=== PATIENT | female | born 1940 | race Caucasian/White ===

== ENCOUNTER → 2016-04-17 | Outpatient (CLI) | payer BC ==
[~2016-04-17] MED LIST: ASPI81TA25 PO; BUTA1CAP20 PO; CALC500C70 PO; DORZ1SOL6 OPL; IPRA0.037 NAE; LINA1CAP PO; MULT-506 PO; OFLO0.3S OPL; OMEP20CA9 PO; PRED1SUS3 OPL; PRED1SUS3 OPR; PRIM50TA29 PO; PROP10TA7 PO; PRVC10 PO; [UNRECOGNIZED DRUG - CODE] PO; [UNRECOGNIZED DRUG - CODE] PO
== END | disposition home or self-care (01) ==
LOC: C.PAPS 14:04
PROVIDERS: ATTEND Obstetrics & Gynecology
DX: Z01.419 Encounter for gynecological examination (general) (routine) without abnormal findings (principal); N81.10 Cystocele, unspecified

== ENCOUNTER → 2016-09-23 | Outpatient (CLI) | payer BC ==
[~2016-09-23] MED LIST changes: +IPRA0.06; +PROP150T2 PO
--- NOTE | 2016-09-23 14:55 | MAMMOGRAPHY REPORT ---
BILATERAL DIGITAL SCREENING MAMMOGRAM WITH CAD: 09/23/2016 CLINICAL HISTORY: Routine screening. Patient has no complaints. TECHNIQUE: Bilateral CC and MLO views were obtained. Current study was also evaluated with a Compute r Aided Detection (CAD) system. COMPARISON: Comparison is made to exams dated: 09/18/2015 mammogram, 09/12/2014 mammogram, 09/10/2013 romy mogram, 09/08/2012 mammogram, 06/26/2010 mammogram, and 06/12/2009 mammogram - [facility] BREAST COMPOSITION: The tissue of both breasts is heterogeneously dense, which may obscure small mas ses. FINDINGS: There are benign-appearing round and coarse calcifications in the breasts. No new suspicio us mass, architectural distortion or cluster of microcalcifications is seen. IMPRESSION: ACR BI-RADS CATEGORY 1: NEGATIVE There is no mammographic evidence of malignancy. A 1 year screening mammogram is recommended. The pa tient will receive written notification of the results. Approximately 10% of breast cancers are not detected with mammography. A negative mammographic report should not delay biopsy if a clinically suggestive mass is present. Sushma Love M.D. ay/:09/23/2016 13:54:21 [employer] Farmworker: Rosie Desai, [facility] letter sent: Normal 1/2 BI-RADS Code: ACR BI-RADS Category 1: Negative
== END | disposition home or self-care (01) ==
LOC: C.MAMM 13:21
PROVIDERS: ATTEND Internal Medicine
DX: Z12.31 Encounter for screening mammogram for malignant neoplasm of breast (principal)

== ENCOUNTER → 2016-10-15 | Outpatient (CLI) | payer BC ==
[~2016-10-15] MED LIST changes: -IPRA0.06; -PROP150T2 PO
== END ==
LOC: C.PATHSPEC 16:29
PROVIDERS: ATTEND Dermatology
DX: L57.0 Actinic keratosis (principal)

== ENCOUNTER → 2016-11-21 | Outpatient (CLI) | payer BC | END | disposition home or self-care (01) | LOC: C.PATHSPEC 17:08 | PROVIDERS: ATTEND Plastic Surgery | DX: D04.4 Carcinoma in situ of skin of scalp and neck (principal) ==

== ENCOUNTER → 2016-12-05 | Outpatient (CLI) | payer BC | END | disposition home or self-care (01) | LOC: C.PATHSPEC 17:56 | PROVIDERS: ATTEND Plastic Surgery | DX: L72.0 Epidermal cyst (principal) ==

== ENCOUNTER → 2016-12-06 | Outpatient (CLI) | payer BC ==
[2016-12-06 10:56] LABS: BASO % 0.7 %; BASO ABS # 0.04 K/uL (0-0.2); COMPLETE YES; EOS % 2.3 %; HEMATOCRIT 40.9 % (37-47); LYMPH % 29.2 %; LYMPH ABS # 1.63 K/uL (1.2-3.4); MEAN CELL VOLUME 90.7 fL (80-100); MEAN CORPUSCULAR HEMOGLOBIN 31.3 pg (25-34); MEAN CORPUSCULAR HGB CONC 34.5 g/dl (32-36); MEAN PLATELET VOLUME 10.5 fL (7.4-10.4); MONO % 9.3 %; NEUT % 58.5 %; PLATELET COUNT 305 K/uL (130-400); RED BLOOD COUNT 4.51 M/uL (4.2-5.4); WHITE BLOOD COUNT 5.59 K/uL (4.8-10.8)
[2016-12-06 11:06] LABS: ALT/SGPT 50 U/L (12-78); AST/SGOT 27 U/L (15-37); BLOOD UREA NITROGEN 13 mg/dl (7-18); BUN/CREATININE RATIO 15.5 (10-20); CALCIUM 9.2 mg/dl (8.5-10.1); CARBON DIOXIDE 33 mmol/L (21-32); CHLORIDE 100 mmol/L (98-107); CREATININE 0.85 mg/dl (0.60-1.20); GLUCOSE 89 mg/dl (70-99); POTASSIUM 4.1 mmol/L (3.5-5.1); SODIUM 135 mmol/L (136-145)
[2016-12-06 11:17] LABS: ALKALINE PHOSPHATASE 86 U/L (45-117); CHOLESTEROL 205 mg/dl (0-200); CHOLESTEROL/HDL RATIO 2.8; HDL CHOLESTEROL 73 mg/dl; LDL CHOLESTEROL CALCULATED 120 mg/dl; THYROID STIMULATING HORMONE 0.847 uIu/ml (0.300-4.500); TRIGLYCERIDES 61 mg/dl (0-150); VERY LOW DENSITY LIPOPROT CALC 12 mg/dl
== END | disposition home or self-care (01) ==
LOC: C.LABBC 09:02
PROVIDERS: ATTEND Internal Medicine
DX: I47.2 Ventricular tachycardia (principal)

== ENCOUNTER 2017-03-17 07:36 | Observation (INO) | payer BC ==
[2017-03-06 10:03] VITALS: BMI 21.0
--- NOTE | 2017-03-06 10:42 | PAT Medication Instructions ---
Service Date Mar 06, 2017. Current Home Medication List Fgacieisix-Toccrymwzgowk-Ffrjv (Butalbital/APAP/Caffeine 50-300-40 mg), 1-2 CAP PO q4-6hprn Calcium/Vitamin D (Os-[place] 500 Plus D), 1 TAB PO QD@1530 Ipratropium [place] (Nasal) (Ipratropium [place]), 2 SPRAYS NA TID Linaclotide (Linzess), 1 CAP PO QAM Multivitamin (Multivitamin), 1 TAB PO QAM [place]-3 Fatty Acids (Abington-3 Plus), 1 CAP PO QAM Omeprazole (Prilosec), 20 MG PO QAM Pravastatin Sod (Pravastatin Sodium), 1 TAB PO Q2D Primidone (Mysoline), 50 MG PO TID Propafenone HCl (Propafenone HCl), 1 TAB PO TID Propranolol Hcl (Inderal), 10 MG PO TID Medication Instructions For Your Scheduled Surgery - Hold the following medications starting tomorrow 03/07: [place]ington-3 Fatty Acids (Abington-3 Plus), 1 CAP PO QAM - Hold the following medications the morning of surgery: Linaclotide (Linzess), 1 CAP PO QAM Multivitamin (Multivitamin), 1 TAB PO QAM Yjyigmwhms-Vccncwkgsqbda-Gfwcw (Butalbital/APAP/Caffeine 50-300-40 mg), 1-2 CAP PO q4-6hprn - Take the following medications the morning of surgery with a sip of water: Propafenone HCl (Propafenone HCl), 1 TAB PO TID Propranolol Hcl (Inderal), 10 MG PO TID Primidone (Mysoline), 50 MG PO TID Ipratropium [place] (Nasal) (Ipratropium [place]), 2 SPRAYS NA TID Omeprazole (Prilosec), 20 MG PO QAM Pravastatin Sod (Pravastatin Sodium), 1 TAB PO Q2D - Take the following medications as scheduled the night before surgery: Propafenone HCl (Propafenone HCl), 1 TAB PO TID Propranolol Hcl (Inderal), 10 MG PO TID Primidone (Mysoline), 50 MG PO TID Calcium/Vitamin D (Os-[place] 500 Plus D), 1 TAB PO QD@1530 Ipratropium [place] (Nasal) (Ipratropium [place]), 2 SPRAYS NA TID If you have any questions please call us at [phone] or [phone] or [phone]
--- NOTE | 2017-03-06 11:23 | DIAGNOSTIC IMAGING REPORT ---
TWO VIEW CHEST CLINICAL HISTORY: Preoperative examination. FINDINGS: PA and lateral chest radiographs are compared to study dated 09/08/2009. The heart is enlarged and there is atherosclerotic calcification of the thoracic ureter. The pulmonary vasculature is noncongested. The mitral annulus is densely calcified. The lungs and pleural spaces are clear. There is no pneumothorax. The skeletal structures are osteopenic. The bony thorax appears intact. Cholecystectomy clips are seen in the right upper quadrant. IMPRESSION: Cardiomegaly with no active disease in the chest. Electronically signed by: Pedro Durán M.D. 03/06/2017 11:21 AM Dictated Date/Time: 03/06/2017 11:20 AM
[2017-03-06 11:50] LABS: BASO % 0.4 %; BASO ABS # 0.02 K/uL (0-0.2); COMPLETE YES; EOS % 1.3 %; HEMATOCRIT 38.8 % (37-47); LYMPH % 20.6 %; LYMPH ABS # 0.97 K/uL (1.2-3.4); MEAN CELL VOLUME 92.4 fL (80-100); MEAN CORPUSCULAR HGB CONC 33.5 g/dl (32-36); MEAN PLATELET VOLUME 9.9 fL (7.4-10.4); MONO % 9.5 %; NEUT % 68.2 %; PLATELET COUNT 268 K/uL (130-400); WHITE BLOOD COUNT 4.72 K/uL (4.8-10.8)
[2017-03-06 13:51] LABS: BUN/CREATININE RATIO 21.9 (10-20); CALCIUM 9.1 mg/dl (8.5-10.1); CREATININE 0.74 mg/dl (0.60-1.20); POTASSIUM 4.8 mmol/L (3.5-5.1)
[~2017-03-17] VITALS: Ht 152.4 cm; Wt 48.6 kg
[2017-03-17] VITALS (12 sets, daily range): BP systolic 125–199; BP diastolic 60–85; PULSE 66–73; TEMP 36.2–36.6; O2SAT 95–99; Ht 152.4 cm; Wt 48.6 kg
[~2017-03-17 07:36] MED LIST changes: -ASPI81TA25 PO; +CEFAZOLIN 2000MG IV PUSH 10 ML IV SCH; -DORZ1SOL6 OPL; -IPRA0.037 NAE; +IPRA0.06; +LACTATED RINGER'S 1000ML 1,000 ML IV SCH; -OFLO0.3S OPL; -PRED1SUS3 OPL; -PRED1SUS3 OPR; +PROP150T2 PO; -[UNRECOGNIZED DRUG - CODE] PO
--- NOTE | 2017-03-17 09:42 | DIAGNOSTIC IMAGING REPORT ---
LYMPH SENTINEL NODE ID CLINICAL HISTORY: BREAST CA TECHNIQUE: Sequential periareolar administration of 0.543 mCi technetium 99m lymphocele COMPARISON STUDY: None FINDINGS: Successful periareolar injection of a total of 0.543 mCi technetium 99m lymphocele IMPRESSION: Successful left periareolar [place] node injection. The above report was generated using voice recognition software. It may contain grammatical, syntax or spelling errors. Electronically signed by: Harshal Metzger M.D. 03/17/2017 9:40 AM Dictated Date/Time: 03/17/2017 9:38 AM
[2017-03-17] MEDS ORDERED: FENTANYL CITRATE INJ 50 MCG/1 ML 2 ML VIAL ONE (10:59)
[2017-03-17] MEDS ORDERED: MIDAZOLAM HCL 1 MG/ML 2ML VIAL ONE (10:59)
[2017-03-17] MEDS ORDERED: BUPIVACAINE 0.5 % 5 MG/1 ML MPF 30ML VIAL ONE (11:37)
[2017-03-17] MEDS ORDERED: METHYLENE BLUE 0.5% 10 ML VIAL ONE (11:37)
[2017-03-17] MEDS ORDERED: ISOSULFAN BLUE 10 MG/ML VIAL 5 ML ONE (11:37)
--- NOTE | 2017-03-17 12:02 | History & Physical Bridge Note ---
H&P Re-Evaluation Bridge Note: I have examined the patient, reviewed the History & Physical and in the interval since the performance of the History & Physical I have noted the following changes of clinical significance: No changes noted
[2017-03-17] MEDS ORDERED: ONDANSETRON INJ 2 MG/ML 2 ML VIAL ONE (12:25)
[2017-03-17] MEDS ORDERED: LIDOCAINE HCL 2% 2 ML VIAL (20MG/ML) ONE (12:25)
[2017-03-17] MEDS ORDERED: DEXAMETHASONE SOD INJ 4 MG/ML VIAL ONE (12:25)
[2017-03-17] MEDS ORDERED: PROPOFOL IV EMULSION 10 MG/ML 20 ML VIAL IV ONE (12:25)
[2017-03-17] MEDS ORDERED: EpHEDrine SULFATE INJ 50 MG/ML AMP ONE (12:31)
--- NOTE | 2017-03-17 13:24 | [facility] Operative Report ---
Operative Report Operative Date Mar 17, 2017. Pre-Operative Diagnosis Left Breast Cancer Post-Operative Diagnosis Left Breast Cancer Procedure(s) Performed Left Breast Lumpectomy with Needle Localization and Left [place] Lymph Node Biopsy Surgeon Dr. Edmondson Drug Abuse Social Worker Surgeon(s) MELO John Estimated Blood Loss 10 ml Findings SLN negative on frozen Specimens Frozen Section #1-- [place] Lymph Node #1 Left Breast--sent to pathology at 1242 A. Additional Left Axillary Tissue B. Left Breast Lumpectomy (needle= medial, skin= anterior, short silk= superior, long silk= inferior, methylene blue= deep/muscle) C. Additional Inferior Tissue Left Breast (Long silk= lateral, short silk= medial, methylene blue= new margin D. Additional Superior Tissue Left Breast (Long silk= lateral, short silk= medial, methylene blue= new margin Anesthesia gen/ LMA Complication(s) None Disposition Recovery Room / PACU I attest to the content of the Intraoperative Record and any orders documented therein. Any exceptions are noted below.
[2017-03-17] MEDS ORDERED: HYDROCODONE/ACETAMOPHEN 5/325MG TAB PO PRN (13:30)
[2017-03-17] MEDS ORDERED: MoRPHine SULFATE 4 MG/ML 1 ML CARP\\VIAL IV PRN (13:30)
[2017-03-17] MEDS ORDERED: ONDANSETRON INJ 2 MG/ML 2 ML VIAL IV PRN ×2 (13:30→13:45)
[2017-03-17] MEDS ORDERED: MoRPHine SULFATE 2 MG/ML CARP IV PRN (13:30)
[2017-03-17] MEDS ORDERED: HYDR-5688 PO (13:33)
--- NOTE | 2017-03-17 13:38 | Discharge Instructions ---
Discharge Instructions Date of Service Mar 17, 2017. Admission Reason for Admission: Left Breast Cancer W/Hosp Loc & Lymph Inj Discharge Discharge Diagnosis / Problem: Lt breast cancer Discharge Goals Goal(s): Decrease discomfort, Improve function, Improve disease control Activity Recommendations Activity Limitations: as noted below Lifting Limitations: no more than 10 pounds Exercise/Sports Limitations: until after follow-up appointment May Resume Sexual Activity: when tolerated Shower/Bathe: keep incision dry (may shower over incisions on 03/19) Driving or Machine Use: one week . Instructions / Follow-Up Instructions / Follow-Up SPECIAL CARE INSTRUCTIONS: * Cover incisions and change daily for comfort/drainage. * Leave steri strips in place * May use ibuprofen for pain as tolerated. * Expect some swelling and bruising. Call your doctor if: * Temperature above 101 degrees * Pain not relieved by pain medicine ordered * There is increased drainage or redness from any incision * You have any unanswered questions or concerns [phone]. FOLLOW UP VISIT: If not already scheduled, please call the office for a follow-up visit. for next week- check up, some suture removal OFFICE PHONE NUMBER: Dr. Edmondson Office Current Hospital Diet Patient's current hospital diet: Regular Diet Discharge Diet Recommended Diet: Regular Diet Procedures Procedures Performed: Left Breast Lumpectomy with Needle Localization and Left [place] Lymph Node Biopsy Pending Studies Studies pending at discharge: no Medical Emergencies . Who to Call and When: Medical Emergencies: If at any time you feel your situation is an emergency, please call 911 immediately. . Non-Emergent Contact Non-Emergency issues call your: Primary Care Provider, Surgeon . "Provider Documentation" section prepared by Raz Edmondson. . VTE Core Measure Inpt VTE Proph given/why not?: SCD's
[2017-03-17] MEDS ORDERED: FLUMAZENIL 0.1 MG/1 ML 10 ML VIAL IV PRN (13:45)
[2017-03-17] MEDS ORDERED: FENTANYL CITRATE INJ 50 MCG/1 ML 2 ML VIAL IV PRN (13:45)
[2017-03-17] MEDS ORDERED: EpHEDrine SULFATE INJ 50 MG/ML AMP IV PRN (13:45)
[2017-03-17] MEDS ORDERED: PROMETHAZINE HCL INJ 12.5 MG in SODIUM CHLORIDE 0.9% 50ML 50 ML IV PRN (13:45)
[2017-03-17] MEDS ORDERED: LABETALOL HCL IV 5 MG/ML 20ML IV PRN (13:45)
[2017-03-17] MEDS ORDERED: ATROPINE SULFATE 0.1 MG/ML 5ML SYR IV PRN (13:45)
[2017-03-17] MEDS ORDERED: NALOXONE HCL 0.4 MG/1 ML VIAL/CARP IV PRN (13:45)
[2017-03-17] MEDS ORDERED: IV FLUIDS COMPLETED PRN (14:00)
--- NOTE | 2017-03-17 14:26 | OPERATIVE REPORT ---
DATE OF OPERATION: 03/17/2017 NAME OF OPERATION: Needle localization, left partial mastectomy with sentinel lymph node biopsy. PREOPERATIVE DIAGNOSIS: Left breast cancer. POSTOPERATIVE DIAGNOSIS: Same. STAFF SURGEON: Raz Edmondson MD SURVEYOR HYDROGRAPHIC: Leslie German PA-C ANESTHESIA: General. PROCEDURE: The patient was brought in the operating room and placed on the operating table in supine position. She had undergone needle localization left breast and also injection in nuclear med for sentinel lymph node biopsy. Her left chest and axilla were prepped and draped in usual fashion. Initially, incision was made in the left axilla using the Neoprobe to identify the sentinel nodes which were sent for frozen section. Frozen section was negative. I did send some additional axillary tissue for permanent section. During the frozen section, we performed lumpectomy, making elliptical incision around the needle which was lateral, taking an ellipse of skin which was anterior down to the pectoralis major muscle, marking the tissue with needle, medial skin anterior, short silk suture superior, long silk suture inferior and methylene blue on the deep margin which was on the muscle. This was placed into the Faxitron, sent to Dr. Love, we had the clip within this tissue. At this point, I took additional superior and inferior tissue with it marked with a short silk suture medial, long silk suture lateral, methylene blue new margin. Two clips were placed on the muscle at the area of the tumor. The deep tissue on both the axilla and breast were reapproximated using 2-0 plain catgut suture, then the skin of the axilla reapproximated using 4-0 nylon suture in the breast using subcuticular 4-0 Monocryl with Steri-Strips. Dressing applied and patient transferred to recovery room in stable condition. I attest to the content of the Intraoperative Record and any orders documented therein. Any exception s are noted below.
--- NOTE | 2017-03-17 14:36 | Anesthesiology Progress Note ---
Anesthesia Post Op Note Date & Time Mar 17, 2017 at 14:36 Vital Signs Pain Intensity: 0 Vital Signs Past 12 Hours Date Time Temp Pulse Resp B/P (MAP) Pulse Ox O2 Delivery O2 Flow Rate FiO2 03/17/17 14:20 65 15 181/87 100 Nasal Cannula 2 03/17/17 14:10 68 18 188/81 98 Nasal Cannula 2 03/17/17 14:00 36.4 68 18 188/78 98 Nasal Cannula 2 03/17/17 13:50 65 18 172/89 98 Oxymask 3 03/17/17 13:40 70 18 178/92 98 Oxymask 5 03/17/17 13:32 36.6 68 16 184/86 99 Oxymask 10 03/17/17 10:02 36.4 68 18 186/85 (118) 97 Room Air Notes Mental Status: alert / awake / arousable, participated in evaluation Pt Amnestic to Procedure: Yes Nausea / Vomiting: adequately controlled Pain: adequately controlled Airway Patency, RR, SpO2: stable & adequate BP & HR: stable & adequate Hydration State: stable & adequate Anesthetic Complications: no major complications apparent
[2017-03-17] MEDS ORDERED: LACTATED RINGER'S 1000ML 1,000 ML IV SCH (16:00)
--- NOTE | 2017-03-17 16:10 | Medical Consult ---
Consultation Date of Consultation: Mar 17, 2017. Attending Physician: Raz Edmondson M.D. Reason for Consultation: Medical Management History of Present Illness Ms. Villafana is a 76 y/o female with PMHx of Idiopathic VT and A Flutter S/P Ablation (2009), IBS-C, HLD, Carotid Stenosis, and Familial Tremor who is S/P L Partial Mastectomy with [place] Lymph Node Bx on 03/17. Patient is currently pain free and verbalizes no complaints. She hasn't had a diet yet but denying any nausea/vomiting. She has a bothersome tremor that easily worsens when not on her maintenance medication. She utilizes Propranolol and Primidone for tremor management. She has been on Propafenone as an anti-arrhythmic long-term. She denies further cardiac history and denies history of DVT. She is hypertensive on vital checks and states she does have fluctuating BPs. Past Medical/Surgical History 1. Idiopathic VT 2. A Flutter S/P Ablation (2009) 3. IBS-C 4. Familial Tremor 5. Carotid Stenosis Family History Breast Cancer SISTER Heart Disease FATHER MOTHER Social History Smoking Status: Never Smoker Smokeless Tobacco Use: No Alcohol Use: none Drug Use: none Marital Status: Housing Status: lives with significant other Occupation Status: retired Allergies Coded Allergies: Sulfa Drugs (Verified Allergy, Mild, rash, 03/17/17) Simvastatin (Unverified Adverse Reaction, Mild, HEADACHE, 03/17/17) Current Inpatient Medications Current Inpatient Medications Medications (Trade) Dose Ordered Sig/Brennen Route Start Time Stop Time Status Last Admin Dose Admin Lactated Ringer's 1,000 ml @ 50 mls/hr Q20H IV 03/17/17 16:00 03/17/17 18:00 Propranolol HCl (Inderal Tab) 10 mg TID PO 03/17/17 16:00 04/16/17 15:59 Cefazolin Sodium 1000 mg/Syringe 5 ml @ 100 mls/hr Q8H IV 03/17/17 20:00 03/18/17 19:59 Acetaminophen/ Hydrocodone Bitart ([place] 5/325 Tab) 1 tab Q4 PRN PO 03/17/17 13:30 03/31/17 13:29 Acetaminophen/ Hydrocodone Bitart ([place] 5/325 Tab) 2 tab Q4 PRN PO 03/17/17 13:30 03/31/17 13:29 Morphine Sulfate (MoRPHine SULFATE INJ) 2 mg Q4H PRN IV 03/17/17 13:30 03/31/17 13:29 Morphine Sulfate (MoRPHine SULFATE INJ) 4 mg Q4H PRN IV 03/17/17 13:30 03/31/17 13:29 Ondansetron HCl (Zofran Inj) 4 mg Q6H PRN IV 03/17/17 13:30 04/16/17 13:29 Fentanyl Citrate (Fentanyl Inj) 25 mcg Q5M PRN IV 03/17/17 13:45 03/17/17 18:45 Naloxone HCl (Narcan Inj) 0.2 mg Q2M PRN IV 03/17/17 13:45 03/17/17 18:45 Flumazenil (Romazicon Inj) 0.2 mg Q2M PRN IV 03/17/17 13:45 03/17/17 18:45 Ondansetron HCl (Zofran Inj) 4 mg ONE PRN IV 03/17/17 13:45 03/17/17 18:45 Promethazine HCl 12.5 mg/Sodium Chloride 50.5 ml @ 202 mls/hr ONE PRN IV 03/17/17 13:45 03/17/17 18:45 Labetalol HCl (Normodyne IV) 5 mg Q5M PRN IV 03/17/17 13:45 03/17/17 18:45 Ephedrine Sulfate (EpHEDrine SULFATE INJ) 5 mg Q5M PRN IV 03/17/17 13:45 03/17/17 18:45 Atropine Sulfate (Atropine Sulfate 0.1MG/Ml Inj) 0.5 mg Q1M PRN IV 03/17/17 13:45 03/17/17 18:45 Miscellaneous (Iv Fluids Completed) 1 ea PRN PRN N/A 03/17/17 14:00 03/17/18 13:59 Review of Systems Constitutional: No fever, No chills Respiratory: No cough, No shortness of breath Cardiovascular: No chest pain Abdomen: + constipation (chronic issue), No pain, No nausea, No vomiting, No diarrhea Musculoskeletal: No swelling, No calf pain Genitourinary - Female: No dysuria Hematologic / Lymphatic: No abnormal bleeding/bruising Integumentary: No rash Physical Exam Date Time Temp Pulse Resp B/P (MAP) Pulse Ox O2 Delivery O2 Flow Rate FiO2 03/17/17 15:43 36.2 73 16 175/84 (114) 98 Room Air 03/17/17 14:45 36.4 70 18 199/84 (122) 97 Room Air 03/17/17 14:20 65 15 181/87 100 Nasal Cannula 2 03/17/17 14:10 68 18 188/81 98 Nasal Cannula 2 03/17/17 14:00 36.4 68 18 188/78 98 Nasal Cannula 2 03/17/17 13:50 65 18 172/89 98 Oxymask 3 03/17/17 13:40 70 18 178/92 98 Oxymask 5 03/17/17 13:32 36.6 68 16 184/86 99 Oxymask 10 03/17/17 10:02 36.4 68 18 186/85 (118) 97 Room Air General Appearance: no apparent distress, + thin Head: normocephalic, atraumatic Eyes: sclerae normal ENT: hearing grossly normal Neck: supple, no JVD, trachea midline Respiratory/Chest: lungs clear, + pertinent finding (dressing to upper/mid L chest - C/D/I) Cardiovascular: regular rate, rhythm, no gallop, no murmur Abdomen/GI: normal bowel sounds, non tender, soft Back: normal inspection Extremities/Musculoskelatal: no calf tenderness, no pedal edema Neurologic/Psych: alert, oriented x 3, + pertinent finding (mild tremor of hands/head) Skin: normal color, warm/dry Assessment & Plan Ms. Villafana is a 76 y/o female with PMHx of Idiopathic VT and A Flutter S/P Ablation (2009), IBS-C, HLD, Carotid Stenosis, and Familial Tremor who is S/P L Partial Mastectomy with [place] Lymph Node Bx on 03/17. S/P Partial Mastectomy with [place] Lymph Node Bx on 03/17: - Pain management, IVF, DVT prophylaxis per primary Hypertension: - Reporting fluctuating BPs chronically - may be situational and would recommend monitoring - Should be discussed with PCP about anti-hypertensives if warranted Idiopathic VT and A Flutter S/P Ablation (2009): STABLE - Examination reveals a normal rhythm - Propafenone 150 mg TID Familial Tremor: - Propranolol 10 mg TID and Primidone 50 mg TID HLD/Mild Carotid Stenosis: - Continue Pravastatin Q2D IBS-C: - On Linzess - non-formulary and can be continued on D/C; recommend good bowel regimen Thank you for the consultation. We will continue to follow
[2017-03-17] MEDS: PROPRANOLOL HCL 10 MG TAB PO SCH ×2 (16:31→21:45)
[2017-03-17] MEDS: HYDROCODONE/ACETAMOPHEN 5/325MG TAB PO PRN ×2 (18:06→22:32)
[2017-03-17] MEDS: CEFAZOLIN IV 1,000 MG in SYRINGE 0 ML IV SCH (19:34)
[2017-03-17] MEDS: PRIMIDONE 50 MG TAB PO SCH (21:45)
[2017-03-17] MEDS: PROPAFENONE HCL 150 MG TAB PO SCH (21:45)
[2017-03-18 03:34] VITALS: BP 161/65; PULSE 68; TEMP 36.6; O2SAT 98
[2017-03-18] MEDS: CEFAZOLIN IV 1,000 MG in SYRINGE 0 ML IV SCH (03:42)
--- NOTE | 2017-03-18 07:01 | DISCHARGE SUMMARY ---
PRINCIPAL DIAGNOSIS: Left breast cancer. PROCEDURES: The patient underwent left breast lumpectomy with sentinel lymph node biopsy. HISTORY OF PRESENT ILLNESS: The patient is a 76-year-old female who had undergone prior biopsy of left breast showing breast cancer. HOSPITAL COURSE: The patient was brought into the hospital on 03/17/2017 where she underwent prior needle localization with breast injection and then left sentinel lymph node biopsy with left lumpectomy. The patient did very well overnight and is felt stable for discharge home today to be followed in the surgical clinic next week.
[2017-03-18 07:08] VITALS: BP 159/74; PULSE 68; TEMP 36.7; O2SAT 97
[2017-03-18] MEDS: PRIMIDONE 50 MG TAB PO SCH (07:24)
[2017-03-18] MEDS: PROPAFENONE HCL 150 MG TAB PO SCH (07:25)
[2017-03-18] MEDS: PROPRANOLOL HCL 10 MG TAB PO SCH (07:25)
--- NOTE | 2017-03-18 07:46 | MAMMOGRAPHY REPORT ---
NEEDLE LOCALIZATION LEFT BREAST: 03/17/2017 CLINICAL HISTORY: Biopsy-proven carcinoma in the 7:00 left breast. Patient presents for preoperative needle wire localization prior to lumpectomy. COMPARISON: Comparison is made to exams dated: 02/07/2017 ultrasound biopsy, 02/07/2017 mammogram, ultrasound, 01/30/2017 mammogram, 09/23/2016 mammogram, and 09/18/2015 mammogram - [facility]. PATIENT CONSENT: The risks of the procedure were explained to the patient and informed consent was ob tained. The patient denied eating or drinking anything this morning that would preclude anesthesia. She also denied allergy to lidocaine. PROCEDURE DESCRIPTION: Prior diagnostic mammogram and ultrasound of the left breast dated 01/30/2017, ultrasound-guided core biopsy of the left breast dated 02/07/2017 and post procedure mammograms from the same day were reviewed. The 11 mm hypoechoic palpable mass in the 7:00 left breast as the inten ded target for preoperative localization. With the patient in supine position, the skin of the left breast was cleansed with Betadine. 1% buffered Lidocaine without epinephrine was administered as loc al anesthesia. A 5cm Heard II needle and wire combination was inserted into the breast. Optimal pos itioning was confirmed and the wire was locked in place, leaving both the needle and wire within the breast, as per surgeon's preference. Postprocedure left CC and ML views were obtained. In the CC pr ojection, the localizing needle and wire are both optimally visualized. The biopsy marker clip is ju st anterior to the notch in the needle from which the wire exits. The entire procedure including luna bae and needle length were discussed with the operating surgeon prior to surgery. The patient lawrence rated the procedure well and there was no immediate complication. She was transferred to the operati ng room in satisfactory condition. The left breast specimen radiograph demonstrates the localizing needle and wire, ribbon-shaped biopsy marker clip and groupings of microcalcifications and density, compatible with successful preoperativ e localization and subsequent surgical excision. IMPRESSION: NEEDLE LOCALIZATION Status post successful preoperative needle wire localization for biopsy-proven carcinoma in the 7:00 left breast. The imaged specimen includes the intended abnormalities. The patient will receive notification of the final pathology results from her referring physician. Sushma Love M.D. ay/:03/17/2017 15:05:58 [employer] Supervisor: Laya SIMMONS(Bonnie)(Mirna), [facility]
--- NOTE | 2017-03-18 07:46 | MAMMOGRAPHY REPORT ---
SPECIMEN: 03/17/2017 CLINICAL HISTORY: Recent biopsy proven left breast carcinoma. Patient presents for preoperative need le and wire localization. Please refer to the report from left breast ultrasound guided needle localization performed at the [facility] time for full detail. IMPRESSION: SPECIMEN Please refer to the report from left breast ultrasound guided needle localization performed at the [facility] time for full detail. Sushma Love M.D. ay/:03/17/2017 15:02:18 Teaching Manager: Laya SIMMONS(R)(M), [facility]
--- NOTE | 2017-03-18 07:49 | MAMMOGRAPHY REPORT ---
UNILATERAL LEFT DIGITAL DIAGNOSTIC MAMMOGRAM TOMOSYNTHESIS: 03/17/2017 CLINICAL HISTORY: 76-year-old woman presents for preoperative needle localization in the left breast for recent biopsy proven carcinoma. Please refer to the report from left breast needle localization with imaging performed at the same ti me for full detail. IMPRESSION: Please refer to the report from left breast needle localization with imaging performed at the same ti me for full detail. Approximately 10% of breast cancers are not detected with mammography. A negative mammographic report should not delay biopsy if a clinically suggestive mass is present. Sushma Love M.D. ay/:03/17/2017 08:30:25 Pharmaceutical Engineer: Laya SIMMONS(Bonnie)(M), [facility] BI-RADS Code: n/a
--- NOTE | 2017-03-18 07:53 | Anesthesiology Progress Note ---
Anesthesia Post Op Note Date & Time Mar 18, 2017 at 07:53 Vital Signs Pain Intensity: 0.0 Vital Signs Past 12 Hours Date Time Temp Pulse Resp B/P (MAP) Pulse Ox O2 Delivery O2 Flow Rate FiO2 03/18/17 07:40 Room Air 03/18/17 07:08 36.7 68 18 159/74 (102) 97 Room Air 03/18/17 03:34 36.6 68 18 161/65 (97) 98 Room Air 03/18/17 00:15 Room Air 03/17/17 22:57 36.4 69 16 125/60 (81) 99 Room Air 03/17/17 21:45 69 154/69 (97) 03/17/17 20:27 95 Room Air Notes Mental Status: alert / awake / arousable, participated in evaluation Pt Amnestic to Procedure: Yes Nausea / Vomiting: adequately controlled Pain: adequately controlled Airway Patency, RR, SpO2: stable & adequate BP & HR: stable & adequate Hydration State: stable & adequate Anesthetic Complications: no major complications apparent
[2017-03-18 08:10] VITALS: BP 159/74; PULSE 68; TEMP 36.7; O2SAT 97
== END 2017-03-18 10:26 | disposition home or self-care (01) ==
LOC: C.ACU 07:36 → C.MSN 09:25 → ENRESERV 13:56
PROVIDERS: ADMIT Surgery; ATTEND Surgery
DX: C50.912 Malignant neoplasm of unspecified site of left female breast (principal); I65.29 Occlusion and stenosis of unspecified carotid artery; I47.2 Ventricular tachycardia; K58.9 Irritable bowel syndrome, unspecified; I10 Essential (primary) hypertension; E78.5 Hyperlipidemia, unspecified; K21.9 Gastro-esophageal reflux disease without esophagitis; Z80.3 Family history of malignant neoplasm of breast; Z82.49 Family history of ischemic heart disease and other diseases of the circulatory system

== ENCOUNTER → 2017-04-10 | Outpatient (CLI) | payer BC ==
[~2017-04-10] MED LIST changes: +ASPI81TA28 PO; -CALC500C70 PO; -CEFAZOLIN 2000MG IV PUSH 10 ML IV SCH; +DIPH25CA5 PO; -LACTATED RINGER'S 1000ML 1,000 ML IV SCH; -[UNRECOGNIZED DRUG - CODE] PO
--- NOTE | 2017-04-10 10:16 | DIAGNOSTIC IMAGING REPORT ---
L PELVIS UNI HIP 2-3 V CLINICAL HISTORY: LEFT HIP PAIN pain COMPARISON: None. DISCUSSION: Nondisplaced cortical fracture medial left pubic ring. Mild degenerative change left hip. No evidence for acetabular protrusion. Right hip is unremarkable. There is no evidence for soft tissue swelling. IMPRESSION: Nondisplaced cortical/buckle fracture left symphysis pubis/medial pubic ring. No acute process of the hips. The above report was generated using voice recognition software. It may contain grammatical, syntax or spelling errors. Electronically signed by: Harshal Metzger M.D. 04/10/2017 10:15 AM Dictated Date/Time: 04/10/2017 10:14 AM
== END | disposition home or self-care (01) ==
LOC: C.RDSM 10:48
PROVIDERS: ATTEND Family Medicine
DX: M25.552 Pain in left hip (principal)

== ENCOUNTER → 2017-05-01 | Outpatient (CLI) | payer BC ==
--- NOTE | 2017-05-01 11:26 | DIAGNOSTIC IMAGING REPORT ---
L PELVIS UNI HIP 2-3 V CLINICAL HISTORY: Left hip pain. Follow-up pelvic fracture. COMPARISON: Pelvis and left hip radiograph April 10, 2017. FINDINGS: No proximal left femoral fracture is noted. A mildly displaced fracture of the medial left pubic bone is similar appearance to prior exam of April 10, 2017. There is equivocal cortical irregularity of the right sacral ala. IMPRESSION: 1. No change in alignment of the minimally displaced medial left pubic bone fracture. 2. Possible right sacral ala fracture. Electronically signed by: Michi Mcclendon M.D. 05/01/2017 11:24 AM Dictated Date/Time: 05/01/2017 11:22 AM
== END | disposition home or self-care (01) ==
LOC: C.RDSM 11:05
PROVIDERS: ATTEND Family Medicine
DX: M25.552 Pain in left hip (principal)

== ENCOUNTER → 2017-05-29 | Outpatient (CLI) | payer BC ==
--- NOTE | 2017-05-29 11:31 | DIAGNOSTIC IMAGING REPORT ---
L PELVIS UNI HIP 2-3 V CLINICAL HISTORY: LEFT HIP PAIN COMPARISON: 05/01/2017 DISCUSSION: There is a healing fracture of the left medial pubic bone. No acute fractures are visualized. There are no dislocations. Note is made of a pessary. IMPRESSION: 1. Healing fracture of the left medial pubic bone 2. No evidence of hip fracture. Electronically signed by: Bernard Mo M.D. 05/29/2017 11:30 AM Dictated Date/Time: 05/29/2017 11:28 AM
== END | disposition home or self-care (01) ==
LOC: C.RDSM 17:34
PROVIDERS: ATTEND Family Medicine
DX: M25.552 Pain in left hip (principal)

== ENCOUNTER → 2017-07-10 | Outpatient (CLI) | payer BC | END | disposition home or self-care (01) | LOC: C.MAMM 09:44 | PROVIDERS: ATTEND Internal Medicine Hematology & Oncology | DX: C50.919 Malignant neoplasm of unspecified site of unspecified female breast (principal); M85.88 Other specified disorders of bone density and structure, other site ==

== ENCOUNTER 2017-08-12 09:33 | Inpatient (IN) | payer BC, OTHER ==
[~2017-08-12] VITALS: Ht 152.4 cm; Wt 51.3 kg
[2017-08-12] VITALS (7 sets, daily range): BP systolic 127–171; BP diastolic 69–78; PULSE 64–74; TEMP 36.5–36.7; O2SAT 95–99; Ht 152.4 cm; Wt 51.3 kg
[2017-08-12] MEDS ORDERED: SODIUM CHLORIDE 0.9% 1000ML 1,000 ML IV STA (10:11)
[2017-08-12 10:18] LABS: BASO % 0.5 %; BASO ABS # 0.03 K/uL (0-0.2); EOS % 1.7 %; EOS ABS # 0.11 K/uL (0-0.5); HEMATOCRIT 37.6 % (37-47); IG# 0.01 K/uL (0.00-0.02); LYMPH % 19.3 %; LYMPH ABS # 1.28 K/uL (1.2-3.4); MEAN CELL VOLUME 89.3 fL (80-100); MEAN CORPUSCULAR HEMOGLOBIN 30.9 pg (25-34); MEAN CORPUSCULAR HGB CONC 34.6 g/dl (32-36); MEAN PLATELET VOLUME 9.7 fL (7.4-10.4); MONO % 8.1 %; MONO ABS # 0.54 K/uL (0.11-0.59); NEUT % 70.2 %; NEUT ABS # 4.67 K/uL (1.4-6.5); PLATELET COUNT 288 K/uL (130-400); RED CELL DISTRIBUTION WIDTH CV 14.2 % (11.5-14.5); RED CELL DISTRIBUTION WIDTH SD 46.3 fL (36.4-46.3); WHITE BLOOD COUNT 6.64 K/uL (4.8-10.8)
[2017-08-12] MEDS ORDERED: ARM1 PO (10:26)
[2017-08-12 10:27] LABS: ALBUMIN 3.4 gm/dl (3.4-5.0); ALT/SGPT 31 U/L (12-78); AST/SGOT 27 U/L (15-37); BLOOD UREA NITROGEN 18 mg/dl (7-18); CALCIUM 8.7 mg/dl (8.5-10.1); CARBON DIOXIDE 26 mmol/L (21-32); CREATININE 1.03 mg/dl (0.60-1.20); GLUCOSE 143 mg/dl (70-99); POTASSIUM 4.3 mmol/L (3.5-5.1); SODIUM 134 mmol/L (136-145)
--- NOTE | 2017-08-12 10:33 | DIAGNOSTIC IMAGING REPORT ---
CHEST ONE VIEW PORTABLE HISTORY: EVALUATE ALTERED MENTAL STATUS/WEAKNESS COMPARISON: Chest 03/06/2017. FINDINGS: Stable punctate calcified granuloma within the right midlung zone. The lungs are otherwise clear. No pleural effusions. No pneumothorax. The heart remains mildly enlarged. IMPRESSION: Stable mild cardiomegaly. Electronically signed by: Devaughn Guadarrama M.D. 08/12/2017 10:32 AM Dictated Date/Time: 08/12/2017 10:31 AM
[2017-08-12 10:37] LABS: ALKALINE PHOSPHATASE 70 U/L (45-117); TOTAL PROTEIN 6.8 gm/dl (6.4-8.2)
[2017-08-12] MEDS ORDERED: ALUMINUM/MAGNESIUM/SIMETH (MAALOX MAX) 30 ML UDC PO PRN (11:15)
[2017-08-12] MEDS ORDERED: POLYETHYLENE (MIRALAX) 17 GM PACK PO PRN (11:15)
[2017-08-12] MEDS ORDERED: MAGNESIUM HYDROXIDE SUSP 30 ML UDC PO PRN (11:15)
[2017-08-12] MEDS ORDERED: ACETAMINOPHEN 325 MG TAB PO PRN (11:15)
[2017-08-12] MEDS ORDERED: MoRPHine SULFATE 2 MG/ML CARP IV PRN (11:15)
[2017-08-12] MEDS ORDERED: ONDANSETRON INJ 2 MG/ML 2 ML VIAL IV PRN (11:15)
--- NOTE | 2017-08-12 12:08 | History and Physical ---
History & Physical Date & Time of Service: August 12, 2017 at 11:51 Chief Complaint: Primary Care Physician: Ramon Ortiz M.D. History of Present Illness Source: patient 77 y/o F hx VT - ablation, tremor, HPL, breast CA. 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 She was transported to the ER after a code purple was called. She had regained full consciousness and was asymptomatic on arrival. She denies CP, SOB, nausea and vomiting and did not fully lose consciousness. Initial EKG revealed AF with an average rate of 60 and pauses of 2-3 seconds. A repeat EKG showed reversion to a sinus rhythm. Past Medical/Surgical History 1) VT - history of ablation 2) HPL 3) Breast CA 4) Tremor Family History Breast Cancer SISTER Heart Disease FATHER MOTHER Social History Smoking Status: Never Smoker Drug Use: none Marital Status: Housing status: lives with family Occupational Status: retired Immunizations History of Influenza Vaccine: Yes Influenza Vaccine Date: Dec 17, 2006 History of Tetanus Vaccine?: Unknown History of Pneumococcal: Unknown Pneumococcal Date: August 17, 2007 History of Hepatitis B Vaccine: Unknown Allergies Coded Allergies: Sulfa Drugs (Verified Allergy, Mild, rash, 08/12/17) Simvastatin (Unverified Adverse Reaction, Mild, HEADACHE, 08/12/17) Home Medications Scheduled Anastrozole (Anastrozole), 1 MG PO DAILY Aspirin (Aspirin Ec), 81 MG PO DAILY Tkhptwqjve-Tvbimjlptwgfb-Pmejn (Butalbital/APAP/Caffeine 50-300-40 mg), 1-2 CAP PO q4-6hprn Ipratropium [place] (Nasal) (Ipratropium [place]), 2 SPRAYS NA TID Linaclotide (Linzess), 145 MCG PO QAM Multivitamin (Multivitamin), 1 TAB PO QAM Omeprazole (Prilosec), 20 MG PO QAM Pravastatin Sod (Pravastatin Sodium), 10 MG PO Q2D Primidone (Mysoline), 50 MG PO TID Propafenone HCl (Propafenone HCl), 150 MG PO TID Propranolol Hcl (Inderal), 10 MG PO TID Scheduled PRN Diphenhydramine Hcl (Benadryl), 25 MG PO HS PRN for Sleep Review of Systems Constitutional: + sweats, No fever, No chills Eyes: No worsening of vision ENT: No hearing loss, No unusual epistaxis, No nasal symptoms Respiratory: No cough, No sputum, No wheezing Cardiovascular: + palpitations, No chest pain, No orthopnea, No PND Abdomen: No pain, No nausea, No vomiting Musculoskeletal: No joint pain Genitourinary - Female: No dysuria, No urinary frequency, No urinary urgency Neurologic: + problem reported (Near-sncope as above - chronic tremor), No memory loss, No paralysis Psychiatric: No depression symptoms Endocrine: No fatigue Hematologic / Lymphatic: No abnormal bleeding/bruising Integumentary: No rash Allergic / Immunologic: No environmental allergies Physical Exam Vital Signs Date Time Temp Pulse Resp B/P (MAP) Pulse Ox O2 Delivery O2 Flow Rate FiO2 08/12/17 11:47 73 161/78 100 08/12/17 10:57 64 18 146/73 95 Room Air 08/12/17 10:38 97 Room Air 08/12/17 10:26 66 16 143/70 99 Room Air 08/12/17 09:54 36.4 58 16 120/65 97 Room Air 08/12/17 09:41 49 General Appearance: WD/WN, no apparent distress Head: normocephalic Eyes: normal inspection ENT: normal ENT inspection, pharynx normal Neck: supple, no adenopathy, no JVD Cardiovascular: regular rate, rhythm, no edema, no gallop Abdomen/GI: normal bowel sounds, non tender, soft Back: normal inspection, no CVA tenderness Extremities/Musculoskelatal: normal inspection, no calf tenderness, normal capillary refill Neurologic/Psych: normal reflexes Diagnostics Laboratory Results Results Past 24 Hours Test 08/12/17 09:35 Range/Units White Blood Count 6.64 4.8-10.8 K/uL Red Blood Count 4.21 4.2-5.4 M/uL Hemoglobin 13.0 12.0-16.0 g/dL Hematocrit 37.6 37-47 % Mean Corpuscular Volume 89.3 80-100 fL Mean Corpuscular Hemoglobin 30.9 25-34 pg Mean Corpuscular Hemoglobin Concent 34.6 32-36 g/dl Platelet Count 288 130-400 K/uL Mean Platelet Volume 9.7 7.4-10.4 fL Neutrophils (%) (Auto) 70.2 % Lymphocytes (%) (Auto) 19.3 % Monocytes (%) (Auto) 8.1 % Eosinophils (%) (Auto) 1.7 % Basophils (%) (Auto) 0.5 % Neutrophils # (Auto) 4.67 1.4-6.5 K/uL Lymphocytes # (Auto) 1.28 1.2-3.4 K/uL Monocytes # (Auto) 0.54 0.11-0.59 K/uL Eosinophils # (Auto) 0.11 0-0.5 K/uL Basophils # (Auto) 0.03 0-0.2 K/uL RDW Standard Deviation 46.3 36.4-46.3 fL RDW Coefficient of Variation 14.2 11.5-14.5 % Immature Granulocyte % (Auto) 0.2 % Immature Granulocyte # (Auto) 0.01 0.00-0.02 K/uL Prothrombin Time 10.6 9.0-12.0 SECONDS Prothromb Time International Ratio 1.0 0.9-1.1 Activated Partial Thromboplast Time 25.0 21.0-31.0 SECONDS Partial Thromboplastin Ratio 1.0 Sodium Level 134 136-145 mmol/L Potassium Level 4.3 3.5-5.1 mmol/L Chloride Level 101 98-107 mmol/L Carbon Dioxide Level 26 21-32 mmol/L Anion Gap 8.0 3-11 mmol/L Blood Urea Nitrogen 18 7-18 mg/dl Creatinine 1.03 0.60-1.20 mg/dl Est Creatinine Clear Calc Drug Dose 35.9 ml/min Estimated GFR () 60.3 Estimated GFR (Non- 52.0 BUN/Creatinine Ratio 17.9 10-20 Random Glucose 143 70-99 mg/dl Calcium Level 8.7 8.5-10.1 mg/dl Magnesium Level 2.0 1.8-2.4 mg/dl Total Bilirubin 0.3 0.2-1 mg/dl Direct Bilirubin < 0.1 0-0.2 mg/dl Aspartate Amino Transf (AST/SGOT) 27 15-37 U/L Alanine Aminotransferase (ALT/SGPT) 31 12-78 U/L Alkaline Phosphatase 70 45-117 U/L Troponin I < 0.015 0-0.045 ng/ml Total Protein 6.8 6.4-8.2 gm/dl Albumin 3.4 3.4-5.0 gm/dl Thyroid Stimulating Hormone (TSH) 2.550 0.300-4.500 uIu/ml Impression Assessment and Plan 77 y/o F hx VT - ablation, tremor, HPL, breast CA. 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 She was transported to the ER after a code purple was called. She had regained full consciousness and was asymptomatic on arrival. She denies CP, SOB, nausea and vomiting and did not fully lose consciousness. Initial EKG revealed AF with an average rate of 60 and pauses of 2-3 seconds. A repeat EKG showed reversion to a sinus rhythm. 1) Near-syncope - AF with pauses on monitor. Pt is assigned to telemetry. Pending further instructions from cardiology, we have continued her Propafenone and Inderal. A defibrillator is applied and an echo is requested. Would consider full-dose anticoagulation on DC considering her age. We will repeat another trop at a 6 hour interval. 2) Tremor - Primidone and Inderal continued 3) HPL - cont HS statin Full code - Heparin prophylaxis Total time for this admit including review of labs, meds, imaging, EKG - discussion with pt and ER attending - 38 min Resuscitation Status VTE Prophylaxis Will order VTE Prophylaxis: Yes
[2017-08-12] MEDS: HEPARIN SOD 5000 UNIT/0.5 ML CARP SQ SCH ×2 (14:00→21:36)
--- NOTE | 2017-08-12 14:03 | EMERGENCY ROOM VISIT NOTE ---
History Report prepared by Devan: Kelvin Durán Under the Supervision of: Dr. Mj Valles D.O. First contact with patient: 09:55 Chief Complaint: SYNCOPE (NEAR SYNCOPE) Nursing Triage Summary: PT HERE FROM 3RD FLOOR, WAS A CODE PURPLE. 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 PT STATES FEELS LIGHTHEADED. PT HAS HX OF ABLASION,AFIB. PT DENIES ANY CHEST PAINS OR SOB. History of Present Illness The patient is a 77 year old female who presents to the Emergency Room with complaints of a near-syncopal episode occurring just prior to arrival. The patient also complains of dizziness and right arm numbness with her episode. 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 She states that she was unable to stand up at this time. The patient's symptoms have all since resolved. A code purple was called for the patient. The patient has a history of V-tach with cardiac ablation. She was unable to feel her pulse during the episode today. She notes that she had some fluttering sensations in her chest before going to bed last night, but this is normal for her occasionally. Pt denies headache, change in vision, fevers, chest pain, heart palpitations, shortness of breath, nausea, vomiting, diarrhea , weakness, pain with urination, and melena. Source of History: patient Onset: Just prior to arrival Quality: other (Near-syncope) Timing: other (episode) Associated Symptoms: + numbness (right arm), No fevers, No headache, No chest pain, No SOB, No nausea, No vomiting, No abdominal pain, No melena, No diarrhea, No weakness Note: Negative: heart palpitations. Positive: dizziness. Review of Systems See HPI for pertinent positives & negatives. A total of 10 systems reviewed and were otherwise negative. Past Medical & Surgical Medical Problems: (1) Arrhythmia (2) Breast cancer (3) Near syncope (4) V tach Surgical Problems: (1) H/O cardiac radiofrequency ablation Family History Breast Cancer SISTER Heart Disease FATHER MOTHER Social History Smoking Status: Never Smoker Drug Use: none Marital Status: Housing Status: lives with significant other Occupation Status: retired Current/Historical Medications Scheduled Anastrozole (Anastrozole), 1 MG PO DAILY Aspirin (Aspirin Ec), 81 MG PO DAILY Fsrnziyayy-Verfooweuctyc-Ixiga (Butalbital/APAP/Caffeine 50-300-40 mg), 1-2 CAP PO q4-6hprn Ipratropium [place] (Nasal) (Ipratropium [place]), 2 SPRAYS NA TID Linaclotide (Linzess), 145 MCG PO QAM Multivitamin (Multivitamin), 1 TAB PO QAM Omeprazole (Prilosec), 20 MG PO QAM Pravastatin Sod (Pravastatin Sodium), 10 MG PO Q2D Primidone (Mysoline), 50 MG PO TID Propafenone HCl (Propafenone HCl), 150 MG PO TID Propranolol Hcl (Inderal), 10 MG PO TID Scheduled PRN Diphenhydramine Hcl (Benadryl), 25 MG PO HS PRN for Sleep Allergies Coded Allergies: Sulfa Drugs (Verified Allergy, Mild, rash, 08/12/17) Simvastatin (Unverified Adverse Reaction, Mild, HEADACHE, 08/12/17) Physical Exam Vital Signs Date Time Temp Pulse Resp B/P (MAP) Pulse Ox O2 Delivery O2 Flow Rate FiO2 08/12/17 10:57 64 18 146/73 95 Room Air 08/12/17 10:38 97 Room Air 08/12/17 10:26 66 16 143/70 99 Room Air 08/12/17 09:54 36.4 58 16 120/65 97 Room Air 08/12/17 09:41 49 Physical Exam GENERAL: Sitting up in bed, disheveled, no distress, non-toxic EYE EXAM: normal conjunctiva. OROPHARYNX: no exudate, no erythema, lips, buccal mucosa, and tongue normal and mucous membranes are moist NECK: supple, no nuchal rigidity, no adenopathy, non-tender LUNGS: Clear to auscultation. Normal chest wall mechanics HEART: Irregularly irregular rhythm, no murmurs, S1 normal and S2 normal ABDOMEN: abdomen soft, non-tender, normo-active bowel sounds, no masses, no rebound or guarding. BACK: Back is symmetrical on inspection and there is no deformity, no midline tenderness, no CVA tenderness. SKIN: no rashes and no bruising UPPER EXTREMITIES: upper extremities are grossly normal. LOWER EXTREMITIES: No pitting edema. NEURO EXAM: Normal sensorium, cranial nerves II-XII grossly intact, normal speech, no gross weakness of arms, no gross weakness of legs. Medical Decision & Procedures ER Provider Diagnostic Interpretation: Radiology results as stated below per my review and the radiologist's interpretation: CHEST ONE VIEW PORTABLE FINDINGS: Stable punctate calcified granuloma within the right midlung zone. The lungs are otherwise clear. No pleural effusions. No pneumothorax. The heart remains mildly enlarged. IMPRESSION: Stable mild cardiomegaly. Electronically signed by: Devaughn Guadarrama M.D. 08/12/2017 10:32 AM Laboratory Results 08/12/17 09:35 Red Blood Count 4.21, Mean Corpuscular Volume 89.3, Mean Corpuscular Hemoglobin 30.9, Mean Corpuscular Hemoglobin Concent 34.6, Mean Platelet Volume 9.7, Neutrophils (%) (Auto) 70.2, Lymphocytes (%) (Auto) 19.3, Monocytes (%) (Auto) 8.1, Eosinophils (%) (Auto) 1.7, Basophils (%) (Auto) 0.5, Neutrophils # (Auto) 4.67, Lymphocytes # (Auto) 1.28, Monocytes # (Auto) 0.54, Eosinophils # (Auto) 0.11, Basophils # (Auto) 0.03 08/12/17 09:35 Test 08/12/17 09:35 White Blood Count 6.64 K/uL (4.8-10.8) Red Blood Count 4.21 M/uL (4.2-5.4) Hemoglobin 13.0 g/dL (12.0-16.0) Hematocrit 37.6 % (37-47) Mean Corpuscular Volume 89.3 fL (80-100) Mean Corpuscular Hemoglobin 30.9 pg (25-34) Mean Corpuscular Hemoglobin Concent 34.6 g/dl (32-36) Platelet Count 288 K/uL (130-400) Mean Platelet Volume 9.7 fL (7.4-10.4) Neutrophils (%) (Auto) 70.2 % Lymphocytes (%) (Auto) 19.3 % Monocytes (%) (Auto) 8.1 % Eosinophils (%) (Auto) 1.7 % Basophils (%) (Auto) 0.5 % Neutrophils # (Auto) 4.67 K/uL (1.4-6.5) Lymphocytes # (Auto) 1.28 K/uL (1.2-3.4) Monocytes # (Auto) 0.54 K/uL (0.11-0.59) Eosinophils # (Auto) 0.11 K/uL (0-0.5) Basophils # (Auto) 0.03 K/uL (0-0.2) RDW Standard Deviation 46.3 fL (36.4-46.3) RDW Coefficient of Variation 14.2 % (11.5-14.5) Immature Granulocyte % (Auto) 0.2 % Immature Granulocyte # (Auto) 0.01 K/uL (0.00-0.02) Prothrombin Time 10.6 SECONDS (9.0-12.0) Prothromb Time International Ratio 1.0 (0.9-1.1) Activated Partial Thromboplast Time 25.0 SECONDS (21.0-31.0) Partial Thromboplastin Ratio 1.0 Anion Gap 8.0 mmol/L (3-11) Est Creatinine Clear Calc Drug Dose 35.9 ml/min Estimated GFR () 60.3 Estimated GFR (Non- 52.0 BUN/Creatinine Ratio 17.9 (10-20) Calcium Level 8.7 mg/dl (8.5-10.1) Magnesium Level 2.0 mg/dl (1.8-2.4) Total Bilirubin 0.3 mg/dl (0.2-1) Direct Bilirubin < 0.1 mg/dl (0-0.2) Aspartate Amino Transf (AST/SGOT) 27 U/L (15-37) Alanine Aminotransferase (ALT/SGPT) 31 U/L (12-78) Alkaline Phosphatase 70 U/L (45-117) Troponin I < 0.015 ng/ml (0-0.045) Total Protein 6.8 gm/dl (6.4-8.2) Albumin 3.4 gm/dl (3.4-5.0) Thyroid Stimulating Hormone (TSH) 2.550 uIu/ml (0.300-4.500) Laboratory results per my review. Medications Administered Medications (Trade) Dose Ordered Sig/Brennen Route Start Time Stop Time Status Last Admin Dose Admin Sodium Chloride 1,000 ml @ 999 mls/hr Q1H1M STAT IV 08/12/17 10:11 08/12/17 11:11 DC 08/12/17 10:51 999 MLS/HR ECG Per My Interpretation Indication: other (near-syncope) Rate (beats per minute): 63 Rhythm: atrial fibrillation Findings: other (Normal axis. Prolonged pauses. ) Change: Repeat ECG shows a normal sinus rhythm with a rate of 63 bpm. Normal axis. No PVCs seen. ED Course ED COURSE: Vital signs were reviewed and appeared normal. The patients medical record was reviewed The above diagnostic studies were performed and reviewed. ED treatments and interventions as stated above. 1005: The patient was evaluated in room A2. A complete history and physical examination was performed. 1011: Ordered Sodium Chloride 1000 ml @ 999 mls/hr IV. 1055: Upon reevaluation, the patient is resting comfortably. I discussed my findings with the patient and she understands and agrees with the treatment plan. Based on the patients age, coexisting illnesses, exam and lab findings the decision to treat as an inpatient was made. The patient remained stable while under my care. The patient will be evaluated for further management. Medical Decision Differential diagnosis includes etiologies such as benign positional vertigo, dehydration, hypovolemia, anemia, tumor, infection, hypoglycemia, electrolyte abnormalities, cardiac sources, intracerebral event, toxicologic, neurologic, as well as others were entertained. Patient is a 77-year-old female with a past medical history of A. fib and VT with ablation that presents the ER as a rapid response for dizziness and near syncope. She notes that she became dizzy and checked her pulse and could not find one. She almost passed out. She currently feels significantly better. On exam she is irregularly irregular. EKG shows A. fib with long pauses. CBC along with BMP, LFTs, bilirubin, troponin and TSH was unremarkable. Troponin was negative. INR was unremarkable. Chest x-ray was unremarkable. Discussed with cardiology who recommended observation. I did discuss with internal medicine as well. Patient did convert to normal sinus rhythm. I do favor that her near syncopal episode/dizziness was likely rhythm related. Patient was updated at bedside and admitted to internal medicine. Medication Reconcilliation Current Medication List: was personally reviewed by me Blood Pressure Screening Patient's blood pressure: Normal blood pressure Blood pressure disposition: Did not require urgent referral Consults Time Called: 1052 Consulting Physician: Dr. Moore - Cardiology Returned Call: [phone] I reviewed the patient's case with Dr. Moore. He recommends the patient be admitted to the hospital for cardiac work-up. Additional Consults: Time Called: 1054 Consulted Physician: Dr. Persaud - [facility] [place] Returned Call: [phone] Additional Comments: Dr. Persaud was made aware of the patient's case. The patient will be evaluated for further management. Impression Primary Impression: A-fib Additional Impressions: Near syncope Arrhythmia Scribe Attestation The scribe's documentation has been prepared under my direction and personally reviewed by me in its entirety. I confirm that the note above accurately reflects all work, treatment, procedures, and medical decision making performed by me. Departure Information Dispostion Being Evaluated By Hospitalist Referrals Ramon Ortiz M.D. (PCP) Patient Instructions My [facility] Problem Qualifiers Primary Impression: A-fib Atrial fibrillation type: unspecified Qualified Codes: I48.91 - Unspecified atrial fibrillation Additional Impressions: Arrhythmia Arrhythmia type: atrial fibrillation Atrial fibrillation type: unspecified Qualified Codes: I48.91 - Unspecified atrial fibrillation
[2017-08-12] MEDS: IPRATROPIUM BROMIDE NASAL SPRAY 0.06% 15ML SCH ×2 (15:05→21:35)
[2017-08-12] MEDS: PRIMIDONE 50 MG TAB PO SCH ×2 (16:08→21:37)
[2017-08-12] MEDS: PROPRANOLOL HCL 10 MG TAB PO SCH ×2 (16:09→21:36)
[2017-08-12] MEDS: PROPAFENONE HCL 150 MG TAB PO SCH ×2 (16:09→21:36)
[2017-08-13] VITALS (7 sets, daily range): BP systolic 153–199; BP diastolic 66–79; PULSE 66–71; TEMP 36.4–36.8; O2SAT 97–99
[2017-08-13] MEDS: HEPARIN SOD 5000 UNIT/0.5 ML CARP SQ SCH (06:00)
[2017-08-13] MEDS: PROPAFENONE HCL 150 MG TAB PO SCH ×3 (07:41→21:11)
[2017-08-13] MEDS: PRIMIDONE 50 MG TAB PO SCH ×3 (07:41→21:10)
[2017-08-13] MEDS: PROPRANOLOL HCL 10 MG TAB PO SCH ×3 (07:41→21:11)
[2017-08-13] MEDS: IPRATROPIUM BROMIDE NASAL SPRAY 0.06% 15ML SCH ×3 (07:42→21:12)
[2017-08-13] MEDS: PANTOprazole SOD 40 MG TAB PO SCH (07:43)
[2017-08-13] MEDS: ANASTROZOLE 1 MG TAB PO SCH (07:44)
[2017-08-13] MEDS ORDERED: NURSING VERBAL MED ORDER ONE (07:45)
[2017-08-13] MEDS ORDERED: ASPIRIN 81 MG ECTAB PO SCH (09:00)
[2017-08-13 09:21] LABS: HEMOGLOBIN 13.1 g/dL (12.0-16.0); MEAN CELL VOLUME 88.6 fL (80-100); MEAN CORPUSCULAR HEMOGLOBIN 30.5 pg (25-34); MEAN CORPUSCULAR HGB CONC 34.5 g/dl (32-36); PLATELET COUNT 261 K/uL (130-400); RED CELL DISTRIBUTION WIDTH CV 14.2 % (11.5-14.5); WHITE BLOOD COUNT 4.42 K/uL (4.8-10.8)
[2017-08-13 09:40] LABS: BLOOD UREA NITROGEN 13 mg/dl (7-18); CALCIUM 8.7 mg/dl (8.5-10.1); CARBON DIOXIDE 31 mmol/L (21-32); CREATININE 0.66 mg/dl (0.60-1.20); GLUCOSE 88 mg/dl (70-99); SODIUM 136 mmol/L (136-145)
--- NOTE | 2017-08-13 09:42 | Cardiology Consultation ---
Cardiology Consultation Date of Consultation: August 13, 2017. Requesting Physician: Dr. Persaud Reason for Consultation: Pre-syncope, AF Pt evaluation today including: conversation w/ patient, physical exam, lab review, review of studies, review of inpatient medication list History of Present Illness This is a very pleasant 77-year-old woman who has a history of hyperlipidemia and breast cancer as well as ventricular tachycardia with ablation at [facility] in the past (from office records this preceded 2009, but I do not have direct documentation of that procedure or when it was). She subsequently had atrial flutter and has been maintained on propafenone 150 mg 3 times daily. She does occasionally noticed a fluttering sensation but has not had presyncope or syncope in the past. Clinically her arrhythmia has been good control. 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 She describes not being unconscious but not being able to respond appropriately, she tells me that a pulse could not be obtained and a code purple was called and she was sent to the emergency room. In the emergency room she had a very irregular atrial fibrillation with long pauses, in the range of 2-3 seconds. Subsequently she quickly reverted to sinus rhythm. She recalls feeling poorly in the emergency room for some time, she felt better apparently coinciding with conversion back to sinus rhythm. She has never had these symptoms before. She has no exertional symptoms, she is quite active and notes no exertional chest pain, no shortness of breath, no orthopnea and no peripheral edema. Past Medical/Surgical History (1) V tach (2) Breast cancer (3) H/O cardiac radiofrequency ablation Family History Breast Cancer SISTER Heart Disease FATHER MOTHER Social History Smoking Status: Never Smoker History of Alcohol Use: No Review of Systems Constitutional: No fever, No weight loss, No weakness Respiratory: No cough, No wheezing, No shortness of breath, No dyspnea on exertion Cardiac: + see HPI, + problem reported (pre-syncope), No chest pain, No orthopnea, No PND, No edema, No palpitations Abdomen: No pain, No nausea, No vomiting, No diarrhea, No GI bleeding Female : No problem reported Neurologic: No paralysis, No weakness, No numbness/tingling, No balance problems Heme: No abnormal bleeding/bruising, No clotting problems Endo: No fatigue Skin: No problem reported All Other Systems: Reviewed and Negative Allergies Coded Allergies: Sulfa Drugs (Verified Allergy, Mild, rash, 08/12/17) Simvastatin (Unverified Adverse Reaction, Mild, HEADACHE, 08/12/17) Medications Current Inpatient Medications Medications (Trade) Dose Ordered Sig/Brennen Route Start Time Stop Time Status Last Admin Dose Admin Heparin Sodium (Porcine) (Heparin Sq 5000 Unit/0.5ml) 5,000 unit Q8 SQ 08/12/17 14:00 09/11/17 13:59 Acetaminophen (Tylenol Tab) 650 mg Q4H PRN PO 08/12/17 11:15 09/11/17 11:14 Al Hydrox/Mg Hydrox/Simethicone (Maalox Max Susp) 15 ml Q4H PRN PO 08/12/17 11:15 09/11/17 11:14 Magnesium Hydroxide (Milk Of Magnesia Susp) 30 ml Q12H PRN PO 08/12/17 11:15 09/11/17 11:14 Ondansetron HCl (Zofran Inj) 4 mg Q6H PRN IV 08/12/17 11:15 09/11/17 11:14 Morphine Sulfate (MoRPHine SULFATE INJ) 2 mg Q30M PRN IV 08/12/17 11:15 08/26/17 11:14 Polyethylene (Miralax Powder Packet) 17 gm DAILY PRN PO 08/12/17 11:15 09/11/17 11:14 Anastrozole (Arimidex Tab) 1 mg DAILY PO 08/13/17 09:00 09/12/17 08:59 08/13/17 07:44 1 MG Diphenhydramine HCl (Benadryl Cap) 25 mg HS PRN PO 08/12/17 11:15 09/11/17 11:14 Pravastatin Sodium (Pravachol Tab) 10 mg Q2D PO 08/14/17 21:00 09/13/17 20:59 Primidone (Mysoline Tab) 50 mg DAILY@0730,1530,2200 PO 08/12/17 15:30 09/11/17 15:29 08/13/17 07:41 50 MG Propafenone HCl (Rythmol Tab) 150 mg DAILY@0730,1530,2200 PO 08/12/17 15:30 09/11/17 15:29 08/13/17 07:41 150 MG Propranolol HCl (Inderal Tab) 10 mg DAILY@0730,1530,2200 PO 08/12/17 15:30 09/11/17 15:29 08/13/17 07:41 10 MG Miscellaneous Information (Order Awaiting Action) 1 ea QS N/A 08/12/17 16:00 09/11/17 15:59 Ipratropium [place] (Atrovent Nasal [place] 0.06%) 2 sprays TID NA 08/12/17 14:00 09/11/17 13:59 08/13/17 07:42 2 SPRAYS Miscellaneous Information (Order Awaiting Action) 1 ea QS N/A 08/12/17 16:00 09/11/17 15:59 Pantoprazole Sodium (Protonix Tab) 40 mg QAM PO 08/13/17 09:00 09/12/17 08:59 08/13/17 07:43 40 MG Aspirin (Ecotrin Tab) 81 mg Q24H PO 08/13/17 21:00 09/12/17 20:59 Physical Exam Vital Signs Past 12 Hours Date Time Temp Pulse Resp B/P (MAP) Pulse Ox O2 Delivery O2 Flow Rate FiO2 08/13/17 08:06 36.7 68 16 187/73 (111) 97 08/13/17 04:00 Room Air 08/13/17 04:00 36.4 68 16 157/79 (105) 99 Room Air 08/13/17 00:00 Room Air 08/12/17 23:45 36.7 65 18 156/78 (104) 98 Room Air Constitutional: General Apperance: heathly-appearing Level of Distress: NAD Psychiatric: Mental Status: active & alert Head: normocephalic Eyes: EOM: EOMI ENMT: normal ENT inspection, hearing grossly normal Neck: supple, no masses Lungs: Respiratory effort: no dyspnea, good air movement Auscultation: breath sounds normal, no wheezing Cardiovascular: Heart Auscultation: RRR, no murmurs, no rubs, no gallops Peripheral Pulses: Bruits: none appreciated Abdomen: Bowel Sounds: normal Inspection & Palpation: soft, no tenderness, guarding & rebound, no masses Musculoskeletal: normal strength (5/5 throughout) Extremities: no edema Neurologic: Cranial Nerves: grossly intact Sensation: grossly intact Data Laboratory Results: Last 24 Hours Test 08/12/17 09:35 08/12/17 17:21 08/13/17 08:59 White Blood Count 6.64 K/uL 4.42 K/uL Red Blood Count 4.21 M/uL 4.29 M/uL Hemoglobin 13.0 g/dL 13.1 g/dL Hematocrit 37.6 % 38.0 % Mean Corpuscular Volume 89.3 fL 88.6 fL Mean Corpuscular Hemoglobin 30.9 pg 30.5 pg Mean Corpuscular Hemoglobin Concent 34.6 g/dl 34.5 g/dl Platelet Count 288 K/uL 261 K/uL Mean Platelet Volume 9.7 fL 10.0 fL Neutrophils (%) (Auto) 70.2 % Lymphocytes (%) (Auto) 19.3 % Monocytes (%) (Auto) 8.1 % Eosinophils (%) (Auto) 1.7 % Basophils (%) (Auto) 0.5 % Neutrophils # (Auto) 4.67 K/uL Lymphocytes # (Auto) 1.28 K/uL Monocytes # (Auto) 0.54 K/uL Eosinophils # (Auto) 0.11 K/uL Basophils # (Auto) 0.03 K/uL RDW Standard Deviation 46.3 fL 46.0 fL RDW Coefficient of Variation 14.2 % 14.2 % Immature Granulocyte % (Auto) 0.2 % Immature Granulocyte # (Auto) 0.01 K/uL Prothrombin Time 10.6 SECONDS Prothromb Time International Ratio 1.0 Activated Partial Thromboplast Time 25.0 SECONDS Partial Thromboplastin Ratio 1.0 Sodium Level 134 mmol/L Potassium Level 4.3 mmol/L Chloride Level 101 mmol/L Carbon Dioxide Level 26 mmol/L Anion Gap 8.0 mmol/L Blood Urea Nitrogen 18 mg/dl Creatinine 1.03 mg/dl Est Creatinine Clear Calc Drug Dose 35.9 ml/min Estimated GFR () 60.3 Estimated GFR (Non- 52.0 BUN/Creatinine Ratio 17.9 Random Glucose 143 mg/dl Calcium Level 8.7 mg/dl Magnesium Level 2.0 mg/dl Total Bilirubin 0.3 mg/dl Direct Bilirubin < 0.1 mg/dl Aspartate Amino Transf (AST/SGOT) 27 U/L Alanine Aminotransferase (ALT/SGPT) 31 U/L Alkaline Phosphatase 70 U/L Troponin I < 0.015 ng/ml Total Protein 6.8 gm/dl Albumin 3.4 gm/dl Thyroid Stimulating Hormone (TSH) 2.550 uIu/ml Urine Color YELLOW Urine Appearance CLEAR Urine pH 6.5 Urine Specific [place] 1.017 Urine Protein NEG Urine Glucose (UA) NEG Urine Ketones NEG Urine Occult Blood NEG Urine Nitrite NEG Urine Bilirubin NEG Urine Urobilinogen NEG Urine Leukocyte Esterase LARGE Urine WBC (Auto) 10-30 /hpf Urine RBC (Auto) 0-4 /hpf Urine Hyaline Casts (Auto) 1-5 /lpf Urine Epithelial Cells (Auto) >30 /lpf Urine Bacteria (Auto) NEG Imaging: Chest x-ray on admission shows no significant abnormality EKG: Initial electrocardiogram from August 12, 2017 at 0934 shows atrial fibrillation with a very irregular rate averaging 63 bpm but with multiple 1.7 second pauses. A repeat electrocardiogram on August 12, 2017 at 10:38 AM shows sinus rhythm at 63 bpm with no significant abnormality. Telemetry reviewed: Initially atrial fibrillation with pauses, subsequently sinus rhythm with no significant arrhythmia Assessment & Plan 1. Presyncope: It is not clear what caused her presyncope, given her history of ventricular tachycardia it could be a tachyarrhythmia although that seems less likely since she has been very well controlled following ablation and on Rythmol therapy. She also has history of atrial flutter and that is a possibility. However her presentation the emergency room (when she was feeling poorly) shows atrial fibrillation with a highly variable heart rate. That quickly converted to sinus rhythm. I suspect the most likely cause of her symptoms was bradycardia but that cannot be proven. Options are to treat the arrhythmia that is the most likely (bradycardia) order to monitor her for recurrence. This was a significant event and I think it would be safer to implant a pacemaker. 2. History of ventricular tachycardia: She had ventricular tachycardia with ablation at [facility] (details unavailable at this time) but has had no known recurrence. It is possible that this event was due to ventricular arrhythmia, however she was feeling poorly in the emergency room although may have improved somewhat from her initial event and ventricular tachycardia was not seen. I think it is unlikely that this event was caused by ventricular tachycardia. The pacemaker would monitor for this, therefore she does have recurrent ventricular tachycardia it would be recorded. 3. History of atrial arrhythmias: She has a history of atrial flutter as well as no documentation of atrial fibrillation, to my knowledge we have not documented rapid atrial arrhythmias in the recent past. It is unlikely that atrial flutter would have been that rapidly conducted if atrial fibrillation was conducted quite slowly. We probably will want to maintain Rythmol therapy for her history of atrial arrhythmias, she will probably need anticoagulant therapy on a long-term basis although with pacemaker monitoring perhaps we could consider observation. We can make that decision after the pacemaker is implanted, I would not anticoagulate her now. Thank you for allowing me to participate in her care.
--- NOTE | 2017-08-13 12:17 | Hospitalist Progress Note ---
Hospitalist Progress Note Date of Service August 13, 2017. (Rosalind Santoyo ., AJC) Subjective Pt evaluation today including: conversation w/ patient, conversation w/ family ( at bedside), physical exam, chart review, lab review, review of inpatient medication list Pain: None PO Intake: Tolerating PO diet Voiding: no voiding problems Patient reports feeling well. She denies any further recurrence of near syncope , dizziness, or diaphoresis. She denies any palpitations, shortness of breath, or chest pain. She states that she feels in her normal state of health. The patient denies fevers, chills, sweats, chest pain, palpitations, claudication, cough, wheezing, shortness of breath, nausea, vomiting, abdominal pain, dysuria , hematuria, urinary retention, paralysis, weakness, numbness and tingling. Additional Comments: See HPI for pertinent positives and negatives. All other systems reviewed and negative. (Rosalind Santoyo ., PA-C) Objective Vital Signs Date Time Temp Pulse Resp B/P (MAP) Pulse Ox O2 Delivery O2 Flow Rate FiO2 08/13/17 08:06 36.7 68 16 187/73 (111) 97 08/13/17 08:00 Room Air 08/13/17 04:00 Room Air 08/13/17 04:00 36.4 68 16 157/79 (105) 99 Room Air 08/13/17 00:00 Room Air 08/12/17 23:45 36.7 65 18 156/78 (104) 98 Room Air 08/12/17 20:09 99 Room Air 08/12/17 19:13 36.5 67 18 127/71 (89) 95 Room Air 08/12/17 16:03 99 Room Air 08/12/17 15:07 36.7 64 18 153/77 (102) 99 08/12/17 12:10 36.5 74 18 171/69 (103) 96 Room Air (Rosalind Santoyo PA-C) Physical Exam Notes: General appearance: Well-developed, well-nourished, no apparent distress Head: Normocephalic, atraumatic Eyes: Normal inspection, PERRL, EOMI ENT: Normal ENT inspection, hearing grossly normal, pharynx normal Neck: Supple, no JVD, trachea midline Respiratory/Chest: Lungs clear to auscultation, normal breath sounds, no respiratory distress Cardiovascular: Regular rate & rhythm, no gallop, no murmur Abdomen/GI: Normal bowel sounds, non-tender, soft Extremities/Musculoskeletal: Normal inspection, no calf tenderness, no pedal edema Neurological/Psych: Alert, normal mood/affect, oriented x 3 Skin: Normal color, warm/dry, no rash (Rosalind Santoyo ., MELO-C) Laboratory Results Last 24 Hours Test 08/12/17 17:21 08/13/17 08:59 Urine Color YELLOW Urine Appearance CLEAR Urine pH 6.5 Urine Specific [place] 1.017 Urine Protein NEG Urine Glucose (UA) NEG Urine Ketones NEG Urine Occult Blood NEG Urine Nitrite NEG Urine Bilirubin NEG Urine Urobilinogen NEG Urine Leukocyte Esterase LARGE Urine WBC (Auto) 10-30 /hpf Urine RBC (Auto) 0-4 /hpf Urine Hyaline Casts (Auto) 1-5 /lpf Urine Epithelial Cells (Auto) >30 /lpf Urine Bacteria (Auto) NEG White Blood Count 4.42 K/uL Red Blood Count 4.29 M/uL Hemoglobin 13.1 g/dL Hematocrit 38.0 % Mean Corpuscular Volume 88.6 fL Mean Corpuscular Hemoglobin 30.5 pg Mean Corpuscular Hemoglobin Concent 34.5 g/dl RDW Standard Deviation 46.0 fL RDW Coefficient of Variation 14.2 % Platelet Count 261 K/uL Mean Platelet Volume 10.0 fL Sodium Level 136 mmol/L Potassium Level 4.0 mmol/L Chloride Level 102 mmol/L Carbon Dioxide Level 31 mmol/L Anion Gap 3.0 mmol/L Blood Urea Nitrogen 13 mg/dl Creatinine 0.66 mg/dl Est Creatinine Clear Calc Drug Dose 50.5 ml/min Estimated GFR () 98.1 Estimated GFR (Non- 84.6 BUN/Creatinine Ratio 19.6 Random Glucose 88 mg/dl Calcium Level 8.7 mg/dl Troponin I < 0.015 ng/ml (Rosalind Santoyo ., PA-C) Assessment and Plan 77 y/o female with a history of VT s/p ablation about 15 years ago, tremor, HLD , and breast cancer who presents with near syncope. 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 A code purple was called. She quickly became alert and has been asymptomatic since. Pt was initially in rate controlled a-fib with 2-3 second pauses, then converted shortly after into SR. HR as low as 49. Near syncope, h/o VT, h/o atrial arrhythmia--resolved -Admit to telemetry for observation. No acute events overnight. Pt in sinus rhythm with HR 60s-70s, no pauses on tele -Consult cardiology, appreciate recs: Recommend placing pacemaker as bradycardia was likely what caused the event. Pacemaker could also monitor for recurrence of VT. Due to history of atrial arrhythmias, would keep Rythmol dose. Hold anticoagulation for now, can decide if intermediate teacher is needed after pacemaker placed. -Echo pending -Repeat troponin negative -Continue ASA, Rythmol 150 mg PO TID -NPO after midnight for pacemaker tomorrow Tremor--stable -Continue Primidone 50 mg PO TID and Inderal 10 mg PO TID HLD--stable -Continue pravastatin 10 mg PO q2d Breast cancer--stable -Continue anastrozole 1 mg PO qd GERD -Continue PPI DVT prophylaxis -Heparin 5000 units SC q8h, hold tonight's dose for pacemaker placement Code Status -Level I, FULL RESUSCITATION STATUS (Rosalind Santoyo ., PA-C) Supervising Note Dr. Hinkle I performed a history and physical examination on the patient. I reviewed above note and agree with it. I discussed plan with APC and patient. During my face to face encounter with the patient, I answered all of the patient's questions. Patient requires pacemaker due to symptomatic bradycardia likely being cause of her syncope. will await pacemaker placement. holding anticoag for procedure. (Ceasar Hinkle M.D.)
--- NOTE | 2017-08-13 16:06 | ECHOCARDIOGRAM REPORT ---
*NOTICE TO RECEIVING LIBERTARIAN AGENCY This information is strictly Confidential and protected under [place] law. [place] law prohibits you from making any further disclosure of this information unless further disclosure is expressly permitted by the written consent of the person to whom it pertains or is authorized by law. A general authorization for the release of medical or other information is not sufficient for this purpose. Hospital accepts no responsibility if the information is made available to any other person, INCLUDING THE PATIENT. Interpretation Summary * Name: MARII RIDLEY Study Date: 08/13/2017 10:49 AM BP: 187/73 mmHg * Patient Location: [facility]\S\N286\S\1 HR: 68 * : 1940 (M/d/yyyy) Gender: Female Height: 60 in * Age: 77 yrs Ethnicity: CA Weight: 111 lb * Ordering Physician: Angel Santos * Referring Physician: Self, Referred * Performed By: Timothy Patel RCS * * Reason For Study: A-FIB * BSA: 1.5 m2 * -- Conclusions -- * Left ventricular systolic function is normal. * No regional wall motion abnormalities noted. * Ejection Fraction = 55-60%. * There is mild to moderate mitral regurgitation. * Diastolic dysfunction, Grade II (pseudonormalization pattern). Procedure Details * A complete two-dimensional transthoracic echocardiogram was performed (2D, M-mode, Doppler and color flow Doppler). Left Ventricle * The left ventricle is normal in size. * There is normal left ventricular wall thickness. * Left ventricular systolic function is normal. * Ejection Fraction = 55-60%. * No regional wall motion abnormalities noted. Right Ventricle * The right ventricle is grossly normal size. * The right ventricular systolic function is normal as assessed by tricuspid annular plane systolic excursion (TAPSE) (normal >1.5 cm). Atria * The left atrium is moderately dilated. * Borderline right atrial enlargement. * No ASD detected; PFO is not assessed. * The interatrial septum bows toward right atrium consistent with elevated left atrial pressure. Mitral Valve * The mitral valve anatomy is normal. * There is no mitral valve stenosis. * There is mild to moderate mitral regurgitation. Tricuspid Valve * The tricuspid valve is not well visualized, but is grossly normal. * There is no tricuspid stenosis. * There is moderate tricuspid regurgitation. * Right ventricular systolic pressure is elevated at 40-50mmHg. Aortic Valve * The aortic valve is normal in structure and function. * No hemodynamically significant valvular aortic stenosis. * There is no significant aortic regurgitation. Pulmonic Valve * The pulmonary valve is not well seen, but the Doppler examination is normal without significant regurgitation or stenosis. Great Vessels * The aortic root is normal size. * The pulmonary is not well visualized. Pericardium/Pleural * There is no pericardial effusion. Great Vessels * Normal inferior vena cava size and collapsability with sniff indicates a normal right atrial pressure of 3 mmHg Left Ventricular Diastolic Function * Diastolic dysfunction, Grade II (pseudonormalization pattern). MMode 2D Measurements and Calculations IVSd 0.97 cm IVSs 1.4 cm LVIDd 5.0 cm LVIDs 2.8 cm LVPWd 0.82 cm LVPWs 1.4 cm IVS/LVPW 1.2 FS 42.7 % EDV(Teich) 116.6 ml ESV(Teich) 30.8 ml EF(Teich) 73.6 % EDV(cubed) 122.7 ml ESV(cubed) 23.1 ml EF(cubed) 81.2 % % IVS thick 45.8 % % LVPW thick 69.7 % LV mass(C)d 155.4 grams LV mass(C)dI 106.9 grams/m\S\2 LV mass(C)s 131.7 grams LV mass(C)sI 90.6 grams/m\S\2 CO(Teich) 6.3 l/min CI(Teich) 4.3 l/min/m\S\2 SV(Teich) 85.8 ml SI(Teich) 59.0 ml/m\S\2 CO(cubed) 7.3 l/min CI(cubed) 5.0 l/min/m\S\2 SV(cubed) 99.6 ml SI(cubed) 68.6 ml/m\S\2 Ao root diam 3.6 cm Ao root area 10.1 cm\S\2 ACS 1.4 cm LA dimension 4.9 cm asc Aorta Diam 2.8 cm LA/Ao 1.4 LVAd ap4 19.0 cm\S\2 LVLd ap4 6.1 cm EDV(MOD-sp4) 50.1 ml LVAs ap4 11.5 cm\S\2 LVLs ap4 5.2 cm ESV(MOD-sp4) 22.7 ml EF(MOD-sp4) 54.7 % LVAd ap2 23.9 cm\S\2 LVLd ap2 7.0 cm EDV(MOD-sp2) 68.2 ml LVAs ap2 15.2 cm\S\2 LVLs ap2 6.1 cm ESV(MOD-sp2) 33.0 ml EF(MOD-sp2) 51.6 % CO(MOD-sp4) 2.0 l/min CI(MOD-sp4) 1.4 l/min/m\S\2 SV(MOD-sp4) 27.4 ml SI(MOD-sp4) 18.9 ml/m\S\2 CO(MOD-sp2) 2.6 l/min CI(MOD-sp2) 1.8 l/min/m\S\2 SV(MOD-sp2) 35.2 ml SI(MOD-sp2) 24.2 ml/m\S\2 Doppler Measurements and Calculations MV E max emily 140.0 cm/sec MV A max emily 76.4 cm/sec MV E/A 1.8 MV P1/2t max emily 145.9 cm/sec MV P1/2t 62.9 msec MVA(P1/2t) 3.5 cm\S\2 MV dec slope 679.4 cm/sec\S\2 MV dec time 0.15 sec Ao V2 max 107.5 cm/sec Ao max PG 4.6 mmHg Ao max PG (full) 2.1 mmHg LV V1 max PG 2.5 mmHg LV V1 max 79.8 cm/sec PA V2 max 74.9 cm/sec PA max PG 2.2 mmHg PI max emily 184.6 cm/sec PI max PG 13.7 mmHg PI dec slope 166.2 cm/sec\S\2 PI P1/2t 325.2 msec TR max emily 342.0 cm/sec
[2017-08-13] MEDS: ASPIRIN 81 MG ECTAB PO SCH (21:10)
[2017-08-14] VITALS (15 sets, daily range): BP systolic 109–186; BP diastolic 66–91; PULSE 64–79; TEMP 36.4–36.9; O2SAT 93–100
[2017-08-14 05:43] LABS: HEMATOCRIT 37.2 % (37-47); HEMOGLOBIN 12.7 g/dL (12.0-16.0); MEAN CELL VOLUME 88.4 fL (80-100); MEAN CORPUSCULAR HEMOGLOBIN 30.2 pg (25-34); MEAN CORPUSCULAR HGB CONC 34.1 g/dl (32-36); MEAN PLATELET VOLUME 9.7 fL (7.4-10.4); PLATELET COUNT 233 K/uL (130-400); RED CELL DISTRIBUTION WIDTH CV 13.9 % (11.5-14.5); RED CELL DISTRIBUTION WIDTH SD 45.4 fL (36.4-46.3); WHITE BLOOD COUNT 6.05 K/uL (4.8-10.8)
[2017-08-14] MEDS: CEFAZOLIN IV 1,000 MG in SYRINGE 0 ML IV SCH ×3 (06:00→20:58)
[2017-08-14] MEDS ORDERED: CEFAZOLIN IV 1,000 MG in SYRINGE 0 ML IV ONE (06:00)
[2017-08-14] MEDS ORDERED: CEFAZOLIN SOD 1000MG/7.5 ML IV PUSH IV SCH (06:00)
[2017-08-14 06:16] LABS: CALCIUM 8.5 mg/dl (8.5-10.1); CREATININE 0.7 mg/dl (0.60-1.20)
[2017-08-14] MEDS: PANTOprazole SOD 40 MG TAB PO SCH (07:31)
[2017-08-14] MEDS: PRIMIDONE 50 MG TAB PO SCH ×3 (07:33→21:53)
[2017-08-14] MEDS: PROPAFENONE HCL 150 MG TAB PO SCH ×3 (07:33→21:53)
[2017-08-14] MEDS: PROPRANOLOL HCL 10 MG TAB PO SCH ×3 (07:33→21:53)
[2017-08-14] MEDS: ANASTROZOLE 1 MG TAB PO SCH (07:34)
[2017-08-14] MEDS: IPRATROPIUM BROMIDE NASAL SPRAY 0.06% 15ML SCH ×3 (07:41→21:53)
[2017-08-14] MEDS ORDERED: LACTATED RINGER'S 1000ML 1,000 ML IV ONE (08:00)
[2017-08-14] MEDS ORDERED: BUPIVACAINE 0.5 % 5 MG/1 ML MPF 30ML VIAL ONE (12:59)
[2017-08-14] MEDS ORDERED: BACITRACIN 50000 UNIT VIAL ONE (12:59)
[2017-08-14] MEDS ORDERED: LIDOCAINE HCL 1% 20 ML VIAL ONE (12:59)
[2017-08-14] MEDS ORDERED: CEFAZOLIN SOD 1 GM VIAL ONE (13:13)
[2017-08-14] MEDS ORDERED: MIDAZOLAM HCL 1 MG/ML 2ML VIAL ONE ×2 (13:13→13:42)
[2017-08-14] MEDS ORDERED: FENTANYL CITRATE INJ 50 MCG/1 ML 2 ML VIAL ONE (13:13)
--- NOTE | 2017-08-14 13:31 | Pre Sedation Assessment ---
Pre Sedation Assessment General Date of Sedation: August 14, 2017. Vital Signs Past 12 Hours Date Time Temp Pulse Resp B/P (MAP) Pulse Ox O2 Delivery O2 Flow Rate FiO2 08/14/17 12:07 36.8 67 16 169/79 (109) 97 08/14/17 12:03 Room Air 08/14/17 08:00 Room Air 08/14/17 07:31 36.7 68 16 161/79 (106) 98 Room Air 69 169/91 (117) 08/14/17 06:15 165/71 (102) 08/14/17 04:00 36.6 68 16 173/78 (109) 100 Room Air 08/14/17 04:00 Room Air Review Cardiovascular: regular rate, rhythm Lungs: lungs clear Pre-Sedation Airway Assessment Smoking Status: Never Smoker Hx of Sleep Apnea: No Hx of difficult intubation: No Short Thick Neck: No Thyro-mental Distance: > 3 Finger Breadths Oral Cavity: WNL Mallampati Classification: Class III ASA Classification: Class III NPO Status Date of Last Intake of Fluids: August 14, 2017 Time of Last Intake of Fluids: 729 Date of Last Intake of Solids: August 13, 2017 Time of Last Intake of Solids: 2358 Procedure Planning Contraindications for Sedation: None Current Medications Reviewed: Yes Notes The planned sedation has been discussed with the patient. Informed Consent was obtained. I have identified the patient, determined the appropriateness of sedation and have assessed the patient immediately prior to the procedure. All medicine(s) and interventions are by my order.
--- NOTE | 2017-08-14 14:33 | Cardiology Procedure Brief Nt ---
Preliminary Cardiology Note Procedure Date August 14, 2017. Pre-Procedure Diagnosis Symptomatic bradycardia Post-Procedure Diagnosis Same Procedure(s) Performed Implantation of dual-chamber [employer]onic pacemaker Cooperative Education Director Teresa Facilities Coordinator(s) None Estimated Blood Loss 10 cc Medication(s) Versed, fentanyl Preliminary Findings Normally functioning dual-chamber permanent pacemaker Recommendations Keep wound dry and refrain from lifting left arm above the shoulder behind the neck Specimens None Complication(s) None Disposition PCU
--- NOTE | 2017-08-14 14:44 | [facility] Operative Report ---
Operative Report Date of Service August 14, 2017. Operative Report Procedure performed: Implantation of dual-chamber permanent pacemaker Staff factory assembler: Justino Moore MD Indication: Patient is a 69-year-old woman with a history of presyncope. This occurred in the hospital and she was noted shortly afterwards to have a severely slow heart rate. This was in the setting of atrial fibrillation. She has known history of ventricular tachycardia but had no documented tachyarrhythmias in many years. Based on her symptoms and the associated bradycardia she was felt to be a good candidate for permanent pacemaker due to symptomatic non reversible sinus node dysfunction. A dual-chamber device was selected as the patient is currently in sinus rhythm which to maintain AV synchrony Procedure in detail: The patient was informed of the risks benefits and alternatives to the intended procedure and she wished to proceed. She was taken to the electrophysiology suite in a fasting state. A preoperative antibiotic had been administered. The patient was monitored electrocardiographically throughout today's procedure and conscious sedation was administered per protocol. The left upper pectoral area is prepped and draped in usual sterile fashion. This area was anesthetized using subcutaneous menstruation of a xylocaine solution. An incision was made at this site and carried down to the prepectoralis fascia using sharp dissection. Electrocautery was also employed for dissection as well as for hemostasis. A device pocket was fashioned tissues above the pectoralis muscle. Subsequent to this maneuver the left axillary vein was accessed using modified Seldinger technique. Sheaths were placed over guidewires at this site and used to facilitate passage of the pacing leads to the respective chambers under fluoroscopic guidance. This included right atrial and right ventricular leads. Adequate sensing and threshold parameters were obtained prior to Active fixation of the leads to the endocardial surface. The proximal portion leads were then sutured the prepectoral fascia using nonabsorbable suture. The device pocket was irrigated with antibiotic solution. The leads were then attached to the device. The device and leads were then placed in the pocket and pocket was closed in 3 layers of absorbable suture. Steri-Strips and sterile dressing were applied. The device was tested noninvasively prior to conclusion the procedure. The patient tolerated procedure well there no immediate complications. Equipment used: New pulse generator: Director Smb Sales [employer]. Model number:[id number] serial number [id number] Right atrial lead: Director Smb [employer]. Model number: [id number] serial number [id number] Right ventricular lead: Director Smb [employer]. Model number: 5076 serial number [id number] Measured data: Right atrial lead: P-waves measured 1.4 millivolts pacing threshold was 1.25 volts at 0.4 milliseconds with a pacing impedance of 817 Ohms Right ventricular lead: R-waves measured 6.3 millivolts pacing threshold was 0.75 volts at 0.4 milliseconds with a pacing impedance of 703 Ohms Impression: Successful implantation of dual-chamber permanent pacemaker I attest to the content of the Intraoperative Record and any orders documented therein. Any exceptions are noted below.
[2017-08-14] MEDS ORDERED: OXYCODONE HCL IR 5 MG TAB (IMMEDIATE RELEASE) PO PRN (14:45)
--- NOTE | 2017-08-14 14:58 | Hospitalist Progress Note ---
Hospitalist Progress Note Date of Service August 14, 2017. (Rosalind Santoyo ., PAFarrahC) Subjective Pt evaluation today including: conversation w/ patient, conversation w/ family ( and daughter at bedside), physical exam, chart review, lab review, conversation w/ statistical consultant (spoke with Dr. Moore), review of inpatient medication list Pain: None PO Intake: NPO Voiding: no voiding problems Examined patient prior to pacemaker placement. She reports feeling well and in her usual state of health. She denies any dizziness, diaphoresis, chest pain, shortness of breath. The patient denies fevers, chills, sweats, chest pain, palpitations, claudication, cough, wheezing, shortness of breath, nausea, vomiting, abdominal pain, dysuria, hematuria, urinary retention, paralysis, weakness, numbness and tingling. Additional Comments: See HPI for pertinent positives and negatives. All other systems reviewed and negative. (Rosalind Santoyo ., PA-C) Objective Vital Signs Date Time Temp Pulse Resp B/P (MAP) Pulse Ox O2 Delivery O2 Flow Rate FiO2 08/14/17 14:31 72 15 171/85 (113) 96 Room Air 08/14/17 14:28 65 16 148/80 (102) 95 Room Air 08/14/17 14:23 63 16 158/77 (104) 95 Room Air 60 08/14/17 12:07 36.8 67 16 169/79 (109) 97 08/14/17 12:03 Room Air 08/14/17 08:00 Room Air 08/14/17 07:31 36.7 68 16 161/79 (106) 98 Room Air 69 169/91 (117) 08/14/17 06:15 165/71 (102) 08/14/17 04:00 36.6 68 16 173/78 (109) 100 Room Air 08/14/17 04:00 Room Air 08/14/17 00:00 Room Air 08/13/17 23:44 36.6 66 18 153/66 (95) 99 Room Air 08/13/17 20:04 98 Room Air 08/13/17 19:56 36.8 71 20 167/77 (107) 99 Room Air 08/13/17 16:00 98 Room Air 08/13/17 15:42 36.4 70 16 199/75 (116) 98 (Rosalind Santoyo PA-C) Physical Exam Notes: General appearance: Well-developed, well-nourished, no apparent distress Head: Normocephalic, atraumatic Eyes: Normal inspection, PERRL, EOMI ENT: Normal ENT inspection, hearing grossly normal, pharynx normal Neck: Supple, no JVD, trachea midline Respiratory/Chest: Lungs clear to auscultation, normal breath sounds, no respiratory distress Cardiovascular: Regular rate & rhythm, no gallop, no murmur Abdomen/GI: Normal bowel sounds, non-tender, soft Extremities/Musculoskeletal: Normal inspection, no calf tenderness, no pedal edema Neurological/Psych: Alert, normal mood/affect, oriented x 3 Skin: Normal color, warm/dry, no rash (Rosalind Santoyo PA-C) Laboratory Results Last 24 Hours Test 08/14/17 05:30 White Blood Count 6.05 K/uL Red Blood Count 4.21 M/uL Hemoglobin 12.7 g/dL Hematocrit 37.2 % Mean Corpuscular Volume 88.4 fL Mean Corpuscular Hemoglobin 30.2 pg Mean Corpuscular Hemoglobin Concent 34.1 g/dl RDW Standard Deviation 45.4 fL RDW Coefficient of Variation 13.9 % Platelet Count 233 K/uL Mean Platelet Volume 9.7 fL Sodium Level 138 mmol/L Potassium Level 4.0 mmol/L Chloride Level 103 mmol/L Carbon Dioxide Level 31 mmol/L Anion Gap 3.0 mmol/L Blood Urea Nitrogen 18 mg/dl Creatinine 0.70 mg/dl Est Creatinine Clear Calc Drug Dose 47.6 ml/min Estimated GFR () 96.2 Estimated GFR (Non- 83.0 BUN/Creatinine Ratio 25.2 Random Glucose 87 mg/dl Calcium Level 8.5 mg/dl (Rosalind Santoyo PA-C) Assessment and Plan 77 y/o female with a history of VT s/p ablation about 15 years ago, tremor, HLD , and breast cancer who presents with near syncope. 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 A code purple was called. She quickly became alert and has been asymptomatic since. Pt was initially in rate controlled a-fib with 2-3 second pauses, then converted shortly after into SR. HR as low as 49. Near syncope, h/o VT, h/o atrial arrhythmia--resolved -Admit to telemetry for observation. No acute events overnight. Pt in sinus rhythm with HR 60s-70s, no pauses on tele -Consult cardiology, appreciate recs: Pacemaker placed today. Spoke to Dr. Moore, will monitor patient overnight and can likely go tomorrow. -Echo shows EF 55-60%. No WMA. Mild to moderate mitral regurgitation. Grade II diastolic dysfunction. -Repeat troponin negative -Continue ASA, Rythmol 150 mg PO TID -Pacemaker placed today, will monitor overnight and likely discharge tomorrow Tremor--stable -Continue Primidone 50 mg PO TID and Inderal 10 mg PO TID HLD--stable -Continue pravastatin 10 mg PO q2d Breast cancer--stable -Continue anastrozole 1 mg PO qd GERD -Continue PPI DVT prophylaxis -Heparin 5000 units SC q8h Code Status -Level I, FULL RESUSCITATION STATUS (Rosalind Santoyo, PA-C) Supervising Note Dr. Hinkle I performed a history and physical examination on the patient. I reviewed above note and agree with it. I discussed plan with APC and patient. During my face to face encounter with the patient, I answered all of the patient's questions. Pacemaker was placed today. No complications. No new complaints today. Likely discharge in AM. (Ceasar Hinkle M.D.)
[2017-08-14] MEDS: ASPIRIN 81 MG ECTAB PO SCH (20:58)
[2017-08-14] MEDS ORDERED: CEFAZOLIN IV 1,000 MG in DEXTROSE 5% 50ML 50 ML IV SCH (21:00)
[2017-08-14] MEDS ORDERED: PRAVASTATIN SOD 10 MG TAB PO SCH (21:00)
[2017-08-15 03:55] VITALS: BP 176/77; PULSE 70; TEMP 37.1; O2SAT 98
[2017-08-15] MEDS: CEFAZOLIN IV 1,000 MG in SYRINGE 0 ML IV SCH (04:50)
--- NOTE | 2017-08-15 06:27 | DIAGNOSTIC IMAGING REPORT ---
CHEST 2 VIEWS ROUTINE CLINICAL HISTORY: EXACT TIME ORDERED Evaluate for pneumothorax and lead placement COMPARISON STUDY: 08/12/2017 FINDINGS: Placement of a permanent bipolar cardiac pacemaker. Leads in good position. No evidence pneumothorax. Lungs are clear. IMPRESSION: Permanent bipolar cardiac pacemaker in good position. No evidence of pneumothorax. The above report was generated using voice recognition software. It may contain grammatical, syntax or spelling errors. Electronically signed by: Harshal Metzger M.D. 08/15/2017 6:25 AM Dictated Date/Time: 08/15/2017 6:25 AM
[2017-08-15 06:47] VITALS: BP 170/69; PULSE 76; TEMP 36.9; O2SAT 94
[2017-08-15 06:54] LABS: HEMATOCRIT 37.7 % (37-47); HEMOGLOBIN 12.9 g/dL (12.0-16.0); MEAN CELL VOLUME 88.7 fL (80-100); MEAN CORPUSCULAR HEMOGLOBIN 30.4 pg (25-34); MEAN CORPUSCULAR HGB CONC 34.2 g/dl (32-36); MEAN PLATELET VOLUME 9.7 fL (7.4-10.4); PLATELET COUNT 233 K/uL (130-400); RED CELL DISTRIBUTION WIDTH CV 14.1 % (11.5-14.5); RED CELL DISTRIBUTION WIDTH SD 45.7 fL (36.4-46.3); WHITE BLOOD COUNT 6.84 K/uL (4.8-10.8)
[2017-08-15 07:39] LABS: CALCIUM 8.2 mg/dl (8.5-10.1); CREATININE 0.77 mg/dl (0.60-1.20); POTASSIUM 3.8 mmol/L (3.5-5.1)
[2017-08-15] MEDS: PROPRANOLOL HCL 10 MG TAB PO SCH (07:56)
[2017-08-15] MEDS: PROPAFENONE HCL 150 MG TAB PO SCH (07:56)
[2017-08-15] MEDS: PRIMIDONE 50 MG TAB PO SCH (07:56)
[2017-08-15] MEDS: PANTOprazole SOD 40 MG TAB PO SCH (07:56)
[2017-08-15] MEDS: ANASTROZOLE 1 MG TAB PO SCH (08:00)
[2017-08-15] MEDS: IPRATROPIUM BROMIDE NASAL SPRAY 0.06% 15ML SCH (08:00)
--- NOTE | 2017-08-15 10:31 | Cardiology Follow-Up ---
Subjective Date of Service: August 15, 2017. Pt evaluation today including: conversation w/ patient, physical exam, chart review, lab review, review of studies, review of inpatient medication list History of Present Illness The patient is feeling well. Minimal pain at the implant site. Ambulatory on her own. Social History Smoking Status: Never Smoker History of Alcohol Use: No Review of Systems Respiratory: No cough, No wheezing, No shortness of breath, No dyspnea on exertion Cardiac: + see HPI, + problem reported (pre-syncope), No chest pain, No orthopnea, No PND, No edema, No palpitations Objective Vital Signs Past 12 Hours Date Time Temp Pulse Resp B/P (MAP) Pulse Ox O2 Delivery O2 Flow Rate FiO2 08/15/17 06:47 36.9 76 18 170/69 (102) 94 08/15/17 04:00 Room Air 08/15/17 03:55 37.1 70 19 176/77 (110) 98 Room Air 08/14/17 23:59 Room Air 08/14/17 23:20 36.9 79 18 159/78 (105) 98 Room Air Last Recorded Weight-Kilograms: 51.300 Physical Exam Constitutional: General Apperance: heathly-appearing Level of Distress: NAD Lungs: Respiratory effort: no dyspnea, good air movement Auscultation: breath sounds normal, no wheezing Cardiovascular: Heart Auscultation: RRR, no murmurs, no rubs, no gallops Peripheral Pulses: Bruits: none appreciated Extremities: no edema WOund without hematoma. Minimal ecchymosis. Data Laboratory Results: Last 24 Hours Test 08/15/17 06:31 White Blood Count 6.84 K/uL Red Blood Count 4.25 M/uL Hemoglobin 12.9 g/dL Hematocrit 37.7 % Mean Corpuscular Volume 88.7 fL Mean Corpuscular Hemoglobin 30.4 pg Mean Corpuscular Hemoglobin Concent 34.2 g/dl RDW Standard Deviation 45.7 fL RDW Coefficient of Variation 14.1 % Platelet Count 233 K/uL Mean Platelet Volume 9.7 fL Sodium Level 136 mmol/L Potassium Level 3.8 mmol/L Chloride Level 103 mmol/L Carbon Dioxide Level 28 mmol/L Anion Gap 5.0 mmol/L Blood Urea Nitrogen 15 mg/dl Creatinine 0.77 mg/dl Est Creatinine Clear Calc Drug Dose 43.3 ml/min Estimated GFR () 85.7 Estimated GFR (Non- 74.0 BUN/Creatinine Ratio 20.0 Random Glucose 96 mg/dl Calcium Level 8.2 mg/dl Imaging: CXR demonstrates good lead position. No PTX EKG:NSR Telemetry reviewed: NSR I performed a device interrogation. Sub-optimal bipolar sensing on the A-lead. Switched to unipolar. Normal thresholds. Assessment and Plan 1. Symptomatic bradycardia: S/P pacemaker. No complication. Stable for D/C. Will need to keep the incision dry for one week. F/U in our clinic for nurse visit/wound check next week. No lifting left arm above shoulder or behind neck for 6 weeks. 2. Ventricular tachycardia: NO documented recurrence. WIll monitor through her pacemaker. 3. Atrial fibrillation: NO clinical recurrence. Given her risk factors she should be started on anticoagulation. Warfarin could be started immediately. NOAC should not be started for another 48 hours.
[2017-08-15 11:38] VITALS: BP 146/52; PULSE 75; TEMP 36.9; O2SAT 99
[2017-08-15 12:03] VITALS: O2SAT 99
[2017-08-15] MEDS ORDERED: APIX1TAB3 PO (13:13)
--- NOTE | 2017-08-15 13:29 | Discharge Instructions ---
Discharge Instructions Date of Service August 15, 2017. Admission Reason for Admission: Arrhythmia, Near Syncope Discharge Discharge Diagnosis / Problem: Near syncope due to symptomatic bradycardia Discharge Goals Goal(s): Decrease discomfort, Diagnostic testing, Therapeutic intervention Activity Recommendations Activity Limitations: resume your previous activity . Instructions / Follow-Up Instructions / Follow-Up You were admitted to the hospital after having a near syncopal episode. This was thought to be caused by an arrhythmia due to your past medical history. Upon initial evaluation in the emergency room, you were found to be in atrial fibrillation (irregular rhythm) with 2-3 second pauses. You then converted back to a regular sinus rhythm shortly after. You were evaluated by cardiology who believes your symptoms were likely caused by bradycardia, or a slow heart rate. A pacemaker was placed to prevent future episodes of bradycardia and to monitor for arrhythmias. Your heart was monitored throughout your stay, and this did not show any recurrence of ventricular tachycardia, which is an arrhythmia you had in the past. It also did not show any further episodes of atrial fibrillation or pauses. Since you were even just temporarily in atrial fibrillation, it was recommended that you start anticoagulation (blood thinners ) to help reduce your stroke risk. You have been doing well following your procedure and are now medically stable for discharge. Medications: *Please take Eliquis (apixaban) 5 mg twice a day. This is your blood thinner. DO NOT START THIS MEDICATION UNTIL FRIDAY. *Continue your home medications as prescribed. Follow up: *You have been scheduled to follow up with your primary care provider early next week. *You have also been scheduled to follow up with the cardiology office next week to check on your surgical incision. They can then schedule you for further follow up appointments after that. Please see cardiology recommendations below. Please seek medical attention if you experience fevers, chills, sweats, dizziness/lightheadedness, loss of consciousness, chest pain, shortness of breath, nausea, vomiting, numbness or tingling. Current Hospital Diet Patient's current hospital diet: Regular Diet Discharge Diet Recommended Diet: AHA Diet (Heart Healthy) Pending Studies Studies pending at discharge: no Medical Emergencies . Who to Call and When: Medical Emergencies: If at any time you feel your situation is an emergency, please call 911 immediately. . Non-Emergent Contact Non-Emergency issues call your: Primary Care Provider, Auto Parts Manager Call Non-Emergent contact if: you have a fever, your pain is not controlled, your pain is worsening, your pain is unusual for you, your pain is concerning you, wound has increased drainage, wound has increased redness, wound has increased pain, you have any medication questions . Past History Medical & Surgical History: (1) Near syncope (2) Arrhythmia . "Provider Documentation" section prepared by Rosalind Santoyo. . Tracing Lathe Set Up Operator Recommendations Tracing Lathe Set Up Operator Recommendations: Cardiology recommendations: Keep the incision dry for one week. Follow up in the cardiology clinic for nurse visit/wound check next week. No lifting left arm above shoulder or behind neck for 6 weeks.
--- NOTE | 2017-08-15 13:31 | Discharge Summary ---
Discharge Summary Date of Service August 15, 2017. Discharge Summary Admission Date: August 14, 2017 at 10:31 Discharge Date: August 15, 2017 Discharge Disposition: Home Principal Diagnosis: Near syncope, symptomatic bradycardia Problems/Secondary Diagnoses: H/o VT s/p ablation about 15 years ago, tremor, HLD, breast cancer Immunizations: Have You Had Influenza Vaccine: Yes Influenza Vaccine Date: Dec 17, 2006 History of Tetanus Vaccine?: Unknown History of Pneumococcal: Unknown Pneumococcal Date: August 17, 2007 History of Hepatitis B Vaccine: Unknown Procedures: Echocardiogram: Interpretation Summary * Name: MARII RIDLEY Study Date: 08/13/2017 10:49 AM BP: 187/73 mmHg * Patient Location: [facility]\S\[id number]\S\1 HR: 68 * : 1940 (M/d/yyyy) Gender: Female Height: 60 in * Age: 77 yrs Ethnicity: CT Weight: 111 lb * Ordering Physician: Angel Santos * Referring Physician: Self, Referred * Performed By: Timothy Patel RCS * * Reason For Study: A-FIB * BSA: 1.5 m2 * -- Conclusions -- * Left ventricular systolic function is normal. * No regional wall motion abnormalities noted. * Ejection Fraction = 55-60%. * There is mild to moderate mitral regurgitation. * Diastolic dysfunction, Grade II (pseudonormalization pattern). Procedure Details * A complete two-dimensional transthoracic echocardiogram was performed (2D, M- mode, Doppler and color flow Doppler). Left Ventricle * The left ventricle is normal in size. * There is normal left ventricular wall thickness. * Left ventricular systolic function is normal. * Ejection Fraction = 55-60%. * No regional wall motion abnormalities noted. Right Ventricle * The right ventricle is grossly normal size. * The right ventricular systolic function is normal as assessed by tricuspid annular plane systolic excursion (TAPSE) (normal >1.5 cm). Atria * The left atrium is moderately dilated. * Borderline right atrial enlargement. * No ASD detected; PFO is not assessed. * The interatrial septum bows toward right atrium consistent with elevated left atrial pressure. Mitral Valve * The mitral valve anatomy is normal. * There is no mitral valve stenosis. * There is mild to moderate mitral regurgitation. Tricuspid Valve * The tricuspid valve is not well visualized, but is grossly normal. * There is no tricuspid stenosis. * There is moderate tricuspid regurgitation. * Right ventricular systolic pressure is elevated at 40-50mmHg. Aortic Valve * The aortic valve is normal in structure and function. * No hemodynamically significant valvular aortic stenosis. * There is no significant aortic regurgitation. Pulmonic Valve * The pulmonary valve is not well seen, but the Doppler examination is normal without significant regurgitation or stenosis. Great Vessels * The aortic root is normal size. * The pulmonary is not well visualized. Pericardium/Pleural * There is no pericardial effusion. Great Vessels * Normal inferior vena cava size and collapsability with sniff indicates a normal right atrial pressure of 3 mmHg Left Ventricular Diastolic Function * Diastolic dysfunction, Grade II (pseudonormalization pattern). Pacemaker Procedure: Procedure Date August 14, 2017. Pre-Procedure Diagnosis Symptomatic bradycardia Post-Procedure Diagnosis Same Procedure(s) Performed Implantation of dual-chamber [employer] pacemaker Pie Baker Teresa Director Strategic Planning(s) None Estimated Blood Loss 10 cc Medication(s) Versed, fentanyl Preliminary Findings Normally functioning dual-chamber permanent pacemaker Recommendations Keep wound dry and refrain from lifting left arm above the shoulder behind the neck Specimens None Complication(s) None Disposition PCU Consultations: Cardiology Medication Reconciliation New Medications: Apixaban (Eliquis) 5 Mg Tab 5 MG PO BID for 30 Days, #60 TAB Continued Medications: Anastrozole (Anastrozole) 1 Mg Tab 1 MG PO DAILY Aspirin (Aspirin Ec) 81 Mg Tab 81 MG PO DAILY Bkjtvieegu-Ytyasmzflscft-Sdsxd (Butalbital/APAP/Caffeine 50-300-40 mg) 1 Cap Cap 1-2 CAP PO q4-6hprn Diphenhydramine Hcl (Benadryl) 25 Mg Cap 25 MG PO HS PRN for Sleep, CAP Ipratropium [place] (Nasal) (Ipratropium [place]) 0.06 % Spr 2 SPRAYS NA TID Linaclotide (Linzess) 145 Mcg Cap 145 MCG PO QAM Multivitamin (Multivitamin) Tab 1 TAB PO QAM, 0 Refills Omeprazole (Prilosec) 20 Mg Cap 20 MG PO QAM, CAP Pravastatin Sod (Pravastatin Sodium) 10 Mg Tab 10 MG PO Q2D Primidone (Mysoline) 50 Mg Tab 50 MG PO TID Propafenone HCl (Propafenone HCl) 150 Mg Tab 150 MG PO TID Propranolol Hcl (Inderal) 10 Mg Tab 10 MG PO TID, TAB Discharge Exam The patient reports feeling well. She denies any chest pain currently. She states that last night she had some pain under her left axilla, but this is now resolved. She denies any dizziness, shortness of breath, diaphoresis, palpitations, and weakness. She states she is in her normal state of health. The patient denies fevers, chills, sweats, chest pain, palpitations, claudication, cough, wheezing, shortness of breath, nausea, vomiting, abdominal pain, dysuria, hematuria, urinary retention, paralysis, weakness, numbness and tingling. Constitutional: No fever, No chills, No sweats Eyes: No worsening of vision, No eye pain, No diplopia ENT: No hearing loss, No nasal symptoms, No trouble swallowing Respiratory: No cough, No wheezing, No shortness of breath Cardiovascular: No chest pain, No claudication, No palpitations Abdomen: No pain, No nausea, No vomiting Musculoskeletal: No joint pain, No muscle pain, No swelling Genitourinary - Female: No dysuria, No urinary retention, No hematuria Neurologic: No paralysis, No weakness, No numbness/tingling Integumentary: No rash, No itch, No color change General appearance: Well-developed, well-nourished, no apparent distress Head: Normocephalic, atraumatic Eyes: Normal inspection, PERRL, EOMI ENT: Normal ENT inspection, hearing grossly normal, pharynx normal Neck: Supple, no JVD, trachea midline Respiratory/Chest: +Pacemaker incision over left chest c/d/i. Lungs clear to auscultation, normal breath sounds, no respiratory distress Cardiovascular: Regular rate & rhythm, no gallop, no murmur Abdomen/GI: Normal bowel sounds, non-tender, soft Extremities/Musculoskeletal: Normal inspection, no calf tenderness, no pedal edema Neurological/Psych: Alert, normal mood/affect, oriented x 3 Skin: Normal color, warm/dry, no rash Hospital Course 77 y/o female with a history of VT s/p ablation about 15 years ago, tremor, HLD , and breast cancer who presents with near syncope. 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 A code purple was called. She quickly became alert and has been asymptomatic since. Pt was initially in rate controlled a-fib with 2-3 second pauses, then converted shortly after into SR. HR as low as 49. Near syncope, symptomatic bradycardia, h/o VT, h/o atrial arrhythmia--resolved -Admit to telemetry. No acute events overnight. Pt in sinus rhythm with HR 70s -80s. Pt has not had any further recurrence of a-fib or pauses. Did not have any VT this stay -Consult cardiology, appreciate recs: Spoke with Dr. Moore. Stable for discharge. Should be anticoagulated given PAF. Can start warfarin today w/o bridging or start NOAC in 48 hours. -Echo shows EF 55-60%. No WMA. Mild to moderate mitral regurgitation. Grade II diastolic dysfunction. -Repeat troponin negative -Continue ASA, Rythmol 150 mg PO TID -Start Eliquis 5 mg PO BID in 48 hours (start Friday) -No lifting left arm above shoulder or behind neck for 6 weeks. Keep incision dry for 1 week Tremor--stable -Continue Primidone 50 mg PO TID and Inderal 10 mg PO TID HLD--stable -Continue pravastatin 10 mg PO q2d Breast cancer--stable -Continue anastrozole 1 mg PO qd GERD -Continue PPI DVT prophylaxis -Heparin 5000 units SC q8h Code Status -Level I, FULL RESUSCITATION STATUS Supervising Note Dr. Hinkle I performed a history and physical examination on the patient. I reviewed above note and agree with it. I discussed plan with APC and patient. During my face to face encounter with the patient, I answered all of the patient's questions. Patient will be discharged on Eliquis given paroxysmal a. fibrillation. Total Time Spent: Greater than 30 minutes This includes examination of the patient, discharge planning, medication reconciliation, and communication with other providers. Discharge Instructions Please refer to the electronic Patient Visit Report (Discharge Instructions) for additional information. Follow-Up PCP Cardiology Additional Copies To Ramon Ortiz M.D.
[2017-08-15 13:54] VITALS: BP 146/52; PULSE 75; TEMP 36.9; O2SAT 99
== END 2017-08-15 14:46 | disposition home or self-care (01) | DRG 243 ==
LOC: EDBD 09:33 → EDSEX 09:33 → C.EDA 09:34 → C.MED 11:12 → ENRESERV 11:26 → EDBEDREQ 11:38 → C.MED 23:39 → OBSVTOIN 08-14 10:31 → ENRESERV 08-14 13:44 → C.2T 08-14 14:42
PROVIDERS: ADMIT Internal Medicine; ATTEND Internal Medicine Sports Medicine
PROC: 02HK0JZ Insertion of Pacemaker Lead into Right Ventricle, Open Approach (ICD-10-PCS; principal; 2017-08-14 13:00)
PROC: 0JH606Z Insertion of Pacemaker, Dual Chamber into Chest Subcutaneous Tissue and Fascia, Open Approach (ICD-10-PCS; principal; 2017-08-14 13:00)
DX: I49.5 Sick sinus syndrome (principal); I48.92 Unspecified atrial flutter; R00.1 Bradycardia, unspecified; I48.91 Unspecified atrial fibrillation; R55 Syncope and collapse; E78.5 Hyperlipidemia, unspecified; R25.1 Tremor, unspecified; K21.9 Gastro-esophageal reflux disease without esophagitis; Z85.3 Personal history of malignant neoplasm of breast; Z88.2 Allergy status to sulfonamides; Z79.82 Long term (current) use of aspirin; Z80.3 Family history of malignant neoplasm of breast; Z82.49 Family history of ischemic heart disease and other diseases of the circulatory system

== ENCOUNTER 2022-09-17 08:24 | Inpatient (IN) ==
[2022-09-17] MEDS ORDERED: dexAMETHasone**PF** 10 MG/ML VIAL IV ONE (09:00)
[2022-09-17] MEDS ORDERED: ACETAMINOPHEN 1,000 MG/100 ML VIAL IV STA (09:00)
[2022-09-17] MEDS ORDERED: LIDOCAINE 5% 1 PATCH TD STA (09:03)
[2022-09-17] MEDS ORDERED: MoRPHine SULFATE 2 MG/ML CARP IV STA ×2 (09:03→12:49)
--- NOTE | 2022-09-17 09:19 | Emergency Department Note ---
Impression & Plan Atrial fibrillation with rapid ventricular response, Back pain, thoracic, Pleural effusion ED Provider Note NAME: MARII RIDLEY AGE: 82 SEX: F ARRIVES VIA: Walk-In INFORMANT: Patient ED PROVIDER(S): Keon Bray MD CHIEF COMPLAINT: Back pain, shortness of breath. PLAN: Disposition: Admit MEDICAL DECISION MAKING: The patient is a pleasant 82-year-old woman with a past medical history of combined systolic and diastolic heart failure, atrial fibrillation, hypertension, hyperlipidemia, chronic back pain, who presents to the emergency department via walk-in, coming by her for evaluation of worsening thoracic back pain over the past 24 hours in the setting of having a flare of her back pain for the past several weeks where she is following with the pain clinic and has outpatient MRI scheduled but has yet to happen. She reports she is taking acetaminophen with codeine but this does not help her symptoms. She denies any loss of bowel control or urinary retention. She is able to ambulate and denies weakness in her legs. She reports she began to feel short of breath as well over the past 24 hours and thinks it is her CHF. She does note that she feels better in terms of her breathing when she is flat. She reports she had a swollen left leg over the past couple of weeks but has been taking torsemide per her doctor's instructions and this resolved. She denies any fevers, cough, congestion, GI or symptoms otherwise. On arrival the patient is uncomfortable in no acute distress, afebrile with heart rate in the 130s-140s in atrial fibrillation and vital signs otherwise stable. She appears cachectic/frail. She appears euvolemic to dry. She has reproducible mid to lower thoracic tenderness without midline tenderness to palp ation or step-offs. She has normal strength bilateral lower extremities. Reflexes within normal limits. There is no clonus. EKG demonstrates atrial fibrillation without overt acute ischemia. Chest x-ray with increased in left pleural effusion, which is further characterized on CT imaging. CT of the abdomen pelvis demonstrates moderate left and small right pleural effusions with bibasilar consolidation is nonspecific. Question of mild cortical angulation of the anterior left fifth rib however the patient has no tenderness in this area. CT of the thoracic spine was negative for acute tho racic spine fracture with mostly mild multilevel disc space narrowing and spondylitic spurring with moderate to severe facet arthrosis. CT of the lumbar spine demonstrates grade 2 anterolisthesis on L4 and L5 that is unchanged. Otherwise no acute fractures or dislocations. WBC, H/H and platelets within normal limits. Chemistry without metabolic acidosis. Sodium 129 with glucose of 166 electrolytes otherwise unremarkable. LFTs with AST ALT mildly above normal at 42 and 59, respectively, nonspecific. High-sensitivity troponin 16.9, nonspecific. BNP 1200 in setting of the patient's known CHF though may likely reflect stretch from the patient's A-fib with RVR as the patient appears more euvolemic to dry. Patient was unsure if she took her metoprolol today and so given persistence of her A-fib with RVR she had received 5 mg of IV Lopressor x2 with improved rate control. Given the patient's moderate-sized pleural effusion the setting of her back pain they did agree with plan for admission. Case was discussed with Dr. Church, [facility] hospitalist, who will evaluate the patient for admission. Triage Nursing notes reviewed and agree them. Prior/outside medical records reviewed Vital Signs: reviewed Differential diagnosis: Musculoskeletal, disc herniation, fracture, metastatic disease, cord compression, discitis, sciatica, cauda equina, infection, aortic disease, renal colic, gastrointestinal, as well as other pathologies. ER treatment provided: See below. Diagnostics interpreted by me: ECG: atrial fibrillation with RVR, 128 bpm, no ectopy, no overt ST elevation or depression, QTc 446, QRS 78. Cardiac Monitoring: An order for continuous cardiac monitoring was placed and demonstrated atrial fibrillation, RVR, 120 bpm, no ectopy. Laboratory studies: See below Imaging studies: See below Consultation(s): Case was discussed with Dr. Church, [facility] hospitalist, who will evaluate the patient for admission. HPI: The patient is a pleasant 82-year-old woman with a past medical history of combined systolic and diastolic heart failure, atrial fibrillation, hypertension, hyperlipidemia, chronic back pain, who presents to the emergency department via walk-in, coming by her for evaluation of worsening thoracic back pain over the past 24 hours in the setting of having a flare of her back pain for the past several weeks where she is following with the pain clinic and has outpatient MRI scheduled but has yet to happen. She reports she is taking acetaminophen with codeine but this does not help her symptoms. She denies any loss of bowel control or urinary retention. She is able to ambulate and denies weakness in her legs. She reports she began to feel short of breath as well over the past 24 hours and thinks it is her CHF. She does note that she feels better in terms of her breathing when she is flat. She reports she had a swollen left leg over the past couple of weeks but has been taking torsemide per her doctor's instructions and this resolved. She denies any fevers, cough, congestion, GI or symptoms otherwise. ROS: See above HPI for pertinent positives & negatives. A total of 10 systems reviewed and were otherwise negative. VITALS:See Below PHYSICAL EXAMINATION: GENERAL: Awake, alert, uncomfortable-appearing, in no distress HENT: Normocephalic, atraumatic. Oropharynx dry mucous membranes. EYES: Normal conjunctiva. Sclera non-icteric. NECK: Supple. No nuchal rigidity. FROM. No JVD. RESPIRATORY: Clear to auscultation bilaterally. CARDIAC: Tachycardic rate, irregular rhythm. Extremities warm and well perfused. Pulses equal. ABDOMEN: Soft, non-distended. No tenderness to palpation. No rebound or guarding. No masses. RECTAL: Deferred. MUSCULOSKELETAL: Chest examination reveals no tenderness. Reproducible mid to lower thoracic tenderness without midline tenderness to palpation or step-offs. LOWER EXTREMITIES: Calves are equal size bilaterally and non-tender. No edema. No discoloration. NEURO: No focal sensory or motor deficits noted. Normal strength bilateral lower extremities. Reflexes within normal limits. No clonus. SKIN: No rash or jaundice noted. ED COURSE: Critical Care: I have personally spent greater than 35 minutes of critical care time in the direct management of this patient. This includes bedside care, interpretation of diagnostic studies, and testing, discussion with consultants, patient, and family members, and other required patient management activities. This 35 minutes is in excess of all separately billable procedures. Keon Bray MD Past Med/Surg History Medical History Actinic keratosis AF (paroxysmal atrial fibrillation) Arteriosclerosis of carotid artery Atrial flutter, paroxysmal Benign familial tremor Breast cancer, left (2017) 02/17/17 - invasive carcinoma Chest wall pain Chronic constipation Dyslipidemia Dyssynergic constipation Elevated blood pressure reading without diagnosis of hypertension Epidermal cyst GERD (gastroesophageal reflux disease) History of SCC (squamous cell carcinoma) of skin History of ventricular tachycardia HTN (hypertension) Hyperlipidemia Insomnia Irritable bowel syndrome Lichen sclerosus et atrophicus Osteopenia Osteoporosis Pacemaker Pessary maintenance Size 6 pessary Post-menopausal bleeding Postmenopausal atrophic vaginitis Prolapse of vaginal conklin Rash and nonspecific skin eruption 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 Thoracic back pain Thoracic facet syndrome Uterine prolapse Surgical History H/O cardiac radiofrequency ablation History of permanent cardiac pacemaker placement History of removal of ovarian cyst History of tonsillectomy and adenoidectomy Hx of cholecystectomy Status post ablation of ventricular arrhythmia Status post left breast lumpectomy 03/17/17 Family History Aunt Tremor Mother Cardiac disorder Father Cardiac disorder Family/Other Breast cancer Denies family history of Ovarian cancer Prostate cancer Myocardial infarction Colorectal cancer Social History Smoking Status: Never smoker Second Hand Exposure: No; Do You Dip or Chew Tobacco: No; Hx Alcohol Use: No Hx Substance Use: No Preferred Language: Grenadian Communication Ability: Effective Visual Impairment: Limited Hearing Ability: Hard of Hearing Telemarketing Sales Representative Required: No Beliefs That Will Affect Care: None marital status: Current Living Situation: Spouse current occupational status: retired How many Children do You have: 3 Other Information That Helps Us Care for You: No Feels Safe at Home: Yes Safety Concerns: Feels Safe At This Time Childhood Exposure to Second-Hand Smoke: Yes caffeine: Yes Dental Care, Regularly: Yes Physical Activity Frequency: Does not Exercise Seatbelt Use: always Sunscreen Use: Yes Assistive Devices: Cane Allergies Allergies Allergy/AdvReac Type Severity Reaction Status Date / Time Sulfa (Sulfonamide Allergy Mild rash Verified 09/13/22 11:04 Antibiotics) tramadol AdvReac Severe Hallucinati Verified 09/13/22 11:04 ng simvastatin AdvReac Mild HEADACHE Verified 09/13/22 11:04 lactose AdvReac Unknown Gastrointestinal Verified 09/17/22 20:03 Upset Home Meds Home Medications Medication Instructions Recorded Confirmed multivitamin (Multiple Vitamins 1 tab PO DAILY 10/01/18 09/17/22 tablet) polyethylene glycol 3350 17 17 g PO DAILY PRN Constipation 12/12/20 09/17/22 gram/dose oral powder (Miralax) lubiprostone 24 mcg capsule 24 mcg PO DAILY 08/21/22 09/17/22 (Amitiza) pravastatin 10 mg tablet 10 mg PO DAILY 08/21/22 09/17/22 latanoprost 0.005 % eye drops 1 drp ophthalmic (eye) DAILY PRN 09/17/22 09/17/22 Unknown omeprazole 20 mg capsule,delayed 20 mg PO DAILY PRN Acid Reflux 09/17/22 09/17/22 release Previous Rx's Medication Instructions Recorded apixaban 2.5 mg tablet 2.5 mg PO BID #180 tabs 01/17/22 ipratropium bromide 21 mcg (0.03 2 spray intranasal DAILY #30 mL 04/12/22 %) nasal spray metoprolol succinate 50 mg 100 mg PO BID #360 tabs 04/12/22 tablet,extended release 24 hr potassium chloride 20 mEq 20 meq PO DAILY #90 tabs 04/12/22 tablet,extended release primidone 50 mg tablet 50 mg PO TID #270 tabs 06/27/22 acetaminophen 300 mg-codeine 30 mg 1 tab PO BID PRN pain #60 tabs 09/04/22 tablet Results & Data (ED) Vital Signs Vital Signs - 24 hr 09/17/22 08:34 09/17/22 09:17 09/17/22 09:31 Temperature 36.6 C Temperature Source Temporal Artery Scan Pulse Rate 142 H 125 H Pulse Rate [Apical] 140 H Pulse Rhythm [Apical] Irregular Respiratory Rate 16 16 Blood Pressure 140/80 Blood Pressure [Left Arm] 133/113 H Blood Pressure Mean 100 Blood Pressure Mean [Left Arm] 119 Pulse Oximetry 98 98 Oxygen Delivery Method Room Air Sepsis Recent Fever Within 48 Hours No Sepsis New/Unexplained Change in Mental Status N/A Sepsis Action Taken by Nursing No Action Required 09/17/22 09:31 09/17/22 09:59 09/17/22 11:04 Temperature Temperature Source Pulse Rate 138 H Pulse Rate [Apical] 128 H Pulse Rhythm [Apical] Irregular Respiratory Rate 18 Blood Pressure 133/101 H Blood Pressure [Left Arm] 152/119 H Blood Pressure Mean Blood Pressure Mean [Left Arm] 130 Pulse Oximetry 99 99 Oxygen Delivery Method Room Air Room Air Sepsis Recent Fever Within 48 Hours Sepsis New/Unexplained Change in Mental Status Sepsis Action Taken by Nursing Laboratory Data Attestation: I reviewed the patient's lab results. 09/17/22 09:33 09/17/22 09:33 Lab Results 09/17/22 09/17/22 09/17/22 Range/Units 09:33 09:33 09:33 WBC 8.40 (4.8-10.8) K/ul RBC 4.62 (4.20-5.40) M/uL Hgb 14.1 (12.0-16.0) g/dl Hct 41.0 (37.0-47.0) % MCV 88.7 (80.0-100.0) fL MCH 30.5 (25.0-34.0) pg MCHC 34.4 (32.0-36.0) g/dL RDW Std Deviation 46.9 H (36.4-46.3) fL RDW Coeff of [place] 14.7 H (11.5-14.5) % Plt Count 242 (130-400) K/uL MPV 11.6 (9.4-12.4) fL Immature Gran % (Auto) 0.4 % Neut % (Auto) 86.2 % Lymph % (Auto) 8.9 % [place] % (Auto) 4.4 % Eos % (Auto) 0.1 % Baso % (Auto) 0.0 % Neut # (Auto) 7.24 H (1.40-6.50) K/uL Lymph # (Auto) 0.75 L (1.2-3.4) K/uL [place] # (Auto) 0.37 (0.11-0.59) K/uL Eos # (Auto) 0.01 (0-0.50) K/uL Baso # (Auto) 0.00 (0-0.2) K/uL Immature Gran # (Auto) 0.03 (0.01-0.20) K/uL Sodium 129 L (136-145) mmol/L Potassium 4.6 (3.5-5.1) mmol/L Chloride 96 L (98-107) mmol/L Carbon Dioxide 22 (21-32) mmol/L Anion Gap 11 (3-11) BUN 38 H (6-23) mg/dl Creatinine 0.81 (0.6-1.2) mg/dl Est Cr Clr Drug Dosing Not Reportable Est GFR ( Amer) 77.8 ml/min Est GFR (Non-Af Amer) 67.2 ml/min BUN/Creatinine Ratio 46.9 H (10-20) Glucose 166 H (70-99(Fasting)) mg/dl Calcium 9.2 (8.6-10.3) mg/dl Phosphorus 4.2 (2.5-4.9) mg/dl Magnesium 2.1 (1.7-2.4) mg/dl Total Bilirubin 0.9 (0.2-1.0) mg/dl AST 42 H (13-39) U/L ALT 59 H (7-52) U/L Alkaline Phosphatase 62 (34-104) U/L Total Creatine Kinase 53 (26-192) U/L Troponin I High Sens 16.9 H (0-14) pg/ml B-Natriuretic Peptide Cancelled Total Protein 6.5 (6.0-8.3) gm/dl Albumin 3.9 (3.4-5.0) gm/dl Globulin 2.6 (2.5-4.0) gm/dl Albumin/Globulin Ratio 1.5 (0.9-2) Lipase 30 (11-82) U/L SARS-CoV-2, RNA, NAAT (NEGATIVE) 09/17/22 09/17/22 Range/Units 09:35 11:07 WBC (4.8-10.8) K/ul RBC (4.20-5.40) M/uL Hgb (12.0-16.0) g/dl Hct (37.0-47.0) % MCV (80.0-100.0) fL MCH (25.0-34.0) pg MCHC (32.0-36.0) g/dL RDW Std Deviation (36.4-46.3) fL RDW Coeff of [place] (11.5-14.5) % Plt Count (130-400) K/uL MPV (9.4-12.4) fL Immature Gran % (Auto) % Neut % (Auto) % Lymph % (Auto) % [place] % (Auto) % Eos % (Auto) % Baso % (Auto) % Neut # (Auto) (1.40-6.50) K/uL Lymph # (Auto) (1.2-3.4) K/uL [place] # (Auto) (0.11-0.59) K/uL Eos # (Auto) (0-0.50) K/uL Baso # (Auto) (0-0.2) K/uL Immature Gran # (Auto) (0.01-0.20) K/uL Sodium (136-145) mmol/L Potassium (3.5-5.1) mmol/L Chloride (98-107) mmol/L Carbon Dioxide (21-32) mmol/L Anion Gap (3-11) BUN (6-23) mg/dl Creatinine (0.6-1.2) mg/dl Est Cr Clr Drug Dosing Est GFR ( Amer) ml/min Est GFR (Non-Af Amer) ml/min BUN/Creatinine Ratio (10-20) Glucose (70-99(Fasting)) mg/dl Calcium (8.6-10.3) mg/dl Phosphorus (2.5-4.9) mg/dl Magnesium (1.7-2.4) mg/dl Total Bilirubin (0.2-1.0) mg/dl AST (13-39) U/L ALT (7-52) U/L Alkaline Phosphatase (34-104) U/L Total Creatine Kinase (26-192) U/L Troponin I High Sens (0-14) pg/ml B-Natriuretic Peptide 1280 H Total Protein (6.0-8.3) gm/dl Albumin (3.4-5.0) gm/dl Globulin (2.5-4.0) gm/dl Albumin/Globulin Ratio (0.9-2) Lipase (11-82) U/L SARS-CoV-2, RNA, NAAT NEGATIVE (NEGATIVE) Administered Medications Apixaban (Apixaban 2.5 Mg Tab) 2.5 mg PO BID ALISE Stop: 10/17/22 20:59 Last Admin: 09/17/22 21:08 Dose: 2.5 mg Documented By: TPB Furosemide (Furosemide 40 Mg/4 Ml Vial) 40 mg IV BID17 ALISE Stop: 10/17/22 17:24 Last Admin: 09/17/22 18:03 Dose: 40 mg Documented By: Amiodarone HCl/Dextrose (Nexterone / D5w) 360 mg in 200 mls @ 33.333 mls/hr IV ONE ONE Stop: 09/17/22 22:29 Last Admin: 09/17/22 16:44 Dose: 1 mg/min, 33.3 mls/hr Documented By: GREGG Co-signed By: LANCE Primidone (Primidone 50 Mg Tab) 50 mg PO TID ALISE Stop: 10/17/22 13:59 Last Admin: 09/17/22 15:07 Dose: 50 mg Documented By: GREGG Discontinued Medications Apixaban (Apixaban 2.5 Mg Tab) 2.5 mg PO ONCE ONE Stop: 09/17/22 13:14 Last Admin: 09/17/22 15:07 Dose: 2.5 mg Documented By: GREGG Dexamethasone Sodium Phosphate (DexamethasonePf 10 Mg/Ml Vial) 10 mg IV NOW ONE Stop: 09/17/22 09:01 Last Admin: 09/17/22 10:00 Dose: 10 mg Documented By: NATHANIEL Furosemide (Furosemide 40 Mg/4 Ml Vial) 40 mg IV ONE STA Stop: 09/17/22 12:25 Last Admin: 09/17/22 12:54 Dose: 40 mg Documented By: LAVON Acetaminophen (Ofirmev) 1,000 mg in 100 mls @ 400 mls/hr IV NOW STA Stop: 09/17/22 09:14 Last Infusion: 09/17/22 10:14 Dose: 0 mls/hr Documented By: Admin: 09/17/22 10:01 Dose: 400 mls/hr Documented By: NATHANIEL Sodium Chloride (Nss) 250 mls @ 999 mls/hr IV .Q16M ONE Stop: 09/17/22 10:04 Last Infusion: 09/17/22 11:05 Dose: 0 mls/hr Documented By: Admin: 09/17/22 10:14 Dose: 999 mls/hr Documented By: NATHANIEL Amiodarone HCl/Dextrose (Nexterone / D5w) 150 mg in 100 mls @ 600 mls/hr IV NOW STA Stop: 09/17/22 16:33 Last Infusion: 09/17/22 16:50 Dose: 0 mls/hr Documented By: GREGG Co-signed By: LANCE Admin: 09/17/22 16:36 Dose: 600 mls/hr Documented By: GREGG Co-signed By: LANCE Lidocaine (Lidocaine 5% 1 Patch) 1 patch TD NOW STA Stop: 09/17/22 09:04 Last Admin: 09/17/22 09:59 Dose: 1 patch Documented By: NATHANIEL Metoprolol Tartrate (Metoprolol Tartrate 1 Mg/Ml Vial) 5 mg IV NOW STA Stop: 09/17/22 09:50 Last Admin: 09/17/22 09:59 Dose: 5 mg Documented By: NATHANIEL Metoprolol Tartrate (Metoprolol Tartrate 1 Mg/Ml Vial) 5 mg IV NOW STA Stop: 09/17/22 12:12 Last Admin: 09/17/22 12:28 Dose: 5 mg Documented By: NATHANIEL Metoprolol Tartrate (Metoprolol Tartrate 1 Mg/Ml Vial) 5 mg IV NOW STA Stop: 09/17/22 14:05 Last Admin: 09/17/22 14:32 Dose: 5 mg Documented By: GREGG Morphine Sulfate (Morphine Sulfate 2 Mg/Ml Carp) 1 mg IV NOW STA Stop: 09/17/22 09:04 Last Admin: 09/17/22 10:00 Dose: 1 mg Documented By: NATHANIEL Morphine Sulfate (Morphine Sulfate 2 Mg/Ml Carp) 1 mg IV NOW STA Stop: 09/17/22 12:50 Last Admin: 09/17/22 13:08 Dose: 1 mg Documented By: NATHANIEL Morphine Sulfate (Morphine Sulfate 4 Mg/Ml 1 Ml Carp\Vial) Confirm Administered Dose 4 mg .ROUTE .STK-MED ONE Stop: 09/17/22 12:53 Last Admin: 09/17/22 12:54 Dose: Not Given Documented By: ARS Imaging Data Radiologist's Impression: Chest X-Ray 09/17/22 08:58 XR chest 1V portable CLINICAL HISTORY: Chest pain, nonspecific COMPARISON STUDY: Chest radiograph August 28, 2022. FINDINGS: A dual-lead subclavian pacemaker is in place. Cardiomegaly is unchanged. There is mild interstitial thickening. Moderate left and small right pleural effusions have increased. Associated left basilar opacity favors atelectasis. There is no pneumothorax. IMPRESSION: Cardiomegaly. Moderate left and small right pleural effusions with mild interstitial pulmonary edema. ACT 112: Negative or not required by law. Electronically signed by: Michi Mcclendon M.D. 09/17/2022 10:26 AM Abdomen/Pelvis CT 09/17/22 09:[address] WITHOUT CONTRAST CT DOSE: 695.54 mGy.cm HISTORY: Acute left flank pain left flank pain TECHNIQUE: Multiaxial CT images of the abdomen and pelvis were performed without contrast. A dose lowering technique was utilized adhering to the principles of ALARA. COMPARISON STUDY: CT thoracic and lumbar spine studies of same day, CT abdomen and pelvis 12/02/2019 FINDINGS: Marked cardiomegaly. Partially imaged patient leads. Dense mitral annular calcifications. Moderate left and small right pleural effusions with left greater than right bibasilar consolidation. Mild intralobular septal thickening. No pneumatosis or pneumoperitoneum. Anasarca. Diminutive spleen. Moderately atrophic pancreas. Cholecystectomy. Unremarkable adrenal glands. The liver is enlarged measuring up to 19 cm in length. No hydronephrosis. 6 no matter hypodensity of the posterior interpolar left kidney suggestive of a probable cyst. Additional probable cyst of the posterior interpolar right kidney, 10 mm. Unremarkable urinary bladder. Fibroid uterus. Atherosclerosis of the aorta without aneurysm. No lymphadenopathy identified. No bowel structure or bowel wall thickening. Colonic diverticulosis. Mild/moderate colonic fecal retention. No CT evidence of acute appendicitis. Degenerative changes of the spine, pelvis and hips. Mild lumbar levoscoliosis. No acute fracture identified. 1.1 cm anterolisthesis L4 on L5 with associated severe facet arthrosis. Transitional lumbosacral anatomy. Mild cortical angulation of the anterior left fifth rib. Suggested subtle chronic nondisplaced fracture of the left inferior pubic ramus. IMPRESSION: 1. No acute posttraumatic intra-abdominal or intrapelvic abnormality identified 2. Moderate left and small right pleural effusions with bibasilar consolidation suggestive of atelectasis. 3. Mild cortical angulation of the anterior left fifth rib. Correlate with point tenderness to exclude an acute nondisplaced fracture. 4. Additional findings as above. ACT 112: Negative or not required by law. The above report was generated using voice recognition software. It may contain grammatical, syntax or spelling errors. Electronically signed by: Evangelist Correa M.D. 09/17/2022 10:[address] 09/17/22 09:00 CT thoracic spine wo con HISTORY: 82 years-old Female acute on chronic back pain COMPARISON: Lumbar spine CT of same day, CT abdomen and pelvis 12/02/2019 TECHNIQUE: Multiple axial CT images of the thoracic spine were obtained without the use of IV contrast. A dose lowering technique was used consistent with the principals of ALARA. FINDINGS: Demineralized appearance of the bones. Mostly mild multilevel intervertebral disc space narrowing and spondylotic spurring with moderate to severe facet arthrosis. Otherwise grade 1 anterolisthesis involves several upper thoracic segments, likely secondary to chronic facet arthrosis. Mild mid thoracic dextroscoliosis. Limited evaluation of the central canal and neural foramina by CT technique. No high-grade central canal stenosis identified. Moderate left with small right pleural effusions. Bibasilar consolidation. Cardiomegaly with partially imaged pacer leads. No paravertebral edema. IMPRESSION: No acute thoracic spine fracture identified. ACT 112: Negative or not required by law. The above report was generated using voice recognition software. It may contain grammatical, syntax or spelling errors. Electronically signed by: Evangelist Correa M.D. 09/17/2022 10:33 AM Discharge Plan Visit Data Chief Complaint: Back Injury/Pain Stated Complaint: congestive heart failure, back pain ED Provider: Keon Bray Discharge Problem: Atrial fibrillation with rapid ventricular response, Back pain, thoracic, Pleural effusion Patient Disposition: Admitted As Inpatient Discharge Instructions Interventions: ED Discharge Assessment Last Done: 09/17/22 12:51
[2022-09-17] MEDS ORDERED: SODIUM CHLORIDE 0.9% 250 ML IV ONE (09:49)
[2022-09-17] MEDS ORDERED: METOPROLOL TARTRATE 1 MG/ML VIAL IV STA ×3 (09:49→14:04)
--- NOTE | 2022-09-17 10:19 | CT Scan Report ---
CT OF THE LUMBAR SPINE CLINICAL HISTORY: Acute on chronic lumbar pain. COMPARISON STUDY: Lumbar spine radiographs August 08, 2015. CT of the abdomen and pelvis November 25, 2019 . TECHNIQUE: Helical axial images of the lumbar spine were obtained. Sagittal and coronal reconstruct ions were viewed. Automated exposure control was utilized for the study. A dose lowering technique was utilized adhering to the principles of ALARA. FINDINGS: Please note that the CTs of the thoracic spine and abdomen and pelvis will be reported sepa rately. Dual-lead left subclavian pacer is in place. There is cardiomegaly. Bilateral pleural effusio ns, left larger than right, are better depicted on the thoracic spine CT. When numbering from above, the L4-L5 disc space is assigned to axial image 274 of 326. When utilizing this numbering scheme, L5 is sacralized. 1 cm anterolisthesis of L4 and L5 is unchanged since CT of December 02, 2019. This is du e to facet arthrosis. Alignment of the lumbar spine is otherwise anatomic. No lumbar spine fracture i s present. There are no suspicious osseous lesions. Sclerotic foci within the T12 vertebral body are unchanged. These are benign. The central canal and neural foramen are suboptimally assessed by CT myra hnique. There is moderate multilevel facet arthrosis. Severe disc space narrowing at L4-L5 is unchang ed. Sacroiliac joints are intact. IMPRESSION: 1. No acute lumbar spine fracture or subluxation. 2. No change in grade II anterolisthesis of L4 and L5 since CT of December 02, 2019. This is due to fac et arthrosis. Severe disc space narrowing at this level which is also unchanged. 3. Moderate multilevel degenerative changes within the lumbar spine. Suboptimal evaluation of the warner tral canal and neural foramen given CT technique. 4. Transitional vertebra at the lumbosacral junction. Please see above numbering scheme of the lumbar spine. ACT 112: Negative or not required by law. Electronically signed by: Michi Mcclendon M.D. 09/17/2022 10:16 AM
[2022-09-17 10:24] LABS: Eosinophils # (auto) 0.01 K/uL (0-0.50); Eosinophils % (auto) 0.1 %; Hemoglobin 14.1 g/dl (12.0-16.0); Immature Granulocytes # (auto) 0.03 K/uL (0.01-0.20); Immature Granulocytes % (auto) 0.4 %; Lymphocytes # (auto) 0.75 K/uL (1.2-3.4); Lymphocytes % (auto) 8.9 %; Mean Corpuscular Hemoglobin 30.5 pg (25.0-34.0); Mean Corpuscular Hgb Conc 34.4 g/dL (32.0-36.0); Mean Corpuscular Volume 88.7 fL (80.0-100.0); Mean Platelet Volume 11.6 fL (9.4-12.4); Monocytes # (auto) 0.37 K/uL (0.11-0.59); Monocytes % (auto) 4.4 %; Neutrophils # (auto) 7.24 K/uL (1.40-6.50); Neutrophils % (auto) 86.2 %; Platelet Count 242 K/uL (130-400); RDW Coefficient of Variation 14.7 % (11.5-14.5); RDW Standard Deviation 46.9 fL (36.4-46.3); Red Blood Count 4.62 M/uL (4.20-5.40)
--- NOTE | 2022-09-17 10:28 | XRay Report ---
XR chest 1V portable CLINICAL HISTORY: Chest pain, nonspecific COMPARISON STUDY: Chest radiograph August 28, 2022. FINDINGS: A dual-lead subclavian pacemaker is in place. Cardiomegaly is unchanged. There is mild inte rstitial thickening. Moderate left and small right pleural effusions have increased. Associated left basilar opacity favors atelectasis. There is no pneumothorax. IMPRESSION: Cardiomegaly. Moderate left and small right pleural effusions with mild interstitial pulm onary edema. ACT 112: Negative or not required by law. Electronically signed by: Michi Mcclendon M.D. 09/17/2022 10:26 AM
--- NOTE | 2022-09-17 10:29 | CT Scan Report ---
ABDOMEN AND PELVIS CT WITHOUT CONTRAST CT DOSE: 695.54 mGy.cm HISTORY: Acute left flank pain left flank pain TECHNIQUE: Multiaxial CT images of the abdomen and pelvis were performed without contrast. A dose lo wering technique was utilized adhering to the principles of ALARA. COMPARISON STUDY: CT thoracic and lumbar spine studies of same day, CT abdomen and pelvis 12/02/2019 FINDINGS: Marked cardiomegaly. Partially imaged patient leads. Dense mitral annular calcifications. M oderate left and small right pleural effusions with left greater than right bibasilar consolidation. Mild intralobular septal thickening. No pneumatosis or pneumoperitoneum. Anasarca. Diminutive spleen. Moderately atrophic pancreas. Cholecystectomy. Unremarkable adrenal glands. The liver is enlarged me asuring up to 19 cm in length. No hydronephrosis. 6 no matter hypodensity of the posterior interpolar left kidney suggestive of a pr obable cyst. Additional probable cyst of the posterior interpolar right kidney, 10 mm. Unremarkable u rinary bladder. Fibroid uterus. Atherosclerosis of the aorta without aneurysm. No lymphadenopathy cheng ntified. No bowel structure or bowel wall thickening. Colonic diverticulosis. Mild/moderate colonic fecal rete ntion. No CT evidence of acute appendicitis. Degenerative changes of the spine, pelvis and hips. Mild lumbar levoscoliosis. No acute fracture identified. 1.1 cm anterolisthesis L4 on L5 with associated severe facet arthrosis. Transitional lumbosacral anatomy. Mild cortical angulation of the anterior le ft fifth rib. Suggested subtle chronic nondisplaced fracture of the left inferior pubic ramus. IMPRESSION: 1. No acute posttraumatic intra-abdominal or intrapelvic abnormality identified 2. Moderate left and small right pleural effusions with bibasilar consolidation suggestive of atelect asis. 3. Mild cortical angulation of the anterior left fifth rib. Correlate with point tenderness to exclud e an acute nondisplaced fracture. 4. Additional findings as above. ACT 112: Negative or not required by law. The above report was generated using voice recognition software. It may contain grammatical, syntax o r spelling errors. Electronically signed by: Evangelist Correa M.D. 09/17/2022 10:27 AM
--- NOTE | 2022-09-17 10:34 | CT Scan Report ---
CT thoracic spine wo con HISTORY: 82 years-old Female acute on chronic back pain COMPARISON: Lumbar spine CT of same day, CT abdomen and pelvis 12/02/2019 TECHNIQUE: Multiple axial CT images of the thoracic spine were obtained without the use of IV contras t. A dose lowering technique was used consistent with the principals of RADHA. FINDINGS: Demineralized appearance of the bones. Mostly mild multilevel intervertebral disc space narrowing and spondylotic spurring with moderate to severe facet arthrosis. Otherwise grade 1 anterolisthesis invo lves several upper thoracic segments, likely secondary to chronic facet arthrosis. Mild mid thoracic dextroscoliosis. Limited evaluation of the central canal and neural foramina by CT technique. No high -grade central canal stenosis identified. Moderate left with small right pleural effusions. Bibasilar consolidation. Cardiomegaly with partiall y imaged pacer leads. No paravertebral edema. IMPRESSION: No acute thoracic spine fracture identified. ACT 112: Negative or not required by law. The above report was generated using voice recognition software. It may contain grammatical, syntax o r spelling errors. Electronically signed by: Evangelist Correa M.D. 09/17/2022 10:33 AM
[2022-09-17 10:42] LABS: Albumin Level 3.9 gm/dl (3.4-5.0); Anion Gap 11 (3-11); Bilirubin,Total 0.9 mg/dl (0.2-1.0); Calcium 9.2 mg/dl (8.6-10.3); Carbon Dioxide 22 mmol/L (21-32); Chloride 96 mmol/L (98-107); Magnesium 2.1 mg/dl (1.7-2.4); Potassium 4.6 mmol/L (3.5-5.1); Sodium 129 mmol/L (136-145)
[2022-09-17 10:48] LABS: Alanine Aminotransferase 59 U/L (7-52); Albumin Globulin Ratio 1.5 (0.9-2); Alkaline Phosphatase 62 U/L (34-104); Aspartate Aminotransferase 42 U/L (13-39); BUN Creatinine Ratio 46.9 (10-20); Blood Urea Nitrogen 38 mg/dl (6-23); Creatine Kinase 53 U/L (26-192); Est GFR (African American) 77.8 ml/min; Est GFR (Non-African American) 67.2 ml/min; Globulin 2.6 gm/dl (2.5-4.0); Glucose 166 mg/dl (70-99(Fasting)); Lipase 30 U/L (11-82); Phosphorus 4.2 mg/dl (2.5-4.9); Total Protein 6.5 gm/dl (6.0-8.3)
[2022-09-17 10:51] LABS: Troponin I High Sensitivity 16.9 pg/ml (0-14)
--- NOTE | 2022-09-17 12:06 | History & Physical Report ---
Date of Service September 17, 2022 Assessment & Plan (1) Atrial fibrillation with RVR: Plan: -Admit to the PCU on tele -Currently in afib RVR with HR in the 120's S/P 250 mL NSS and 2 doses of 5 mg IV lopressor in the ED -At this time it appears that her afib RVR is likely due to acute CHF exacerbation -The patient has not been using her prn Torsemide as her LE's have not been swollen, however, BNP is 1280 today with + JVD, BL pleural effusions with mild pulm edema -Electrolytes are stable, patient already on BID Eliquis for afib -Will give 40 mg IV lasix stat, followed by 40 mg IV BID for now -Continue BID PO metoprolol succinate -If patient remains persistently tachycardic will have to consider starting amiodarone or dig as she has a hx of CHF so cannot use calcium channel blockers -If no significant improvement after diuresis overnight would consult cardiology for assistance -BL SCD's and home Eliquis for DVT PPX -AM CBC, CMP, Mag, PT/INR (2) CHF exacerbation: Plan: -Acute on chronic -Unsure at this time if she has been in afib rvr frequently over the past month causing acute CHF or CHF exacerbated her chronic afib at this time -BNP significancy elevated at 1280, + JVD and BL pleural effusions -Will give 40 mg IV lasix now followed by 40 mg BID -Will obtain repeat TTE as her last was in 2019 -Monitor intake/output q6h and daily weights -2 gm Sodium restriction with 2L free water restriction -Monitor am renal function and electrolytes (3) Pleural effusion: Plan: -Patient noted to have moderate left and small right pleural effusions today -Patient is stable on RA -Likely due to acute CHF exacerbation -For now will monitor for improvement with IV diuresis -Would repeat CXR prior to discharge to ensure she is improving (4) Elevated LFTs: Plan: -AST at 42 with ALT of 59 -CT of the abd/pelvis shows hepatomegaly -Patient and confirm she is only taking 2-3 doses of her acetaminophen- codeine daily -Could be related to congestive hepatopathy from acute CHF -For now will trend LFTs tomorrow -Hold tylenol today, can restart tomorrow if LFT's are improving (5) Thoracic facet syndrome: Plan: -Patient with chronic thoracic back pain, follows with Pain management -Pain as been uncontrolled since last clinic visit on 09/13 S/P thoracic trigger point injections -CT of the thoracic and lumbar spine are without acute sings or trauma or lytic lesions, no red flag symptoms -Given 1gm IV tylenol and .5 mg IV morphine, and lidocaine patch in the ED -Will hold tylenol for now with elevated LFTs, continue lidocaine patch -Will give 1mg IV morphine now then continue q4h prn pain 5+, will also add heating pad -Can restart tylenol tomorrow if LFT's are improving -Pain management consult placed (6) Elevated troponin: Plan: -Initial high sen trop elevated at 16 -Patient is without chest pain/pressure -Likely due to demand from acute CHF and afib RVR -Will repeat another high sen trop STAT, continue to monitor on tele -Will FU on TTE ordered on admission (7) Hyponatremia: Plan: -Corrected sodium of 130 today -Likely a combination of poor oral intake over the past few days due to pain and acute CHF exacerbation -S/P 250 mL NSS in the ED -Giving 40 mg IV lasix now -Will order and FU on 5 pm sodium level to ensure she is improving with diuresis -For now will continue with 2gm Sodium restriction for CHF and 2L NSS free water restriction (8) Dyslipidemia: Plan: -Continue statin (9) GERD (gastroesophageal reflux disease): Plan: -Continue omeprazole (10) HTN (hypertension): Plan: -Stable -Continue metoprolol and IV diuresis (11) Constipation: Plan: -Continue miralax Plan The patient was discussed with Dr. Church at the time of the admission History of Present Illness Chief Complaint: Uncontrolled back pain Primary Care Provider: Ramon Ortiz MD Debra is an 82 year old female with a PMH significant for Paroxysmal Atrial Fibrillation, Paroxysmal Atrial Flutter s/p Prior Ablation, Paroxysmal Ventricular Tachycardia, Carotid Atherosclerosis, Dyslipidemia, Elevated Blood Pressure, Symptomatic Bradycardia s/p [employer] Gurley XT DR MRI Dual Chamber Pacemaker (August 2017), Chronic Combined Systolic and Diastolic CHF, and chronic back pain who presented to the [facility] ED on 09/17/22 with complaints of uncontrolled chronic back pain. In the ED the patient was noted to be tachycardic at 142, otherwise stable. Labs were significant for a corrected sodium of 130, ATS of 42, ALT of 59 BNP of 1280, initial high sen trop of 16, and covid 19 negative. Chest xray was read as "Cardiomegaly. Moderate left and small right pleural effusions with mild interstitial pulmonary edema". CT of the abd/pelvis wo con was read as "1. No acute posttraumatic intra-abdominal or int rapelvic abnormality identified m2. Moderate left and small right pleural effusions with bibasilar consolidation suggestive of atelectasis. 3. Mild cortical angulation of the anterior left fifth rib. Correlate with point tenderness to exclude an acute nondisplaced fracture. 4. Additional findings as above.". Ct of the lumbar spine was read as "1. No acute lumbar spine fracture or subluxation. 2. No change in grade II anterolisthesis of L4 and L5 since CT of December 02, 2019. This is due to facet arthrosis. Severe disc space narrowing at this level which is also unchanged. 3. Moderate multilevel degenerative changes within the lumbar spine. Suboptimal evaluation of the central canal and neural foramen given CT technique. 4. Transitional vertebra at the lumbosacral junction. Please see above numbering scheme of the lumbar spine.". Ct of the thoracic spine was read as "No acute thoracic spine fracture identified.". ECG showed afib with RVR in the 120's. Prior to admission the patient was given 250 mL NSS, 1gm IV tylenol, a lidocaine patch, 1mg IV morphine, and 2 doses of 5 mg IV metoprolol. At the time of the exam the patient was lying in bed, unable to find a comfortable position due to back pain, with her daughter and sitting bedside. She presented to the ED today due to her uncontrolled thoracic back pain, which she has been experiencing over the past year. She confirms that this is the same back pain she has been seeing pain management for and denies any changes in symptoms since her last appointment on 09/13/22. Her pain is in the mid back/thoracic spine with increased pain in the left thoracic paraspinal muscles. She denies any recent numbness/tingling or weakness in the extremities and as been able to ambulate without issue. She has been using acetaminophen-codeine at home with minimal relief of her symptoms. When asked heart palpitations, she states that she has been noticing them for the past month or so. She has noticed increased SOB over this time as well but denies chest pain or recent cough. She was taking prn 20 mg PO Torsemide for left LE swelling but was instructed to stop the torsemide when the swelling improved. Her swelling significantly i mproved so she stopped taking it approximately 3 weeks ago. She tries to limit her sodium and free water intake as recommended by Cardiology. She denies recent fever, chills, chest pain, cough, abd pain, nausea, vomiting, diarrhea, dysuria, hematuria, melena, LE swelling and recent trauma. Please refer to Dr. Church's attestation for any changes to the treatment plan Allergies Allergy/AdvReac Type Severity Reaction Status Date / Time Sulfa (Sulfonamide Allergy Mild rash Verified 09/13/22 11:04 Antibiotics) tramadol AdvReac Severe Hallucinati Verified 09/13/22 11:04 ng simvastatin AdvReac Mild HEADACHE Verified 09/13/22 11:04 Home Medications Medication Instructions Recorded Confirmed Type multivitamin (Multiple Vitamins 1 tab PO DAILY 10/01/18 09/17/22 History tablet) polyethylene glycol 3350 17 17 g PO DAILY PRN Constipation 12/12/20 09/17/22 History gram/dose oral powder (Miralax) apixaban 2.5 mg tablet 2.5 mg PO BID #180 tabs 01/17/22 09/17/22 Rx ipratropium bromide 21 mcg (0.03 2 spray intranasal DAILY #30 mL 04/12/22 09/17/22 Rx %) nasal spray metoprolol succinate 50 mg 100 mg PO BID #360 tabs 04/12/22 09/17/22 Rx tablet,extended release 24 hr potassium chloride 20 mEq 20 meq PO DAILY #90 tabs 04/12/22 09/17/22 Rx tablet,extended release primidone 50 mg tablet 50 mg PO TID #270 tabs 06/27/22 09/17/22 Rx lubiprostone 24 mcg capsule 24 mcg PO DAILY 08/21/22 09/17/22 History (Amitiza) pravastatin 10 mg tablet 10 mg PO DAILY 08/21/22 09/17/22 History acetaminophen 300 mg-codeine 30 mg 1 tab PO BID PRN pain #60 tabs 09/04/22 09/17/22 Rx tablet latanoprost 0.005 % eye drops 1 drp ophthalmic (eye) DAILY PRN 09/17/22 09/17/22 History Unknown omeprazole 20 mg capsule,delayed 20 mg PO DAILY PRN Acid Reflux 09/17/22 09/17/22 History release Past Med/Surg History Medical History Actinic keratosis AF (paroxysmal atrial fibrillation) Arteriosclerosis of carotid artery Atrial flutter, paroxysmal Benign familial tremor Breast cancer, left (2017) 02/17/17 - invasive carcinoma Chest wall pain Chronic constipation Dyslipidemia Dyssynergic constipation Elevated blood pressure reading without diagnosis of hypertension Epidermal cyst GERD (gastroesophageal reflux disease) History of SCC (squamous cell carcinoma) of skin History of ventricular tachycardia HTN (hypertension) Hyperlipidemia Insomnia Irritable bowel syndrome Lichen sclerosus et atrophicus Osteopenia Osteoporosis Pacemaker Pessary maintenance Size 6 pessary Post-menopausal bleeding Postmenopausal atrophic vaginitis Prolapse of vaginal conklin Rash and nonspecific skin eruption 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 Thoracic back pain Thoracic facet syndrome Uterine prolapse Surgical History H/O cardiac radiofrequency ablation History of permanent cardiac pacemaker placement History of removal of ovarian cyst History of tonsillectomy and adenoidectomy Hx of cholecystectomy Status post ablation of ventricular arrhythmia Status post left breast lumpectomy 03/17/17 Family History Aunt Tremor Mother Cardiac disorder Father Cardiac disorder Family/Other Breast cancer Denies family history of Ovarian cancer Prostate cancer Myocardial infarction Colorectal cancer Social History Smoking Status: Never smoker Second Hand Exposure: No; Do You Dip or Chew Tobacco: No; Hx Alcohol Use: No Hx Substance Use: No Preferred Language: Liberian Communication Ability: Effective Visual Impairment: Limited Hearing Ability: Hard of Hearing Kindergarten Tutor Required: No Beliefs That Will Affect Care: None marital status: Current Living Situation: Spouse current occupational status: retired How many Children do You have: 3 Other Information That Helps Us Care for You: No Feels Safe at Home: Yes Safety Concerns: Feels Safe At This Time Childhood Exposure to Second-Hand Smoke: Yes caffeine: Yes Dental Care, Regularly: Yes Physical Activity Frequency: Does not Exercise Seatbelt Use: always Sunscreen Use: Yes Assistive Devices: Cane Physical Exam Physical Exam: Physical Exam: General: In no acute distress but is uncomfortable due to chronic back pain, stated age, malnourished, chronically ill-appearing, + JVD HEENT: Normocephalic, atraumatic, no scleral icterus, pupils around round, symmetrical, and reactive to light, moist mucus membranes, trachea midline, no thyromegaly Chest/Pulm: No respiratory distress, symmetrical chest expansion, crackles noted in the right lower lung tay, decreased breath sounds in the left lower and mid lung tay, otherwise CTA Cardiac: irregular rate and rhythm, no murmurs noted Abdomen: Negative for ascites and bruising, normoactive bowel sounds, soft, non-tender to palpation throughout Musculoskeletal: Symmetrical and without signs of acute trauma, upper and lower extremities with full ROM, no atrophy, spasticity, or flaccidity, patient is tender to palpation over the mid thoracic vertebrae without crepitus or step- offs, tender to palpation on the BL thoracic paraspinal muscles Extremities: Radial, dorsalis pedis, and posterior tibial pulses are intact and symmetrical, no edema noted in the BL LE's Skin: Warm, dry, no rashes , lesions, or scars noted Neuro: Alert and oriented to person, place, month, year, and president, no fo kassandra defects, CN II-XII tested and intact, finger to nose test negative, no tremors noted Psych: No acute distress, calm and cooperative during the exam Results & Data Results & Data Vital Signs (Past 12 Hours) Vital Signs Temp Pulse Pulse Resp BP BP Pulse Ox 09/17/22 11:04 128 H 18 152/119 H 99 09/17/22 09:59 138 H 133/101 H 09/17/22 09:31 99 09/17/22 09:31 140 H 16 133/113 H 98 09/17/22 09:17 125 H 09/17/22 08:34 36.6 C 142 H 16 140/80 98 O2 Del Method 09/17/22 11:04 Room Air 09/17/22 09:59 09/17/22 09:31 Room Air 09/17/22 09:31 Room Air 09/17/22 09:17 09/17/22 08:34 Laboratory Results Abnormal lab results 0609/17/22 09/17/22 Range/Units 09:33 09:33 11:07 RDW Std Deviation 46.9 H (36.4-46.3) fL RDW Coeff of [place] 14.7 H (11.5-14.5) % Neut # (Auto) 7.24 H (1.40-6.50) K/uL Lymph # (Auto) 0.75 L (1.2-3.4) K/uL Sodium 129 L (136-145) mmol/L Chloride 96 L (98-107) mmol/L BUN 38 H (6-23) mg/dl BUN/Creatinine Ratio 46.9 H (10-20) Glucose 166 H (70-99(Fasting)) mg/dl AST 42 H (13-39) U/L ALT 59 H (7-52) U/L Troponin I High Sens 16.9 H (0-14) pg/ml B-Natriuretic Peptide 1280 H (0-100) pg/ml Diagnostic Findings Chest X-Ray 09/17/22 08:58 XR chest 1V portable CLINICAL HISTORY: Chest pain, nonspecific COMPARISON STUDY: Chest radiograph August 28, 2022. FINDINGS: A dual-lead subclavian pacemaker is in place. Cardiomegaly is unchanged. There is mild interstitial thickening. Moderate left and small right pleural effusions have increased. Associated left basilar opacity favors atelectasis. There is no pneumothorax. IMPRESSION: Cardiomegaly. Moderate left and small right pleural effusions with mild interstitial pulmonary edema. ACT 112: Negative or not required by law. Electronically signed by: Michi Mcclendon M.D. 09/17/2022 10:26 AM Abdomen/Pelvis CT 09/17/22 09:[address] WITHOUT CONTRAST CT DOSE: 695.54 mGy.cm HISTORY: Acute left flank pain left flank pain TECHNIQUE: Multiaxial CT images of the abdomen and pelvis were performed without contrast. A dose lowering technique was utilized adhering to the principles of ALARA. COMPARISON STUDY: CT thoracic and lumbar spine studies of same day, CT abdomen and pelvis 12/02/2019 FINDINGS: Marked cardiomegaly. Partially imaged patient leads. Dense mitral annular calcifications. Moderate left and small right pleural effusions with left greater than right bibasilar consolidation. Mild intralobular septal thickening. No pneumatosis or pneumoperitoneum. Anasarca. Diminutive spleen. Moderately atrophic pancreas. Cholecystectomy. Unremarkable adrenal glands. The liver is enlarged measuring up to 19 cm in length. No hydronephrosis. 6 no matter hypodensity of the posterior interpolar left kidney suggestive of a probable cyst. Additional probable cyst of the posterior interpolar right kidney, 10 mm. Unremarkable urinary bladder. Fibroid uterus. Atherosclerosis of the aorta without aneurysm. No lymphadenopathy identified. No bowel structure or bowel wall thickening. Colonic diverticulosis. Mild/moderate colonic fecal retention. No CT evidence of acute appendicitis. Degenerative changes of the spine, pelvis and hips. Mild lumbar levoscoliosis. No acute fracture identified. 1.1 cm anterolisthesis L4 on L5 with associated severe facet arthrosis. Transitional lumbosacral anatomy. Mild cortical angulation of the anterior left fifth rib. Suggested subtle chronic nondisplaced fracture of the left inferior pubic ramus. IMPRESSION: 1. No acute posttraumatic intra-abdominal or intrapelvic abnormality identified 2. Moderate left and small right pleural effusions with bibasilar consolidation suggestive of atelectasis. 3. Mild cortical angulation of the anterior left fifth rib. Correlate with point tenderness to exclude an acute nondisplaced fracture. 4. Additional findings as above. ACT 112: Negative or not required by law. The above report was generated using voice recognition software. It may contain grammatical, syntax or spelling errors. Electronically signed by: Evangelist Correa M.D. 09/17/2022 10:[address] 09/17/22 09:00 CT thoracic spine wo con HISTORY: 82 years-old Female acute on chronic back pain COMPARISON: Lumbar spine CT of same day, CT abdomen and pelvis 12/02/2019 TECHNIQUE: Multiple axial CT images of the thoracic spine were obtained without the use of IV contrast. A dose lowering technique was used consistent with the principals of ALARA. FINDINGS: Demineralized appearance of the bones. Mostly mild multilevel intervertebral disc space narrowing and spondylotic spurring with moderate to severe facet arthrosis. Otherwise grade 1 anterolisthesis involves several upper thoracic segments, likely secondary to chronic facet arthrosis. Mild mid thoracic dextroscoliosis. Limited evaluation of the central canal and neural foramina by CT technique. No high-grade central canal stenosis identified. Moderate left with small right pleural effusions. Bibasilar consolidation. Cardiomegaly with partially imaged pacer leads. No paravertebral edema. IMPRESSION: No acute thoracic spine fracture identified. ACT 112: Negative or not required by law. The above report was generated using voice recognition software. It may contain grammatical, syntax or spelling errors. Electronically signed by: Evangelist Correa M.D. 09/17/2022 10:[address] 09/17/22 09:02 CT OF THE LUMBAR SPINE CLINICAL HISTORY: Acute on chronic lumbar pain. COMPARISON STUDY: Lumbar spine radiographs August 08, 2015. CT of the abdomen and pelvis November 25, 2019. TECHNIQUE: Helical axial images of the lumbar spine were obtained. Sagittal and coronal reconstructions were viewed. Automated exposure control was utilized for the study. A dose lowering technique was utilized adhering to the principles of ALARA. FINDINGS: Please note that the CTs of the thoracic spine and abdomen and pelvis will be reported separately. Dual-lead left subclavian pacer is in place. There is cardiomegaly. Bilateral pleural effusions, left larger than right, are better depicted on the thoracic spine CT. When numbering from above, the L4-L5 disc space is assigned to axial image 274 of 326. When utilizing this numbering scheme, L5 is sacralized. 1 cm anterolisthesis of L4 and L5 is unchanged since CT of December 02, 2019. This is due to facet arthrosis. Alignment of the lumbar spine is otherwise anatomic. No lumbar spine fracture is present. There are no suspicious osseous lesions. Sclerotic foci within the T12 vertebral body are unchanged. These are benign. The central canal and neural foramen are suboptima lly assessed by CT technique. There is moderate multilevel facet arthrosis. Severe disc space narrowing at L4-L5 is unchanged. Sacroiliac joints are intact. IMPRESSION: 1. No acute lumbar spine fracture or subluxation. 2. No change in grade II anterolisthesis of L4 and L5 since CT of December 02, 2019. This is due to facet arthrosis. Severe disc space narrowing at this level which is also unchanged. 3. Moderate multilevel degenerative changes within the lumbar spine. Suboptimal evaluation of the central canal and neural foramen given CT technique. 4. Transitional vertebra at the lumbosacral junction. Please see above numbering scheme of the lumbar spine. ACT 112: Negative or not required by law. Electronically signed by: Michi Mcclendon M.D. 09/17/2022 10:16 AM ECG Additional Comments: Atrial fibrillation with rapid ventricular response Rightward axis Anterior infarct , age undetermined Abnormal ECG When compared with ECG of 14-AUG-2017 15:16, Previous ECG has undetermined rhythm, needs review Questionable change in QRS duration Code Status & VTE Plan Code Status Full code VTE Prophylaxis Plan VTE Prophylaxis will be ordered: Yes Supervising Physician Co-Signing Physician Notes Patient seen and examined, chart reviewed, case discussed with Armand Fink PA-C and agree with the assessment and plan as above except as otherwise noted Labs and images reviewed Debra is a 81-year-old female with a past medical history of chronic back pain with degenerative changes, A-fib on anticoagulation, heart failure with reduced EF and history of leg swelling not on daily diuretics, hypertension, hyperlipidemia who presented with easy fatigue, chronic back pain over the last month, and dyspnea. She is noted to be in A-fib RVR on admission. At bedside she reports that she has been very tired in the last month, her back pain is limiting to her, and she fatigues easily with any attempted ambulation. She reports she was on torsemide just until her prior leg swelling improved, and then stopped taking this. She has not taken this in the last 2 weeks. She denies salty food/dietary indiscretion. She denies chest pain/chest pressure at time of assessment. Denies syncope/presyncope. Denies bleeding. She thinks she took her morning metoprolol. She did not take her morning blood thinner. At bedside exam heart rate is irregular and tachycardic, lungs are with crackles in the bases, JVD with HJR is present, minimal/1+ ankle edema. Suspect A-fib is reactive to acute CHF/volume overload as evidenced by clinical exam, CXR, and elevated BNP. Agree with Lasix IV, trend ins and outs. Metoprolol 5 mg IV up to 3 doses for acute rate control greater than 130. If rate control not improving with IV metoprolol and fluid management can add adjunct amiodarone versus digoxin at that time. Do not use diltiazem in the setting of reduced EF. Agree with chronic back pain management as above, no neurologic deficits are noted and no acute fractures noted on CT agree with assessment and management above.On reassessment patient remains with A-fib RVR, amiodarone added for adjunct PG Care Time/CCT Total # of Minutes Spent Total Time Spent with Patient: Total time spent is greater than 50% in coordination of care (as documented) at patient's floor/unit and/or counseling patient: C[place] [address] INT INP/OBS CARE 3/75MIN Patient Type Established Medical Decision Making High Complexity Diagnoses Atrial fibrillation with RVR I48.91 CHF exacerbation I50.9 Pleural effusion J90 Elevated LFTs R79.89 Thoracic facet syndrome M47.894 Elevated troponin R77.8 Hyponatremia E87.1 Dyslipidemia E78.5 GERD (gastroesophageal reflux disease) K21.9 HTN (hypertension) I10 Hypertension type: essential hypertension Constipation K59.00 (10) HTN (hypertension) Hypertension type: essential hypertension Qualified Code(s): I10 - Essential (primary) hypertension
--- NOTE | 2022-09-17 12:10 | Electrocardiogram Report ---
Test Reason : Blood Pressure : / mmHG Vent. Rate : 128 BPM Atrial Rate : 000 BPM P-R Int : 000 ms QRS Dur : 078 ms QT Int : 306 ms P-R-T Axes : 000 101 -03 degrees QTc Int : 446 ms Atrial fibrillation with rapid ventricular response Rightward axis Anterior infarct , age undetermined Abnormal ECG When compared with ECG of 14-AUG-2017 15:16, Questionable change in QRS duration Confirmed by Justino Moore ([id number]) on 09/17/2022 12:10:09 PM Referred By: REFERRED SELF Confirmed By:Grover Moore
[2022-09-17] MEDS ORDERED: FUROSEMIDE 40 MG/4 ML VIAL IV STA (12:24)
[2022-09-17] MEDS ORDERED: MoRPHine SULFATE 4 MG/ML 1 ML CARP\\VIAL ONE (12:52)
[2022-09-17] MEDS ORDERED: APIXABAN 2.5 MG TAB PO ONE (13:13)
[2022-09-17 13:41] LABS: C Reactive Protein 0.61 mg/dl (0-0.5)
[2022-09-17 13:48] LABS: Troponin I High Sensitivity 16.7 pg/ml (0-14)
[2022-09-17] MEDS ORDERED: PANTOprazole 40 MG TAB PO PRN (13:56)
[2022-09-17] MEDS: PRIMIDONE 50 MG TAB PO SCH ×2 (15:07→22:13)
--- NOTE | 2022-09-17 15:58 | XCELERA ---
[id number] \\[id number]\[id number]
[2022-09-17] MEDS ORDERED: AMIODARONE IV BOLUS & DRIP IV STA (16:20)
[2022-09-17] MEDS ORDERED: STAT IV Infusion **Titration per Protocol STA (16:20)
[2022-09-17] MEDS ORDERED: 0.2 MICRON FILTER SET 1 EACH IV STA (16:20)
[2022-09-17] MEDS ORDERED: AMIODARONE / D5W 150 MG/100 ML BAG IV STA (16:24)
[2022-09-17] MEDS ORDERED: AMIODARONE / D5W 360 MG/200 ML BAG IV ONE (16:30)
[2022-09-17] MEDS: FUROSEMIDE 40 MG/4 ML VIAL IV SCH (18:03)
[2022-09-17] MEDS: APIXABAN 2.5 MG TAB PO SCH (21:08)
[2022-09-17] MEDS: METOPROLOL SUCC 50MG EXT REL TAB PO SCH (22:13)
[2022-09-17] MEDS: MoRPHine SULFATE 2 MG/ML CARP IV PRN (22:14)
[2022-09-17] MEDS: AMIODARONE / D5W 360 MG/200 ML BAG IV SCH (22:20)
[2022-09-18] MEDS: MoRPHine SULFATE 2 MG/ML CARP IV PRN ×4 (05:05→21:17)
[2022-09-18 07:27] LABS: Hematocrit (blood only) 40.6 % (37.0-47.0); Hemoglobin 14.2 g/dl (12.0-16.0); Immature Granulocytes # (auto) 0.03 K/uL (0.01-0.20); Immature Granulocytes % (auto) 0.4 %; Lymphocytes % (auto) 7.7 %; Mean Corpuscular Hemoglobin 30.3 pg (25.0-34.0); Mean Corpuscular Volume 86.8 fL (80.0-100.0); Mean Platelet Volume 11.4 fL (9.4-12.4); Monocytes # (auto) 0.61 K/uL (0.11-0.59); Monocytes % (auto) 7.9 %; Neutrophils # (auto) 6.52 K/uL (1.40-6.50); Platelet Count 238 K/uL (130-400); RDW Coefficient of Variation 14.4 % (11.5-14.5); RDW Standard Deviation 44.9 fL (36.4-46.3); Red Blood Count 4.68 M/uL (4.20-5.40); White Blood Count 7.76 K/ul (4.8-10.8)
[2022-09-18 07:47] LABS: Albumin Globulin Ratio 1.4 (0.9-2); Albumin Level 3.6 gm/dl (3.4-5.0); BUN Creatinine Ratio 47.2 (10-20); Bilirubin,Total 0.7 mg/dl (0.2-1.0); Calcium 8.6 mg/dl (8.6-10.3); Creatinine Clr Calc Pharmacy 38.5 ml/min; Est GFR (African American) 89.8 ml/min; Est GFR (Non-African American) 77.4 ml/min; Globulin 2.5 gm/dl (2.5-4.0); Potassium 3.6 mmol/L (3.5-5.1); Total Protein 6.1 gm/dl (6.0-8.3)
[2022-09-18 07:58] LABS: INR 1.2 (0.9-1.1); Prothrombin Time 13.1 Seconds (9.0-12.0)
[2022-09-18] MEDS: PANTOprazole 40 MG TAB PO SCH (07:59)
[2022-09-18] MEDS: PRIMIDONE 50 MG TAB PO SCH ×3 (07:59→20:28)
[2022-09-18] MEDS: FUROSEMIDE 40 MG/4 ML VIAL IV SCH ×2 (08:00→15:39)
[2022-09-18] MEDS: METOPROLOL SUCC 50MG EXT REL TAB PO SCH ×2 (08:00→20:28)
[2022-09-18] MEDS: POTASSIUM CHLORIDE CRTAB 20 MEQ TABCR PO SCH (08:04)
[2022-09-18] MEDS: PRAVASTATIN SOD 10 MG TAB PO SCH (08:36)
[2022-09-18] MEDS: APIXABAN 2.5 MG TAB PO SCH ×2 (08:36→20:28)
[2022-09-18] MEDS: AMIODARONE / D5W 360 MG/200 ML BAG IV SCH (08:59)
--- NOTE | 2022-09-18 12:22 | Pain Management Consultation ---
Date of Consultation September 18, 2022 Assessment & Plan (1) Thoracic facet syndrome: (2) Myofascial pain: Plan 1. Pain team has thus far offered multiple types of procedural interventions for the patient, with little to no relief for this particular problem. 2. As the patient awaits the thoracic spine MRI scheduled for next week, we will facilitate this by placing an order to have it done while an inpatient. * May consider future thoracic epidural steroid injection if the MRI dem onstrates findings that would warrant doing so. This would likely be performed as an outpatient at the pain clinic. 3. Agree with PT/OT. 4. Consideration could be given for starting an oral steroid taper, as well as muscle relaxer of baclofen vs. methocarbamol. * Will defer decision on these to primary team due to the patient's current cardiac condition. 5. Continue Tylenol #3. 6. We will follow-up after MRI is completed. History of Present Illness Reason for Consultation: thoracic back pain Attending Physician: Ceasar Hinkle History of Present Illness Patient is an 82-year-old female that is status post left T8, T9, T10 costovertebral joint injection that was performed on 08/28/2022 at the pain clinic. At her follow-up visit from the procedure, on 09/13/2022, she denied any pain relief from the procedure. She continued to experience pain along the left thoracic region. Pain was described as a deep aching, spasming sensation. Pain was aggravated with lifting, prolonged standing, and walking. She reported difficulty sleeping due to the pain. She denied any true radicular symptoms. Pain was rated 8/10 at all times. She takes Tylenol No. 3 typically twice daily with slight pain relief.Patient did have trigger point injections performed at her follow-up visit. A thoracic spine MRI was ordered to see if there is any further etiology or treatment options to offer her. This is scheduled to happen next week. Patient presented to the ED yesterday due to worsening thoracic back pain over the previous 24 hours. She stated she was having a flareup of her back pain for the past several weeks. The acetaminophen and Tylenol with codeine was reported to not be helping her symptoms at that time. She also reported starting to feel short of breath, and she related to her CHF. Patient underwent an EKG and was found to be in atrial fibrillation with RVR. She had a moderate size pleural effusion, and given her ongoing back pain, the patient was admitted. Today, she is reporting that she continues to have this thoracic back pain. She says that the TPI's given in the office were mildly helpful. She underwent a thoracic and lumbar spine CT scan, with no acute findings. There were also no lesions present. Case discussed with Dr. Kelly. Allergies Allergy/AdvReac Type Severity Reaction Status Date / Time Sulfa (Sulfonamide Allergy Mild rash Verified 09/13/22 11:04 Antibiotics) tramadol AdvReac Severe Hallucinati Verified 09/13/22 11:04 ng simvastatin AdvReac Mild HEADACHE Verified 09/13/22 11:04 lactose AdvReac Unknown Gastrointestinal Verified 09/17/22 20:03 Upset Home Medications Medication Instructions Recorded Confirmed Type multivitamin (Multiple Vitamins 1 tab PO DAILY 10/01/18 09/17/22 History tablet) polyethylene glycol 3350 17 17 g PO DAILY PRN Constipation 12/12/20 09/17/22 History gram/dose oral powder (Miralax) apixaban 2.5 mg tablet 2.5 mg PO BID #180 tabs 01/17/22 09/17/22 Rx ipratropium bromide 21 mcg (0.03 2 spray intranasal DAILY #30 mL 04/12/22 09/17/22 Rx %) nasal spray metoprolol succinate 50 mg 100 mg PO BID #360 tabs 04/12/22 09/17/22 Rx tablet,extended release 24 hr potassium chloride 20 mEq 20 meq PO DAILY #90 tabs 04/12/22 09/17/22 Rx tablet,extended release primidone 50 mg tablet 50 mg PO TID #270 tabs 06/27/22 09/17/22 Rx lubiprostone 24 mcg capsule 24 mcg PO DAILY 08/21/22 09/17/22 History (Amitiza) pravastatin 10 mg tablet 10 mg PO DAILY 08/21/22 09/17/22 History acetaminophen 300 mg-codeine 30 mg 1 tab PO BID PRN pain #60 tabs 09/04/22 09/17/22 Rx tablet latanoprost 0.005 % eye drops 1 drp ophthalmic (eye) DAILY PRN 09/17/22 09/17/22 History Unknown omeprazole 20 mg capsule,delayed 20 mg PO DAILY PRN Acid Reflux 09/17/22 09/17/22 History release Patient History Medical History Actinic keratosis AF (paroxysmal atrial fibrillation) Arteriosclerosis of carotid artery Atrial flutter, paroxysmal Benign familial tremor Breast cancer, left (2017) 02/17/17 - invasive carcinoma Chest wall pain Chronic constipation Dyslipidemia Dyssynergic constipation Elevated blood pressure reading without diagnosis of hypertension Epidermal cyst GERD (gastroesophageal reflux disease) History of SCC (squamous cell carcinoma) of skin History of ventricular tachycardia HTN (hypertension) Hyperlipidemia Insomnia Irritable bowel syndrome Lichen sclerosus et atrophicus Osteopenia Osteoporosis Pacemaker Pessary maintenance Size 6 pessary Post-menopausal bleeding Postmenopausal atrophic vaginitis Prolapse of vaginal conklin Rash and nonspecific skin eruption 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 Thoracic back pain Thoracic facet syndrome Uterine prolapse Surgical History H/O cardiac radiofrequency ablation History of permanent cardiac pacemaker placement History of removal of ovarian cyst History of tonsillectomy and adenoidectomy Hx of cholecystectomy Status post ablation of ventricular arrhythmia Status post left breast lumpectomy 03/17/17 Family History Aunt Tremor Mother Cardiac disorder Father Cardiac disorder Family/Other Breast cancer Denies family history of Ovarian cancer Prostate cancer Myocardial infarction Colorectal cancer Social History Smoking Status: Never smoker Second Hand Exposure: No; Do You Dip or Chew Tobacco: No; Hx Alcohol Use: No Hx Substance Use: No Preferred Language: Bhutanese Communication Ability: Effective Visual Impairment: Limited Hearing Ability: Hard of Hearing Spine Specialist Required: No Beliefs That Will Affect Care: None marital status: Current Living Situation: Spouse current occupational status: retired How many Children do You have: 3 Other Information That Helps Us Care for You: No Feels Safe at Home: Yes Safety Concerns: Feels Safe At This Time Childhood Exposure to Second-Hand Smoke: Yes caffeine: Yes Dental Care, Regularly: Yes Physical Activity Frequency: Does not Exercise Seatbelt Use: always Sunscreen Use: Yes Assistive Devices: Cane Physical Exam Physical Exam: GENERAL: AA&Ox3, NAD. Frail appearing. HEAD/FACE: Normocephalic and atraumatic. EYES: No drainage or conjunctival injection. ENT: Nose without bleeding or discharge. Oral mucosa moist. NECK: Full ROM without apparent pain. No swelling or masses noted. RESPIRATORY: Patient with mildly labored breathing. No signs of respiratory distress. CHEST/AXILLA: Chest movement symmetrical. No deformities noted. CARDIOVASCULAR: No edema noted. BACK: Tender to left-sided costovertebral junction and mid thoracic region. SKIN: [place], warm and dry. No rash noted. MS/EXTREMITY: No swelling, no deformities. Moving extremities appropriately. NEURO: Alert and appears oriented. Speech is fluent. Cranial Nerves are grossly intact. PSYCH: Alert, pleasant, affect is calm. Results (Pain Clinic) Diagnostic Review CT Findings: Abdomen/Pelvis CT 09/17/22 09:[address] WITHOUT CONTRAST CT DOSE: 695.54 mGy.cm HISTORY: Acute left flank pain left flank pain TECHNIQUE: Multiaxial CT images of the abdomen and pelvis were performed without contrast. A dose lowering technique was utilized adhering to the principles of ALARA. COMPARISON STUDY: CT thoracic and lumbar spine studies of same day, CT abdomen and pelvis 12/02/2019 FINDINGS: Marked cardiomegaly. Partially imaged patient leads. Dense mitral annular calcifications. Moderate left and small right pleural effusions with left greater than right bibasilar consolidation. Mild intralobular septal thickening. No pneumatosis or pneumoperitoneum. Anasarca. Diminutive spleen. Moderately atrophic pancreas. Cholecystectomy. Unremarkable adrenal glands. The liver is enlarged measuring up to 19 cm in length. No hydronephrosis. 6 no matter hypodensity of the posterior interpolar left kidney suggestive of a probable cyst. Additional probable cyst of the posterior interpolar right kidney, 10 mm. Unremarkable urinary bladder. Fibroid uterus. Atherosclerosis of the aorta without aneurysm. No lymphadenopathy identified. No bowel structure or bowel wall thickening. Colonic diverticulosis. Mild/moderate colonic fecal retention. No CT evidence of acute appendicitis. Degenerative changes of the spine, pelvis and hips. Mild lumbar levoscoliosis. No acute fracture identified. 1.1 cm anterolisthesis L4 on L5 with associated severe facet arthrosis. Transitional lumbosacral anatomy. Mild cortical angulation of the anterior left fifth rib. Suggested subtle chronic nondisplaced fracture of the left inferior pubic ramus. IMPRESSION: 1. No acute posttraumatic intra-abdominal or intrapelvic abnormality identified 2. Moderate left and small right pleural effusions with bibasilar consolidation suggestive of atelectasis. 3. Mild cortical angulation of the anterior left fifth rib. Correlate with point tenderness to exclude an acute nondisplaced fracture. 4. Additional findings as above. ACT 112: Negative or not required by law. The above report was generated using voice recognition software. It may contain grammatical, syntax or spelling errors. Electronically signed by: Evangelist Correa M.D. 09/17/2022 10:[address] 09/17/22 09:00 CT thoracic spine wo con HISTORY: 82 years-old Female acute on chronic back pain COMPARISON: Lumbar spine CT of same day, CT abdomen and pelvis 12/02/2019 TECHNIQUE: Multiple axial CT images of the thoracic spine were obtained without the use of IV contrast. A dose lowering technique was used consistent with the principals of ALARA. FINDINGS: Demineralized appearance of the bones. Mostly mild multilevel intervertebral disc space narrowing and spondylotic spurring with moderate to severe facet arthrosis. Otherwise grade 1 anterolisthesis involves several upper thoracic segments, likely secondary to chronic facet arthrosis. Mild mid thoracic dextroscoliosis. Limited evaluation of the central canal and neural foramina by CT technique. No high-grade central canal stenosis identified. Moderate left with small right pleural effusions. Bibasilar consolidation. Car diomegaly with partially imaged pacer leads. No paravertebral edema. IMPRESSION: No acute thoracic spine fracture identified. ACT 112: Negative or not required by law. The above report was generated using voice recognition software. It may contain grammatical, syntax or spelling errors. Electronically signed by: Evangelist Correa M.D. 09/17/2022 10:[address] 09/17/22 09:02 CT OF THE LUMBAR SPINE CLINICAL HISTORY: Acute on chronic lumbar pain. COMPARISON STUDY: Lumbar spine radiographs August 08, 2015. CT of the abdomen and pelvis November 25, 2019. TECHNIQUE: Helical axial images of the lumbar spine were obtained. Sagittal and coronal reconstructions were viewed. Automated exposure control was utilized for the study. A dose lowering technique was utilized adhering to the principles of ALARA. FINDINGS: Please note that the CTs of the thoracic spine and abdomen and pelvis will be reported separately. Dual-lead left subclavian pacer is in place. There is cardiomegaly. Bilateral pleural effusions, left larger than right, are better depicted on the thoracic spine CT. When numbering from above, the L4-L5 disc space is assigned to axial image 274 of 326. When utilizing this numbering scheme, L5 is sacralized. 1 cm anterolisthesis of L4 and L5 is unchanged since CT of December 02, 2019. This is due to facet arthrosis. Alignment of the lumbar spine is otherwise anatomic. No lumbar spine fracture is present. There are no suspicious osseous lesions. Sclerotic foci within the T12 vertebral body are unchanged. These are benign. The central canal and neural foramen are suboptimally assessed by CT technique. There is moderate multilevel facet arthrosis. Severe disc space narrowing at L4-L5 is unchanged. Sacroiliac joints are intact. IMPRESSION: 1. No acute lumbar spine fracture or subluxation. 2. No change in grade II anterolisthesis of L4 and L5 since CT of December 02, 2019. This is due to facet arthrosis. Severe disc space narrowing at this level which is also unchanged. 3. Moderate multilevel degenerative changes within the lumbar spine. Suboptimal evaluation of the central canal and neural foramen given CT technique. 4. Transitional vertebra at the lumbosacral junction. Please see above numbering scheme of the lumbar spine. ACT 112: Negative or not required by law. Electronically signed by: Michi Mcclendon M.D. 09/17/2022 10:16 AM
--- NOTE | 2022-09-18 17:25 | Cardiology Consultation ---
Date of Consultation September 18, 2022 Assessment & Plan (1) Atrial fibrillation with rapid ventricular response: (2) CHF exacerbation: (3) Chronic combined systolic (congestive) and diastolic (congestive) heart failure: (4) Pacemaker: (5) Valvular heart disease: Plan 1. Atrial fibrillation: Permanent. She has had atrial fibrillation now for several months. Can not discern her overall rate control based on what has been scanned into her record, but could perform a device interrogation get a sense for her ventricular rates over the past few months. I do not think this is particularly helpful as our goal simply be to maintain a ventricular rate less than 100 beats per minute. She can continue her metoprolol. I think amiodarone is a good addition. Given her degree of LV dysfunction adding a calcium channel blockers less desirable. With her advanced age I think there is little downside to some low-dose amiodarone. She will continue on systemic anticoagulation indefinitely. 2. Congestive heart failure: She has some symptoms of dyspnea on exertion. Her examination is not consistent with volume overload, but she does have pleural effusions on her CT scan. She has been administered diuretics over the past 24 hours. I think we will continue. We will need to monitor her electrolytes and her renal function closely. She is already hyponatremic. 3. Cardiomyopathy: She has mildly reduced LV systolic function. Last echocardiogram obtained in July 2021 revealed preserved systolic function. Perhaps this is related to being in atrial fibrillation over the past several months and suboptimal rate control. Will continue her on metoprolol succinate. When she appears to be euvolemic we could consider the addition of more aggressive therapy such as Entresto, spironolactone or SGLT2 inhibitor. LV dysfunction not currently to a degree where prophylactic defibrillator is recommended. 4. Valvular heart disease: She has severe mitral regurgitation and mild mitral stenosis. The mitral stenosis may simply be related to her heart rates and severe regurgitation. She appears to be a poor candidate for any intervention other than medical. 5. Valvular vegetations: Her echocardiogram demonstrates some lesions on the aortic valve. 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 No current sec will a of subacute endocarditis or systemic symptoms. However, I think obtaining routine blood culture would be reasonable. History of Present Illness Reason for Consultation: Atrial fibrillation Requesting Physician: Arin Attending Physician: Ceasar Hinkle History of Present Illness The patient is an 82-year-old woman with an extensive cardiac history to include congestive heart failure, atrial fibrillation, atrial flutter, paroxysmal ventricular tachycardia, symptomatic bradycardia status post permanent pacemaker and valvular heart disease who presented to the hospital due to intractable back pain. Pacing has a long history of back discomfort. This became more severe and she was admitted for pain control. Evaluation in the emergency room did reveal bilateral pleural effusions and atrial fibrillation with an elevated ventricular rate. The patient states that she has been experiencing progressive shortness of breath. There is certain activities which she avoids currently because she has some breathing difficulty. She did not report overt orthopnea. She does use torsemide on occasion, but titrates the amount in frequency to lower extremity edema which she feels has resolved recently. She did weigh herself recently and was around 90 lb. She feels this is lower than her usual. She has occasional palpitations. This is worse with activity. She has some dizziness which is not associated with any specific activity but may be worse when changing positions. No presyncope or syncope. No chest pain. Currently resting comfortably. She seems to have that she has some pain control with morphine. No sense of palpitation at this time. No chest pain or breathing difficulty lying in bed. Allergies Allergy/AdvReac Type Severity Reaction Status Date / Time Sulfa (Sulfonamide Allergy Mild rash Verified 09/13/22 11:04 Antibiotics) tramadol AdvReac Severe Hallucinati Verified 09/13/22 11:04 ng simvastatin AdvReac Mild HEADACHE Verified 09/13/22 11:04 lactose AdvReac Unknown Gastrointestinal Verified 09/17/22 20:03 Upset Home Medications Medication Instructions Recorded Confirmed Type multivitamin (Multiple Vitamins 1 tab PO DAILY 10/01/18 09/17/22 History tablet) polyethylene glycol 3350 17 17 g PO DAILY PRN Constipation 12/12/20 09/17/22 History gram/dose oral powder (Miralax) apixaban 2.5 mg tablet 2.5 mg PO BID #180 tabs 01/17/22 09/17/22 Rx ipratropium bromide 21 mcg (0.03 2 spray intranasal DAILY #30 mL 04/12/22 09/17/22 Rx %) nasal spray metoprolol succinate 50 mg 100 mg PO BID #360 tabs 04/12/22 09/17/22 Rx tablet,extended release 24 hr potassium chloride 20 mEq 20 meq PO DAILY #90 tabs 04/12/22 09/17/22 Rx tablet,extended release primidone 50 mg tablet 50 mg PO TID #270 tabs 06/27/22 09/17/22 Rx lubiprostone 24 mcg capsule 24 mcg PO DAILY 08/21/22 09/17/22 History (Amitiza) pravastatin 10 mg tablet 10 mg PO DAILY 08/21/22 09/17/22 History acetaminophen 300 mg-codeine 30 mg 1 tab PO BID PRN pain #60 tabs 09/04/22 09/17/22 Rx tablet latanoprost 0.005 % eye drops 1 drp ophthalmic (eye) DAILY PRN 09/17/22 09/17/22 History Unknown omeprazole 20 mg capsule,delayed 20 mg PO DAILY PRN Acid Reflux 09/17/22 09/17/22 History release Patient History Medical History Actinic keratosis AF (paroxysmal atrial fibrillation) Arteriosclerosis of carotid artery Atrial flutter, paroxysmal Benign familial tremor Breast cancer, left (2017) 02/17/17 - invasive carcinoma Chest wall pain Chronic constipation Dyslipidemia Dyssynergic constipation Elevated blood pressure reading without diagnosis of hypertension Epidermal cyst GERD (gastroesophageal reflux disease) History of SCC (squamous cell carcinoma) of skin History of ventricular tachycardia HTN (hypertension) Hyperlipidemia Insomnia Irritable bowel syndrome Lichen sclerosus et atrophicus Osteopenia Osteoporosis Pacemaker Pessary maintenance Size 6 pessary Post-menopausal bleeding Postmenopausal atrophic vaginitis Prolapse of vaginal conklin Rash and nonspecific skin eruption 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 Thoracic back pain Thoracic facet syndrome Uterine prolapse Surgical History H/O cardiac radiofrequency ablation History of permanent cardiac pacemaker placement History of removal of ovarian cyst History of tonsillectomy and adenoidectomy Hx of cholecystectomy Status post ablation of ventricular arrhythmia Status post left breast lumpectomy 03/17/17 Family History Aunt Tremor Mother Cardiac disorder Father Cardiac disorder Family/Other Breast cancer Denies family history of Ovarian cancer Prostate cancer Myocardial infarction Colorectal cancer Social History Smoking Status: Never smoker Second Hand Exposure: No; Do You Dip or Chew Tobacco: No; Hx Alcohol Use: No Hx Substance Use: No Preferred Language: Dutch Communication Ability: Effective Visual Impairment: Limited Hearing Ability: Hard of Hearing 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 Mood affect appear normal. She answered all questions appropriately. HEENT: Sclerae are anicteric. Pupils are equal and reactive to light and accommodation. Extraocular movements were intact. Neuro: Cranial nerves intact Lungs: Lungs are clear to auscultation bilaterally. There are no rales wheezes or rhonchi. She has normal respiratory effort without use of accessory muscles. There is normal pulmonary excursion. Cardiac: The rhythm was irregular. S1 and S2 were normal. High-pitched crescendo systolic murmur. The PMI was not markedly displaced on palpation. Abdomen: The abdomen was soft and nontender. Extremities: Patient has bilateral radial pulses that are equal in intensity. There is no evidence cyanosis or clubbing. There was no evidence of significant peripheral edema bilaterally. Skin: There are no rashes noted on examination today. Results & Data Vital Signs (Past 12 Hours) Vital Signs Temp Pulse Resp BP Pulse Ox Pulse Ox O2 Del Method 09/18/22 16:08 36.8 C 103 H 19 150/85 H 98 Room Air 09/18/22 12:51 98 09/18/22 12:07 36.4 C L 105 H 18 149/91 H 98 Room Air 09/18/22 07:22 36.4 C L 106 H 18 152/95 H 96 Room Air O2 Flow Rate 09/18/22 16:08 09/18/22 12:51 0 09/18/22 12:07 09/18/22 07:22 Laboratory Results Abnormal Lab Results 09/17/22 09/18/2209/18/23 17:42 06:22 06:22 WBC 7.76 RBC 4.68 Hgb 14.2 Hct 40.6 MCV 86.8 MCH 30.3 MCHC 35.0 RDW Std Deviation 44.9 RDW Coeff of [place] 14.4 Plt Count 238 MPV 11.4 Immature Gran % (Auto) 0.4 Neut % (Auto) 84.0 Lymph % (Auto) 7.7 [place] % (Auto) 7.9 Eos % (Auto) 0.0 Baso % (Auto) 0.0 Neut # (Auto) 6.52 H Lymph # (Auto) 0.60 L [place] # (Auto) 0.61 H Eos # (Auto) 0.00 Baso # (Auto) 0.00 Immature Gran # (Auto) 0.03 PT 13.1 H INR 1.2 H Sodium 128 L Potassium Chloride Carbon Dioxide Anion Gap BUN Creatinine Est Cr Clr Drug Dosing Est GFR ( Amer) Est GFR (Non-Af Amer) BUN/Creatinine Ratio Glucose Calcium Total Bilirubin AST ALT Alkaline Phosphatase Total Protein Albumin Globulin Albumin/Globulin Ratio 09/18/22 06:22 WBC RBC Hgb Hct MCV MCH MCHC RDW Std Deviation RDW Coeff of [place] Plt Count MPV Immature Gran % (Auto) Neut % (Auto) Lymph % (Auto) [place] % (Auto) Eos % (Auto) Baso % (Auto) Neut # (Auto) Lymph # (Auto) [place] # (Auto) Eos # (Auto) Baso # (Auto) Immature Gran # (Auto) PT INR Sodium 129 L Potassium 3.6 D Chloride 92 L Carbon Dioxide 28 Anion Gap 9 BUN 34 H Creatinine 0.72 Est Cr Clr Drug Dosing 38.5 Est GFR ( Amer) 89.8 Est GFR (Non-Af Amer) 77.4 BUN/Creatinine Ratio 47.2 H Glucose 104 H Calcium 8.6 Total Bilirubin 0.7 AST 60 H ALT 78 H Alkaline Phosphatase 62 Total Protein 6.1 Albumin 3.6 Globulin 2.5 Albumin/Globulin Ratio 1.4 Diagnostic Findings Echocardiogram performed 09/17/2022: Ejection fraction 45-50%. Severe LVH. Severe biatrial dilation. Aortic valve sclerosis without stenosis. Lesions noted on the aortic valve. Severe mitral regurgitation. Mild mitral stenosis. Elevated estimated pulmonary pressures at 50mm of mercury PG Care Time/CCT Total # of Minutes Spent Total Time Spent with Patient: Total time spent is greater than 50% in coordination of care (as documented) at patient's floor/unit and/or counseling patient: Coding Level of Care Code 18990 INT INP/OBS CARE 3/75MIN Diagnoses Atrial fibrillation with rapid ventricular response I48.91 CHF exacerbation I50.9 Chronic combined systolic (congestive) and diastolic (congestive) heart failure I50.42 Pacemaker Z95.0 Valvular heart disease I38
--- NOTE | 2022-09-18 22:12 | Hospitalist Progress Note ---
Date of Service September 18, 2022 Assessment & Plan (1) Atrial fibrillation with RVR: Plan: -Admit to the PCU on tele -Currently in afib RVR with HR in the 120's S/P 250 mL NSS and 2 doses of 5 mg IV lopressor in the ED -At this time it appears that her afib RVR is likely due to acute CHF exacerbation -The patient has not been using her prn Torsemide as her LE's have not been swollen, however, BNP is 1280 today with + JVD, BL pleural effusions with mild pulm edema -Electrolytes are stable, patient already on BID Eliquis for afib -Will give 40 mg IV lasix stat, followed by 40 mg IV BID for now -Continue BID PO metoprolol succinate appreciate inoput from cardio. sarah continue above treatment. (2) CHF exacerbation: Plan: -Acute on chronic -Unsure at this time if she has been in afib rvr frequently over the past month causing acute CHF or CHF exacerbated her chronic afib at this time -BNP significancy elevated at 1280, + JVD and BL pleural effusions -Will give 40 mg IV lasix now followed by 40 mg BID -Will obtain repeat TTE as her last was in 2019 -Monitor intake/output q6h and daily weights -2 gm Sodium restriction with 2L free water restriction -Monitor am renal function and electrolytes appreciate input from cardio. (3) Pleural effusion: Plan: -Patient noted to have moderate left and small right pleural effusions today -Patient is stable on RA -Likely due to acute CHF exacerbation -For now will monitor for improvement with IV diuresis -Would repeat CXR prior to discharge to ensure she is improving (4) Elevated LFTs: Plan: -AST at 42 with ALT of 59 -CT of the abd/pelvis shows hepatomegaly -Patient and confirm she is only taking 2-3 doses of her acetaminophen- codeine daily -Could be related to congestive hepatopathy from acute CHF -For now will trend LFTs tomorrow -Hold tylenol today, can restart tomorrow if LFT's are improving (5) Thoracic facet syndrome: Plan: -Patient with chronic thoracic back pain, follows with Pain management -Pain as been uncontrolled since last clinic visit on 09/13 S/P thoracic trigger point injections -CT of the thoracic and lumbar spine are without acute sings or trauma or lytic lesions, no red flag symptoms -Given 1gm IV tylenol and .5 mg IV morphine, and lidocaine patch in the ED -Will hold tylenol for now with elevated LFTs, continue lidocaine patch -Will give 1mg IV morphine now then continue q4h prn pain 5+, will also add heating pad -Can restart tylenol tomorrow if LFT's are improving -Pain management consult placed will obtain MRI of thoracic spine (6) Elevated troponin: Plan: -Initial high sen trop elevated at 16 -Patient is without chest pain/pressure -Likely due to demand from acute CHF and afib RVR -Will repeat another high sen trop STAT, continue to monitor on tele -Will FU on TTE ordered on admission (7) Hyponatremia: Plan: -Corrected sodium of 130 today -Likely a combination of poor oral intake over the past few days due to pain and acute CHF exacerbation -S/P 250 mL NSS in the ED -Giving 40 mg IV lasix now -Will order and FU on 5 pm sodium level to ensure she is improving with diuresis -For now will continue with 2gm Sodium restriction for CHF and 2L NSS free water restriction (8) Dyslipidemia: Plan: -Continue statin (9) GERD (gastroesophageal reflux disease): Plan: -Continue omeprazole (10) HTN (hypertension): Plan: -Stable -Continue metoprolol and IV diuresis (11) Constipation: Plan: -Continue miralax Admission and Anticipated Discharge Date Admission Date: September 17, 2022 Subjective 83 female reports that her pain has improved. Patient is asking when she will be having her MRI. Review of Systems Review of Systems: All systems reviewed & are unremarkable except as noted in HPI & below Physical Exam Physical Exam: Patient is lying in bed. Patient is not in any acute distress. Patient able to move all her extremities. Normal inspection of the head, eyes and nose Results & Data Results & Data Vital Signs (Past 12 Hours) Vital Signs Temp Pulse Resp BP Pulse Ox Pulse Ox O2 Del Method 09/18/22 19:35 36.6 C 95 H 18 149/87 H 99 Room Air 09/18/22 16:08 36.8 C 103 H 19 150/85 H 98 Room Air 09/18/22 12:51 98 09/18/22 12:07 36.4 C L 105 H 18 149/91 H 98 Room Air O2 Flow Rate 09/18/22 19:35 09/18/22 16:08 09/18/22 12:51 0 09/18/22 12:07 PG Care Time/CCT Total # of Minutes Spent Total Time Spent with Patient: Total time spent is greater than 50% in coordination of care (as documented) at patient's floor/unit and/or counseling patient: Coding Level of Care Code 50672 SUB INP/OBS CARE 2/35MIN Diagnoses Atrial fibrillation with RVR I48.91 CHF exacerbation I50.9 Pleural effusion J90 Elevated LFTs R79.89 Thoracic facet syndrome M47.894 Elevated troponin R77.8 Hyponatremia E87.1 Dyslipidemia E78.5 GERD (gastroesophageal reflux disease) K21.9 HTN (hypertension) I10 Hypertension type: essential hypertension Constipation K59.00 (10) HTN (hypertension) Hypertension type: essential hypertension Qualified Code(s): I10 - Essential (primary) hypertension
[2022-09-19] MEDS: MoRPHine SULFATE 2 MG/ML CARP IV PRN ×2 (04:41→23:13)
[2022-09-19 06:47] LABS: Basophils # (auto) 0.01 K/uL (0-0.2); Basophils % (auto) 0.1 %; Hematocrit (blood only) 39.2 % (37.0-47.0); Hemoglobin 13.9 g/dl (12.0-16.0); Immature Granulocytes # (auto) 0.03 K/uL (0.01-0.20); Immature Granulocytes % (auto) 0.3 %; Lymphocytes # (auto) 0.58 K/uL (1.2-3.4); Lymphocytes % (auto) 6.3 %; Mean Corpuscular Hemoglobin 30.5 pg (25.0-34.0); Mean Corpuscular Hgb Conc 35.5 g/dL (32.0-36.0); Mean Platelet Volume 10.7 fL (9.4-12.4); Monocytes # (auto) 0.64 K/uL (0.11-0.59); Monocytes % (auto) 6.9 %; Neutrophils # (auto) 7.98 K/uL (1.40-6.50); Neutrophils % (auto) 86.4 %; Platelet Count 225 K/uL (130-400); RDW Coefficient of Variation 14.3 % (11.5-14.5); Red Blood Count 4.56 M/uL (4.20-5.40); White Blood Count 9.24 K/ul (4.8-10.8)
[2022-09-19 06:58] LABS: Albumin Globulin Ratio 1.5 (0.9-2); Albumin Level 3.5 gm/dl (3.4-5.0); BUN Creatinine Ratio 40.8 (10-20); Bilirubin,Total 0.8 mg/dl (0.2-1.0); Calcium 8.4 mg/dl (8.6-10.3); Est GFR (African American) 91.3 ml/min; Est GFR (Non-African American) 78.8 ml/min; Globulin 2.4 gm/dl (2.5-4.0); Potassium 3.1 mmol/L (3.5-5.1); Total Protein 5.9 gm/dl (6.0-8.3)
[2022-09-19] MEDS: AMIODARONE 200 MG TAB PO SCH ×2 (07:06→16:39)
[2022-09-19] MEDS: METOPROLOL SUCC 50MG EXT REL TAB PO SCH ×2 (07:06→20:20)
[2022-09-19 07:19] LABS: INR 1.1 (0.9-1.1); Prothrombin Time 12.4 Seconds (9.0-12.0)
[2022-09-19] MEDS: PRAVASTATIN SOD 10 MG TAB PO SCH (09:33)
[2022-09-19] MEDS: PRIMIDONE 50 MG TAB PO SCH ×3 (09:33→20:19)
[2022-09-19] MEDS: PANTOprazole 40 MG TAB PO SCH (09:33)
[2022-09-19] MEDS: POTASSIUM CHLORIDE CRTAB 20 MEQ TABCR PO SCH (09:33)
[2022-09-19] MEDS: APIXABAN 2.5 MG TAB PO SCH ×2 (09:33→20:20)
[2022-09-19] MEDS: FUROSEMIDE 40 MG/4 ML VIAL IV SCH ×2 (09:34→16:40)
[2022-09-19] MEDS: ACETAMINOPHEN W/CODEINE #3 1 TAB PO SCH ×2 (11:35→20:18)
--- NOTE | 2022-09-19 14:09 | Magnetic Resonance Report ---
MR thoracic spine wo con HISTORY: 82 years-old Female thoracic back pain, r/o herniated disc acute low back pain COMPARISON: 09/17/2022 TECHNIQUE: Multiplanar multisequence MRI of the thoracic spine was obtained without use of IV contras t. FINDINGS: Motion degraded exam. Layering small right and moderate left pleural effusions. Cardiomegaly. Mostly mild multilevel intervertebral disc space narrowing and spondylotic spurring with moderate to severe facet arthrosis. There is a few millimeters of grade 1 anterolisthesis involving several upper thoracic segments, likely secondary to chronic facet arthrosis. Mild mid thoracic dextroscoliosis. A nterolisthesis also noted at L5 on S1 with moderate vertebral interspace narrowing. Normal signal wit hin the thoracic spinal cord. Mostly mild multilevel neural foraminal narrowing. No significant centr al canal stenosis or annular disc bulging. No acute fracture, subluxation or endplate erosion. There are a few scattered small vertebral body hemangiomata noted. IMPRESSION: 1. Motion degraded exam. No significant annular disc bulging, high-grade central canal or neural fora brenda narrowing. 2. Normal signal of the thoracic spinal cord. 3. Cardiomegaly with left greater than right layering pleural effusions. ACT 112: Negative or not required by law. The above report was generated using voice recognition software. It may contain grammatical, syntax o r spelling errors. Electronically signed by: Evangelist Correa M.D. 09/19/2022 2:08 PM
--- NOTE | 2022-09-19 18:49 | Cardiology Progress Note ---
Date of Service September 19, 2022 Assessment & Plan (1) Atrial fibrillation with rapid ventricular response: (2) CHF exacerbation: (3) Chronic combined systolic (congestive) and diastolic (congestive) heart failure: (4) Pacemaker: (5) Valvular heart disease: Plan 1. Atrial fibrillation: Permanent. Rate control still suboptimal, but adequate. No symptoms. As she takes more amiodarone will likely see a gradual decline in the heart rate over the next several weeks. She can continue systemic anticoagulation. 2. Congestive heart failure: Continue diuretics. Will monitor renal function electrolytes. 3. Cardiomyopathy: She has mildly reduced LV systolic function. Last e chocardiogram obtained in July 2021 revealed preserved systolic function. Perhaps this is related to being in atrial fibrillation over the past several months and suboptimal rate control. Will continue her on metoprolol succinate. When she appears to be euvolemic we could consider the addition of more aggressive therapy such as Entresto, spironolactone or SGLT2 inhibitor. 4. Valvular heart disease: She has severe mitral regurgitation and mild mitral stenosis. The mitral stenosis may simply be related to her heart rates and severe regurgitation. She appears to be a poor candidate for any intervention other than medical. 5. 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 No signs of endocarditis. Blood cultures currently negative. Admission and Anticipated Discharge Date Admission Date: September 17, 2022 Subjective The patient claims to be feeling better today. Back pain is significantly improved with narcotics. She did not report being ambulatory very much but was able to transfer and did not report limiting dyspnea. Minimal dizziness. Review of Systems Review of Systems: Per HPI Physical Exam Physical Exam: She is alert and oriented x3. Mood affect appear normal. She answered all questions appropriately. HEENT: Sclerae are anicteric. Pupils are equal and reactive to light and accommodation. Extraocular movements were intact. Neuro: Cranial nerves intact Lungs: Lungs are clear to auscultation bilaterally. There are no rales wheezes or rhonchi. She has normal respiratory effort without use of accessory muscles. There is normal pulmonary excursion. Cardiac: The rhythm was irregular. S1 and S2 were normal. High-pitched crescendo systolic murmur. The PMI was not markedly displaced on palpation. Extremities: Patient has bilateral radial pulses that are equal in intensity. There is no evidence cyanosis or clubbing. There was no evidence of significant peripheral edema bilaterally. Skin: There are no rashes noted on examination today. Results & Data Vital Signs (Past 12 Hours) Vital Signs Temp Pulse Pulse Resp BP Pulse Ox O2 Del Method 09/19/22 15:52 37 C 99 H 18 158/81 H 97 Room Air 09/19/22 15:00 113 H 09/19/22 11:28 36.4 C L 120 H 18 145/98 H 96 Room Air 09/19/22 08:00 Room Air 09/19/22 08:00 135 H 09/19/22 07:22 36.3 C L 123 H 18 130/90 97 Room Air Laboratory Results Abnormal Lab Results 09/19/22 09/19/22 09/19/22 06:07 06:07 06:07 WBC 9.24 RBC 4.56 Hgb 13.9 Hct 39.2 MCV 86.0 MCH 30.5 MCHC 35.5 RDW Std Deviation 45.0 RDW Coeff of [place] 14.3 Plt Count 225 MPV 10.7 Immature Gran % (Auto) 0.3 Neut % (Auto) 86.4 Lymph % (Auto) 6.3 [place] % (Auto) 6.9 Eos % (Auto) 0.0 Baso % (Auto) 0.1 Neut # (Auto) 7.98 H Lymph # (Auto) 0.58 L [place] # (Auto) 0.64 H Eos # (Auto) 0.00 Baso # (Auto) 0.01 Immature Gran # (Auto) 0.03 PT 12.4 H INR 1.1 Sodium 130 L Potassium 3.1 L Chloride 93 L Carbon Dioxide 28 Anion Gap 9 BUN 29 H Creatinine 0.71 Est Cr Clr Drug Dosing 39.0 Est GFR ( Amer) 91.3 Est GFR (Non-Af Amer) 78.8 BUN/Creatinine Ratio 40.8 H Glucose 91 Calcium 8.4 L Total Bilirubin 0.8 AST 50 H ALT 74 H Alkaline Phosphatase 56 Total Protein 5.9 L Albumin 3.5 Globulin 2.4 L Albumin/Globulin Ratio 1.5 Diagnostic Findings Echocardiogram performed 09/17/2022: Ejection fraction 45-50%. Severe LVH. Severe biatrial dilation. Aortic valve sclerosis without stenosis. Lesions noted on the aortic valve. Severe mitral regurgitation. Mild mitral stenosis. Elevated estimated pulmonary pressures at 50mm of mercury PG Care Time/CCT Total # of Minutes Spent Total Time Spent with Patient: Total time spent is greater than 50% in coordination of care (as documented) at patient's floor/unit and/or counseling patient: Coding Level of Care Code 57728 SUB INP/OBS CARE 235MIN Diagnoses Atrial fibrillation with rapid ventricular response I48.91 CHF exacerbation I50.9 Chronic combined systolic (congestive) and diastolic (congestive) heart failure I50.42 Pacemaker Z95.0 Valvular heart disease I38
--- NOTE | 2022-09-19 23:39 | Hospitalist Progress Note ---
Date of Service September 19, 2022 Assessment & Plan (1) Atrial fibrillation with RVR: Plan: -Admit to the PCU on tele -Currently in afib RVR with HR in the 120's S/P 250 mL NSS and 2 doses of 5 mg IV lopressor in the ED -At this time it appears that her afib RVR is likely due to acute CHF exacerbation -The patient has not been using her prn Torsemide as her LE's have not been swollen, however, BNP is 1280 today with + JVD, BL pleural effusions with mild pulm edema -Electrolytes are stable, patient already on BID Eliquis for afib -Will give 40 mg IV lasix stat, followed by 40 mg IV BID for now -Continue BID PO metoprolol succinate appreciate inoput from cardio. sarah continue above treatment. HR appears better controlled on 09/20 (2) CHF exacerbation: Plan: -Acute on chronic -Unsure at this time if she has been in afib rvr frequently over the past month causing acute CHF or CHF exacerbated her chronic afib at this time -BNP significancy elevated at 1280, + JVD and BL pleural effusions -Will give 40 mg IV lasix now followed by 40 mg BID -Will obtain repeat TTE as her last was in 2019 -Monitor intake/output q6h and daily weights -2 gm Sodium restriction with 2L free water restriction -Monitor am renal function and electrolytes appreciate input from cardio. (3) Pleural effusion: Plan: -Patient noted to have moderate left and small right pleural effusions today -Patient is stable on RA -Likely due to acute CHF exacerbation -For now will monitor for improvement with IV diuresis -Would repeat CXR prior to discharge to ensure she is improving (4) Elevated LFTs: Plan: -AST at 42 with ALT of 59 -CT of the abd/pelvis shows hepatomegaly -Patient and confirm she is only taking 2-3 doses of her acetaminophen- codeine daily -Could be related to congestive hepatopathy from acute CHF -For now will trend LFTs tomorrow -Hold tylenol today, can restart tomorrow if LFT's are improving (5) Thoracic facet syndrome: Plan: -Patient with chronic thoracic back pain, follows with Pain management -Pain as been uncontrolled since last clinic visit on 09/13 S/P thoracic trigger point injections -CT of the thoracic and lumbar spine are without acute sings or trauma or lytic lesions, no red flag symptoms -Given 1gm IV tylenol and .5 mg IV morphine, and lidocaine patch in the ED -Will hold tylenol for now with elevated LFTs, continue lidocaine patch -Will give 1mg IV morphine now then continue q4h prn pain 5+, will also add heating pad -Can restart tylenol tomorrow if LFT's are improving -Pain management consult placed will obtain MRI of thoracic spine: done but images not read. (6) Elevated troponin: Plan: -Initial high sen trop elevated at 16 -Patient is without chest pain/pressure -Likely due to demand from acute CHF and afib RVR -Will repeat another high sen trop STAT, continue to monitor on tele -Will FU on TTE ordered on admission (7) Hyponatremia: Plan: -Corrected sodium of 130 today -Likely a combination of poor oral intake over the past few days due to pain and acute CHF exacerbation -S/P 250 mL NSS in the ED -Giving 40 mg IV lasix now -Will order and FU on 5 pm sodium level to ensure she is improving with diuresis -For now will continue with 2gm Sodium restriction for CHF and 2L NSS free water restriction (8) Dyslipidemia: Plan: -Continue statin (9) GERD (gastroesophageal reflux disease): Plan: -Continue omeprazole (10) HTN (hypertension): Plan: -Stable -Continue metoprolol and IV diuresis (11) Constipation: Plan: -Continue miralax Admission and Anticipated Discharge Date Admission Date: September 17, 2022 Subjective 82 yo female reports her back pain appears better controlled. is concerned that she may have a flair up at home. He is requesting discussion with pain management. Review of Systems Review of Systems: All systems reviewed & are unremarkable except as noted in HPI & below Physical Exam Physical Exam: Patient is lying in bed. Patient is not in any acute distress. Patient able to move all her extremities. Normal inspection of the head, eyes and nose Results & Data Results & Data Vital Signs (Past 12 Hours) Vital Signs Temp Pulse Pulse Resp BP BP Pulse Ox 09/19/22 22:46 88 09/19/22 22:43 36.9 C 80 18 134/80 97 09/19/22 19:22 36.5 C 94 H 18 165/91 H 98 09/19/22 15:52 37 C 99 H 18 158/81 H 97 09/19/22 15:00 113 H O2 Del Method 09/19/22 22:46 09/19/22 22:43 Room Air 09/19/22 19:22 Room Air 09/19/22 15:52 Room Air 09/19/22 15:00 PG Care Time/CCT Total # of Minutes Spent Total Time Spent with Patient: Total time spent is greater than 50% in coordination of care (as documented) at patient's floor/unit and/or counseling patient: Coding Level of Care Code 11226 SUB INP/OBS CARE 2/35MIN Diagnoses Atrial fibrillation with RVR I48.91 CHF exacerbation I50.9 Pleural effusion J90 Elevated LFTs R79.89 Thoracic facet syndrome M47.894 Elevated troponin R77.8 Hyponatremia E87.1 Dyslipidemia E78.5 GERD (gastroesophageal reflux disease) K21.9 HTN (hypertension) I10 Hypertension type: essential hypertension Constipation K59.00 (10) HTN (hypertension) Hypertension type: essential hypertension Qualified Code(s): I10 - Essential (primary) hypertension
[2022-09-20] MEDS: MoRPHine SULFATE 2 MG/ML CARP IV PRN (03:17)
[2022-09-20] MEDS: MELATONIN 3 MG TAB PO PRN ×2 (03:17→21:04)
[2022-09-20 07:47] LABS: Hematocrit (blood only) 36.8 % (37.0-47.0); Immature Granulocytes # (auto) 0.03 K/uL (0.01-0.20); Immature Granulocytes % (auto) 0.3 %; Lymphocytes # (auto) 0.58 K/uL (1.2-3.4); Lymphocytes % (auto) 6.6 %; Mean Corpuscular Hgb Conc 35.3 g/dL (32.0-36.0); Mean Corpuscular Volume 84.8 fL (80.0-100.0); Monocytes # (auto) 0.63 K/uL (0.11-0.59); Monocytes % (auto) 7.2 %; Neutrophils # (auto) 7.55 K/uL (1.40-6.50); Neutrophils % (auto) 85.9 %; Platelet Count 207 K/uL (130-400); RDW Coefficient of Variation 14.3 % (11.5-14.5); RDW Standard Deviation 44.4 fL (36.4-46.3); Red Blood Count 4.34 M/uL (4.20-5.40); White Blood Count 8.79 K/ul (4.8-10.8)
[2022-09-20 08:09] LABS: Albumin Globulin Ratio 1.5 (0.9-2); Albumin Level 3.4 gm/dl (3.4-5.0); BUN Creatinine Ratio 37.1 (10-20); Bilirubin,Total 0.9 mg/dl (0.2-1.0); Calcium 8.5 mg/dl (8.6-10.3); Creatinine Clr Calc Pharmacy 42.9 ml/min; Est GFR (African American) 96.6 ml/min; Est GFR (Non-African American) 83.4 ml/min; Globulin 2.2 gm/dl (2.5-4.0); Potassium 2.8 mmol/L (3.5-5.1); Total Protein 5.6 gm/dl (6.0-8.3)
[2022-09-20 08:12] LABS: INR 1.1 (0.9-1.1); Prothrombin Time 11.9 Seconds (9.0-12.0)
[2022-09-20] MEDS: APIXABAN 2.5 MG TAB PO SCH (08:42)
[2022-09-20] MEDS: PRIMIDONE 50 MG TAB PO SCH ×3 (08:42→21:05)
[2022-09-20] MEDS: POTASSIUM CHLORIDE CRTAB 20 MEQ TABCR PO SCH (08:42)
[2022-09-20] MEDS: PANTOprazole 40 MG TAB PO SCH (08:42)
[2022-09-20] MEDS: ACETAMINOPHEN W/CODEINE #3 1 TAB PO SCH ×2 (08:42→21:04)
[2022-09-20] MEDS: METOPROLOL SUCC 50MG EXT REL TAB PO SCH ×2 (08:42→21:05)
[2022-09-20] MEDS: PRAVASTATIN SOD 10 MG TAB PO SCH (08:42)
[2022-09-20] MEDS: AMIODARONE 200 MG TAB PO SCH ×2 (08:42→16:45)
[2022-09-20] MEDS: FUROSEMIDE 40 MG/4 ML VIAL IV SCH ×2 (08:43→17:54)
[2022-09-20] MEDS ORDERED: POTASSIUM CHLORIDE CRTAB 20 MEQ TABCR PO STA ×2 (08:51→15:37)
[2022-09-20] MEDS: BACLOFEN 10 MG TAB PO SCH ×2 (12:29→21:05)
--- NOTE | 2022-09-20 15:41 | Pain Management Progress Note ---
Date of Service September 20, 2022 Assessment & Plan (1) Thoracic facet syndrome: (2) Myofascial pain: (3) Spasm of thoracic back muscle: Plan 1. Thoracic spine MRI demonstrates no evidence for significant canal or foraminal stenosis. There is no abnormal signal to the thoracic spinal cord. Of most noted findings on the MRI is that of multilevel moderate to severe facet arthrosis. * Discussed with the patient and her daughter that it is believed that her severe facet joint arthrosis is the major causative factor of her pain. * She has undergone many rounds of thoracic facet joint steroid injections, with only minimal and short-term relief. * Trigger point injections have also been only mildly effective. * Talked about the possibility of medial branch nerve blocks and radiofrequency ablation, but in the setting of her pacemaker, this is typically not recommended. We will further discuss this with the pain clinic physicians to see if doing these procedures at the [facility] might be a possibility so that there is another anesthesia provider available to monitor the patient's heart during an RFA procedure, as potentially placing a magnet on there could be protective enough to the device while an outside electrical signal was applied to the medial branch nerves. They understand that this would require having successful diagnostic medial branch nerve block procedures x2, of which her previous thoracic facet joint injections may qualify to an extent, however this is uncertain. 2. Discussed going onto an alternative muscle relaxer, as she says when she is on baclofen at home, "it makes me loopy", so she does not take it all that often. * Patient is prescribed baclofen 5 mg BID while she is here. * Consideration could be given for switching to methocarbamol, which may be continued as an outpatient and may be more tolerable for the patient. 3. Continue PT/OT. 4. We will send prescription of custom topical compounding cream next week from the pain clinic office. * Patient will apply as instructed. 5. Continue Tylenol #3. 6. Pain management team will follow peripherally at this time and update if/when there is a potential plan for further procedural interventions, which likely would not be fully arranged until the patient is in an outpatient status. Admission and Anticipated Discharge Date Admission Date: September 17, 2022 Subjective Patient still reporting the similar pain in her left-sided mid to lower thoracic region. She is saying it is difficult to get in a comfortable position. Laying flat seems to help with her pain. She says that it has been difficult to maintain any strength when she mostly has to sit in one position to be more pain-free. Patient and her daughter inquire as to what else could potentially be done to provide some pain relief. Physical Exam Physical Exam: BACK: Pain to left-sided mid thoracic region at facet joints. Results (Pain Clinic) Diagnostic Review MRI Findings: MR thoracic spine wo con HISTORY: 82 years-old Female thoracic back pain, r/o herniated disc acute low back pain COMPARISON: 09/17/2022 TECHNIQUE: Multiplanar multisequence MRI of the thoracic spine was obtained without use of IV contrast. FINDINGS: Motion degraded exam. Layering small right and moderate left pleural effusions. Cardiomegaly. Mostly mild multilevel intervertebral disc space narrowing and spondylotic spurring with moderate to severe facet arthrosis. There is a few millimeters of grade 1 anterolisthesis involving several upper thoracic segments, likely secondary to chronic facet arthrosis. Mild mid thoracic dextroscoliosis. Anterolisthesis also noted at L5 on S1 with moderate vertebral interspace narrowing. Normal signal within the thoracic spinal cord. Mostly mild multilevel neural foraminal narrowing. No significant central canal stenosis or annular disc bulging. No acute fracture, subluxation or endplate erosion. There are a few scattered small vertebral body hemangiomata noted. IMPRESSION: 1. Motion degraded exam. No significant annular disc bulging, high-grade central canal or neural foraminal narrowing. 2. Normal signal of the thoracic spinal cord. 3. Cardiomegaly with left greater than right layering pleural effusions. ACT 112: Negative or not required by law. The above report was generated using voice recognition software. It may contain grammatical, syntax or spelling errors. Electronically signed by: Evangelist Correa M.D. 09/19/2022 2:08 PM Dictated:09/19/22 1404 Transcribed: 09/19/22 1404
--- NOTE | 2022-09-20 17:18 | Cardiology Progress Note ---
Date of Service September 20, 2022 Assessment & Plan (1) Atrial fibrillation with rapid ventricular response: (2) CHF exacerbation: (3) Chronic combined systolic (congestive) and diastolic (congestive) heart failure: (4) Pacemaker: (5) Valvular heart disease: Plan 1. Atrial fibrillation: Permanent. Overall rate control appears to be improving slowly. This will likely take a few weeks for optimal effect of the amiodarone. I will continue her amiodarone at 400 mg twice daily for 1 more week then this can be converted to 200 mg daily. She will continue systemic anticoagulation indefinitely. 2. Congestive heart failure: Improving. Few symptoms. She has affected a good diuresis. Her daily diuretic could likely be reduced to 40 mg IV if she is to remain in the hospital. If she is to be discharged I think an oral dose of 20 mg daily with continued potassium supplementation would be reasonable. 3. Cardiomyopathy: She has mildly reduced LV systolic function. Last echocardiogram obtained in July 2021 revealed preserved systolic function. Perhaps this is related to being in atrial fibrillation over the past several months and suboptimal rate control. Will continue her on metoprolol succinate. When she appears to be euvolemic we could consider the addition of more aggressive therapy such as Entresto, spironolactone or SGLT2 inhibitor. 4. Valvular heart disease: She has severe mitral regurgitation and mild mitral stenosis. The mitral stenosis may simply be related to her heart rates and severe regurgitation. She appears to be a poor candidate for any intervention other than medical. 5. 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 No signs of endocarditis. Blood cultures currently negative. I think the patient could be safely discharged with the above medication recommendations. I will be away from the hospital for the next few days. If a dditional questions arise please contact the on-call [employer] attendant. Admission and Anticipated Discharge Date Admission Date: September 17, 2022 Subjective This morning patient claimed he feeling relatively well. She apparently slept well but did develop recurrence of her back discomfort late in the morning. She has not been very ambulatory. She did not describe dizziness or lightheadedness. No sense of palpitation. No chest pain. Breathing appears improved. No dyspnea at rest. Review of Systems Review of Systems: Per HPI Physical Exam Physical Exam: She is alert and oriented x3. Mood affect appear normal. She answered all questions appropriately. HEENT: Sclerae are anicteric. Pupils are equal and reactive to light and accommodation. Extraocular movements were intact. Neuro: Cranial nerves intact Lungs: Lungs are clear to auscultation bilaterally. There are no rales wheezes or rhonchi. She has normal respiratory effort without use of accessory muscles. There is normal pulmonary excursion. Cardiac: The rhythm was irregular. S1 and S2 were normal. High-pitched crescendo systolic murmur. The PMI was not markedly displaced on palpation. Extremities: Patient has bilateral radial pulses that are equal in intensity. There is no evidence cyanosis or clubbing. There was no evidence of significant peripheral edema bilaterally. Skin: There are no rashes noted on examination today. Results & Data Vital Signs (Past 12 Hours) Vital Signs Temp Pulse Pulse Resp BP BP Pulse Ox 09/20/22 16:00 88 09/20/22 16:23 37.0 C 108 H 19 134/78 98 09/20/22 11:53 36.5 C 107 H 16 150/86 H 100 09/20/22 08:00 09/20/22 08:00 88 09/20/22 08:03 36.5 C 102 H 16 156/99 H 98 O2 Del Method 09/20/22 16:00 09/20/22 16:23 Room Air 09/20/22 11:53 Room Air 09/20/22 08:00 Room Air 09/20/22 08:00 09/20/22 08:03 Room Air Laboratory Results Abnormal Lab Results 09/20/22 09/20/22 09/20/22 06:38 06:38 06:38 WBC 8.79 RBC 4.34 Hgb 13.0 Hct 36.8 L MCV 84.8 MCH 30.0 MCHC 35.3 RDW Std Deviation 44.4 RDW Coeff of [place] 14.3 Plt Count 207 MPV 11.0 Immature Gran % (Auto) 0.3 Neut % (Auto) 85.9 Lymph % (Auto) 6.6 [place] % (Auto) 7.2 Eos % (Auto) 0.0 Baso % (Auto) 0.0 Neut # (Auto) 7.55 H Lymph # (Auto) 0.58 L [place] # (Auto) 0.63 H Eos # (Auto) 0.00 Baso # (Auto) 0.00 Immature Gran # (Auto) 0.03 PT 11.9 INR 1.1 Sodium 132 L Potassium 2.8 L Chloride 94 L Carbon Dioxide 31 Anion Gap 7 BUN 23 Creatinine 0.62 Est Cr Clr Drug Dosing 42.9 Est GFR ( Amer) 96.6 Est GFR (Non-Af Amer) 83.4 BUN/Creatinine Ratio 37.1 H Glucose 100 H Calcium 8.5 L Total Bilirubin 0.9 AST 36 ALT 63 H Alkaline Phosphatase 48 Total Protein 5.6 L Albumin 3.4 Globulin 2.2 L Albumin/Globulin Ratio 1.5 PG Care Time/CCT Total # of Minutes Spent Total Time Spent with Patient: Total time spent is greater than 50% in coordination of care (as documented) at patient's floor/unit and/or counseling patient: Coding Level of Care Code 98239 SUB INP/OBS CARE 235MIN Diagnoses Atrial fibrillation with rapid ventricular response I48.91 CHF exacerbation I50.9 Chronic combined systolic (congestive) and diastolic (congestive) heart failure I50.42 Pacemaker Z95.0 Valvular heart disease I38
--- NOTE | 2022-09-20 17:39 | XRay Report ---
XR chest 2V PA/lateral CLINICAL HISTORY: pleural effusions COMPARISON STUDY: Chest radiograph September 17, 2022. FINDINGS: Left subclavian pacer is in place. Cardiomegaly is again noted with mitral annular calcific ation. Moderate left pleural effusion is again noted. A small right pleural effusion is present. Ther e is no pneumothorax. No evidence for overt pulmonary edema. IMPRESSION: 1. No significant change in moderate left and small right pleural effusions. 2. Cardiomegaly. No evidence for overt pulmonary edema. ACT 112: Negative or not required by law. Electronically signed by: Michi Mcclendon M.D. 09/20/2022 5:37 PM
--- NOTE | 2022-09-20 23:00 | Hospitalist Progress Note ---
Date of Service September 20, 2022 Assessment & Plan (1) Atrial fibrillation with RVR: Plan: -Admit to the PCU on tele -Currently in afib RVR with HR in the 120's S/P 250 mL NSS and 2 doses of 5 mg IV lopressor in the ED -At this time it appears that her afib RVR is likely due to acute CHF exacerbation -The patient has not been using her prn Torsemide as her LE's have not been swollen, however, BNP is 1280 today with + JVD, BL pleural effusions with mild pulm edema -Electrolytes are stable, patient already on BID Eliquis for afib -Will give 40 mg IV lasix stat, followed by 40 mg IV BID for now -Continue BID PO metoprolol succinate appreciate inoput from cardio. silva continue above treatment. HR appears better controlled on 09/20 (2) CHF exacerbation: Plan: -Acute on chronic -Unsure at this time if she has been in afib rvr frequently over the past month causing acute CHF or CHF exacerbated her chronic afib at this time -BNP significancy elevated at 1280, + JVD and BL pleural effusions -Will give 40 mg IV lasix now followed by 40 mg BID -Will obtain repeat TTE as her last was in 2019 -Monitor intake/output q6h and daily weights -2 gm Sodium restriction with 2L free water restriction -Monitor am renal function and electrolytes appreciate input from cardio. Patient will remain on IV diuretics BID, will see if able to remove effusion thorugh medications. WIll hold eliquis tonight in case, patient may need thoracocenthesis. Silva closely watch renal function. Patient with hypokalemia on 09/20, patient was aggressively replenished. (3) Pleural effusion: Plan: -Patient noted to have moderate left and small right pleural effusions today -Patient is stable on RA -Likely due to acute CHF exacerbation -For now will monitor for improvement with IV diuresis -Would repeat CXR prior to discharge to ensure she is improving Holding eliquis, given her relatively benign mri, perhaps effusion may be playing a role with her pain. Will reach out to pulm. (4) Elevated LFTs: Plan: -AST at 42 with ALT of 59 -CT of the abd/pelvis shows hepatomegaly -Patient and confirm she is only taking 2-3 doses of her acetaminophen- codeine daily -Could be related to congestive hepatopathy from acute CHF -For now will trend LFTs tomorrow -Hold tylenol today, can restart tomorrow if LFT's are improving (5) Thoracic facet syndrome: Plan: -Patient with chronic thoracic back pain, follows with Pain management -Pain as been uncontrolled since last clinic visit on 09/13 S/P thoracic trigger point injections -CT of the thoracic and lumbar spine are without acute sings or trauma or lytic lesions, no red flag symptoms -Given 1gm IV tylenol and .5 mg IV morphine, and lidocaine patch in the ED -Will hold tylenol for now with elevated LFTs, continue lidocaine patch -Will give 1mg IV morphine now then continue q4h prn pain 5+, will also add heating pad -Can restart tylenol tomorrow if LFT's are improving -Pain management consult placed will obtain MRI of thoracic spine: done but images not read. (6) Elevated troponin: Plan: -Initial high sen trop elevated at 16 -Patient is without chest pain/pressure -Likely due to demand from acute CHF and afib RVR -Will repeat another high sen trop STAT, continue to monitor on tele -Will FU on TTE ordered on admission (7) Hyponatremia: Plan: -Corrected sodium of 130 today -Likely a combination of poor oral intake over the past few days due to pain and acute CHF exacerbation -S/P 250 mL NSS in the ED -Giving 40 mg IV lasix now -Will order and FU on 5 pm sodium level to ensure she is improving with diuresis -For now will continue with 2gm Sodium restriction for CHF and 2L NSS free water restriction (8) Dyslipidemia: Plan: -Continue statin (9) GERD (gastroesophageal reflux disease): Plan: -Continue omeprazole (10) HTN (hypertension): Plan: -Stable -Continue metoprolol and IV diuresis (11) Constipation: Plan: -Continue miralax Admission and Anticipated Discharge Date Admission Date: September 17, 2022 Subjective Patient repots feeling better. Patient is in no distress. Review of Systems Review of Systems: All systems reviewed & are unremarkable except as noted in HPI & below Physical Exam Physical Exam: Patient is sitting upright. Patient is not in any acute distress. Patient able to move all her extremities. Normal inspection of the head, eyes and nose Results & Data Results & Data Vital Signs (Past 12 Hours) Vital Signs Temp Pulse Pulse Resp BP Pulse Ox O2 Del Method 09/20/22 22:57 36.6 C 92 H 18 135/84 97 Room Air 09/20/22 19:00 36.3 C L 104 H 18 139/88 98 Room Air 09/20/22 16:00 88 09/20/22 16:23 37.0 C 108 H 19 134/78 98 Room Air 09/20/22 11:53 36.5 C 107 H 16 150/86 H 100 Room Air PG Care Time/CCT Total # of Minutes Spent Total Time Spent with Patient: Total time spent is greater than 50% in coordination of care (as documented) at patient's floor/unit and/or counseling patient: Coding Level of Care Code 92695 SUB INP/OBS CARE 3/50MIN Diagnoses Atrial fibrillation with RVR I48.91 CHF exacerbation I50.9 Pleural effusion J90 Elevated LFTs R79.89 Thoracic facet syndrome M47.894 Elevated troponin R77.8 Hyponatremia E87.1 Dyslipidemia E78.5 GERD (gastroesophageal reflux disease) K21.9 HTN (hypertension) I10 Hypertension type: essential hypertension Constipation K59.00 Time Spent (min) 50 (10) HTN (hypertension) Hypertension type: essential hypertension Qualified Code(s): I10 - Essential (primary) hypertension
[2022-09-21] MEDS: MoRPHine SULFATE 2 MG/ML CARP IV PRN (03:12)
[2022-09-21] MEDS: AMIODARONE 200 MG TAB PO SCH ×2 (08:26→15:51)
[2022-09-21] MEDS: BACLOFEN 10 MG TAB PO SCH (08:27)
[2022-09-21] MEDS: PRAVASTATIN SOD 10 MG TAB PO SCH (08:27)
[2022-09-21] MEDS: PANTOprazole 40 MG TAB PO SCH (08:27)
[2022-09-21] MEDS: POTASSIUM CHLORIDE CRTAB 20 MEQ TABCR PO SCH (08:27)
[2022-09-21] MEDS: FUROSEMIDE 40 MG/4 ML VIAL IV SCH (08:28)
[2022-09-21] MEDS: PRIMIDONE 50 MG TAB PO SCH ×2 (08:28→15:50)
[2022-09-21 09:44] LABS: Hematocrit (blood only) 39.7 % (37.0-47.0); Hemoglobin 13.7 g/dl (12.0-16.0); Mean Corpuscular Hemoglobin 30.9 pg (25.0-34.0); Mean Corpuscular Hgb Conc 34.5 g/dL (32.0-36.0); Mean Corpuscular Volume 89.6 fL (80.0-100.0); Mean Platelet Volume 10.3 fL (9.4-12.4); Platelet Count 238 K/uL (130-400); RDW Coefficient of Variation 14.7 % (11.5-14.5); Red Blood Count 4.43 M/uL (4.20-5.40); White Blood Count 9.49 K/ul (4.8-10.8)
[2022-09-21 09:47] LABS: Potassium 4.4 mmol/L (3.5-5.1)
[2022-09-21 09:48] LABS: BUN Creatinine Ratio 37.5 (10-20); Calcium 9.5 mg/dl (8.6-10.3); Creatinine Clr Calc Pharmacy 30.9 ml/min; Est GFR (Non-African American) 68.2 ml/min
[2022-09-21] MEDS: METOPROLOL SUCC 50MG EXT REL TAB PO SCH (13:00)
[2022-09-21] MEDS: ACETAMINOPHEN W/CODEINE #3 1 TAB PO SCH (13:00)
--- NOTE | 2022-09-21 15:43 | XRay Report ---
TWO VIEW CHEST CLINICAL HISTORY: Pleural effusion.. FINDINGS: AP and lateral chest radiographs are compared to study dated 09/20/[address] scan of the thoracic spine dated 09/17/2022. The AP view is degraded by patient rotation. A 2-lead cardiac pacemaker is unchanged in position. The heart is enlarged with atherosclerotic calcification of the thoracic aorta. The pulmonary vasculature is noncongested. There are left larger than right pl eural effusions with dependent atelectasis. These are similar to yesterday. There is no pneumothorax. The skeletal structures are osteopenic. The bony thorax appears intact. IMPRESSION: 1. Cardiomegaly and cardiac pacemaker without radiographic evidence of congestive failure. 2. Left larger than right pleural effusions are similar to yesterday.. ACT 112: Negative or not required by law. Electronically signed by: Pedro Durán M.D. 09/21/2022 3:41 PM
--- NOTE | 2022-09-21 16:03 | Discharge Summary ---
Date of Service September 21, 2022 Admission HPI Per Admitting Provider Debra is an 82 year old female with a PMH significant for Paroxysmal Atrial Fibrillation, Paroxysmal Atrial Flutter s/p Prior Ablation, Paroxysmal Ventricular Tachycardia, Carotid Atherosclerosis, Dyslipidemia, Elevated Blood Pressure, Symptomatic Bradycardia s/p [employer] [place] XT DR MRI Dual Chamber Pacemaker (August 2017), Chronic Combined Systolic and Diastolic CHF, and chronic back pain who presented to the [facility] ED on 09/17/22 with complaints of uncontrolled chronic back pain. In the ED the patient was noted to be tachycardic at 142, otherwise stable. Labs were significant for a corrected sodium of 130, ATS of 42, ALT of 59 BNP of 1280, initial high sen trop of 16, and covid 19 negative. Chest xray was read as "Cardiomegaly. Moderate left and small right pleural effusions with mild interstitial pulmonary edema". CT of the abd/pelvis wo con was read as "1. No acute posttraumatic intra-abdominal or intrapelvic abnormality identified m2. Moderate left and small right pleural effusions with bibasilar consolidation suggestive of atelectasis. 3. Mild cortical angulation of the anterior left fifth rib. Correlate with point tenderness to exclude an acute nondisplaced fracture. 4. Additional findings as above.". Ct of the lumbar spine was read as "1. No acute lumbar spine fracture or subluxation. 2. No change in grade II anterolisthesis of L4 and L5 since CT of December 02, 2019. This is due to facet arthrosis. Severe disc space narrowing at this level which is also unchanged. 3. Moderate multilevel degenerative changes within the lumbar spine. Suboptimal evaluation of the central canal and neural foramen given CT technique. 4. Transitional vertebra at the lumbosacral junction. Please see above numbering scheme of the lumbar spine.". Ct of the thoracic spine was read as "No acute thoracic spine fracture identified.". ECG showed afib with RVR in the 120's. Prior to admission the patient was given 250 mL NSS, 1gm IV tylenol, a lidocaine patch, 1mg IV morphine, and 2 doses of 5 mg IV metoprolol. At the time of the exam the patient was lying in bed, unable to find a comfortable position due to back pain, with her daughter and sitting bedside. She presented to the ED today due to her uncontrolled thoracic back pain, which she has been experiencing over the past year. She confirms that this is the same back pain she has been seeing pain management for and denies any changes in symptoms since her last appointment on 09/13/22. Her pain is in the mid back/thoracic spine with increased pain in the left thoracic paraspinal muscles. She denies any recent numbness/tingling or weakness in the extremities and as been able to ambulate without issue. She has been using acetaminophen-codeine at home with minimal relief of her symptoms. When asked heart palpitations, she states that she has been noticing them for the past month or so. She has noticed increased SOB over this time as well but denies chest pain or recent cough. She was taking prn 20 mg PO Torsemide for left LE swelling but was instructed to stop the torsemide when the swelling improved. Her swelling significantly improved so she stopped taking it approximately 3 weeks ago. She tries to limit her sodium and free water intake as recommended by Cardiology. She denies recent fever, chills, chest pain, cough, abd pain, nausea, vomiting, diarrhea, dysuria, hematuria, melena, LE swelling and recent trauma. Principal Diagnosis Problem 1 Discharge Exam Patient laying flat and comfortably breathing. Patient is not in any acute distress. Patient able to move all her extremities. Normal inspection of the head, eyes and nose Discharge Data Allergies Allergy/AdvReac Type Severity Reaction Status Date / Time Sulfa (Sulfonamide Allergy Mild rash Verified 09/13/22 11:04 Antibiotics) tramadol AdvReac Severe Hallucinati Verified 09/13/22 11:04 ng simvastatin AdvReac Mild HEADACHE Verified 09/13/22 11:04 lactose AdvReac Unknown Gastrointestinal Verified 09/17/22 20:03 Upset Consultations 09/17/22 11:55 ED Decision to Admit Stat 09/17/22 12:54 Consult Pain Management Routine 09/18/22 15:28 Consult Cardiology Routine Ordered Studies 09/17/22 09:00 CT abd pelvis wo con Stat CT thoracic spine wo con Stat 09/17/22 09:02 CT lumbar spine wo con Stat 09/19/22 12:00 MR thoracic spine wo con Routine Hospital Course (1) Atrial fibrillation with RVR: -Admit to the PCU on tele _Patient initially admitted with a with HR in the 120's S/P 250 mL NSS and 2 doses of 5 mg IV lopressor in the ED -At this time it appears that her afib RVR is likely due to acute CHF exacerbation -The patient has not been using her prn Torsemide as her LE's have not been swollen, however, BNP is 1280 today with + JVD, BL pleural effusions with mild pulm edema -Electrolytes are stable, patient already on BID Eliquis for afib Patient improved with diuretics and placement of amiodarone. PAtient will continue on amiodaron 400 mg PO BID for about a week as per discharge instructions Patient will then transtion to 200 mg PO daily. Anticipate HR meredith continue to improve. Uncontrolled heart rate likely played a role for patient to have mildly low EF. will discharge patient on 40 mg PO Q2D -Continue BID PO metoprolol succinate appreciate inoput from cardio. (2) CHF exacerbation: Acute on chronic combined systolic and diastolic CHF -Acute on chronic -Unsure at this time if she has been in afib rvr frequently over the past month causing acute CHF or CHF exacerbated her chronic afib at this time -BNP significancy elevated at 1280, + JVD and BL pleural effusions -Will give 40 mg IV lasix now followed by 40 mg BID -Will obtain repeat TTE as her last was in 2019 -Monitor intake/output q6h and daily weights -2 gm Sodium restriction with 2L free water restriction -Monitor am renal function and electrolytes appreciate input from cardio. Patient will be discharged on lasix 40 mg PO q2d. will recommend followup with Cardio/ and perhaps pulmonary for discussion of thoracocenthesis. Given that patient is not having any signs of CHF, and is laying flat with no orthopnea, patient will be discharge. (3) Pleural effusion: -Patient noted to have moderate left and small right pleural effusions today -Patient is stable on RA -Likely due to acute CHF exacerbation -will continue with diuretics as an outpatient. Given that patient is clinically improving and on room air, will continue to diurese with oral lasix and discharge. Recommend followup with pulmonary. (4) Elevated LFTs: -AST at 42 with ALT of 59 -CT of the abd/pelvis shows hepatomegaly -Patient and confirm she is only taking 2-3 doses of her acetaminophen- codeine daily -Could be related to congestive hepatopathy from acute CHF -For now will trend LFTs tomorrow -Hold tylenol today, can restart tomorrow if LFT's are improving (5) Thoracic facet syndrome: -Patient with chronic thoracic back pain, follows with Pain management -Pain as been uncontrolled since last clinic visit on 09/13 S/P thoracic trigger point injections -CT of the thoracic and lumbar spine are without acute sings or trauma or lytic lesions, no red flag symptoms -Given 1gm IV tylenol and .5 mg IV morphine, and lidocaine patch in the ED -Will hold tylenol for now with elevated LFTs, continue lidocaine patch -Will give 1mg IV morphine now then continue q4h prn pain 5+, will also add heating pad -Can restart tylenol tomorrow if LFT's are improving -Pain management consult placed will obtain MRI of thoracic spine: done. PAtient will followup with pain management as an outpatient. (6) Elevated troponin: -Initial high sen trop elevated at 16 -Patient is without chest pain/pressure -Likely due to demand from acute CHF and afib RVR -Will repeat another high sen trop STAT, continue to monitor on tele -Will FU on TTE ordered on admission (7) Hyponatremia: -Corrected sodium of 130 today -Likely a combination of poor oral intake over the past few days due to pain and acute CHF exacerbation -S/P 250 mL NSS in the ED improved. (8) Dyslipidemia: -Continue statin (9) GERD (gastroesophageal reflux disease): -Continue omeprazole (10) HTN (hypertension): -Stable -Continue metoprolol and IV diuresis (11) Constipation: -Continue miralax Total Time Total Time Spent Total Time Spent (In Minutes): 32 Discharge Plan Discharge Items Patient Disposition: Home - Self-Care Reason For Visit: BACK PAIN Discharge Diagnosis: back pain Activity: Resume your previous activity Non-emergency contact: Primary Care Provider Call non-emergency contact if: you have any medication questions Follow-up/Referrals: Ramon Ortiz MD [Primary Care Provider] - (We will contact you friday am with your follow ups date/time.) Diet: Low Sodium (2gm) Addtl Attending Provider Instructions: Call your Primary Care doctor if any of the following symptoms or problems start or get worse: * Shortness of breath or difficulty breathing * Wake up at night short of breath * Chest pain * Cough * Swelling of your hands, feet, or legs * More fatigued or tired with your normal activity * Palpitations - sudden fast heart beats WEIGHT * Weigh yourself every morning after using the bathroom. * Use the same scale. * Wear the same amount of clothing. * Write your weight down on a chart. * Call your Primary Care doctor if you gain more than 2-3 pounds in 1-2 days. MEDICATIONS * Use this discharge instruction sheet for medication instructions. * Take your medications at the time your doctor ordered. * Do not skip a dose of your medicines. * If you miss a dose of medicine, take it as soon as possible, but DO NOT DOUBLE A DOSE. * Read your medicine information when you get home. * Know all of the side effects of your medicine. If in doubt, ask your pharmacist * Call your Primary Care doctor's office if you have any side effects. * Be sure all of your doctors know what medicine and herbs you take (including cold, flu, and herbal medicine). Take the following with you to your follow-up doctor appointments: * Weight Chart * Medication List * List of questions Do not drink excessive alcohol, beer or wine. will recommend followup with Cardiology within 1 month. Recommend followup with PCP in 1-2 weeks. Recommend that they check your blood work and monitor your kidney numbers. You may need a pulmonary consult to evaluate need for a possible thoracocenthesis within 6 weeks Followup with Pain management when available. Pending Studies at Discharge: No Stand-Alone Forms: [facility], Smoking Cessation Medications and DC Order Prescriptions: New amiodarone 200 mg Tablet See Rx Instructions .ROUTE .COMPLEX Qty: 60 0RF Rx Instructions: By mouth: take 2 tablets twice a day until next Friday morning, then only take one tablet once a day. furosemide [Lasix] 40 mg tablet 40 mg PO Q OTHER DAY Qty: 15 0RF baclofen 10 mg Tablet 5 mg PO BID Qty: 30 0RF Continued polyethylene glycol 3350 [Miralax] 17 gram/dose powder 17 g PO DAILY PRN (Reason: Constipation) apixaban 2.5 mg tablet 2.5 mg PO BID Qty: 180 3RF Rx Instructions: per pt she takes 2 or 3 when things are bad primidone 50 mg tablet 50 mg PO TID Qty: 270 3RF acetaminophen-codeine 300-30 mg tablet 1 tab PO BID PRN (Reason: pain) Qty: 60 0RF multivitamin [Multiple Vitamins] tablet 1 tab PO DAILY Rx Instructions: per pt she uses this "spotty" pravastatin 10 mg tablet 10 mg PO DAILY Amitiza 24 mcg capsule 24 mcg PO DAILY ipratropium bromide 21 mcg (0.03 %) spray,non-aerosol 2 spray INTNAS DAILY Qty: 30 5RF metoprolol succinate 50 mg tablet extended release 24 hr 100 mg PO BID Qty: 360 3RF potassium chloride 20 mEq tablet extended release 20 meq PO DAILY Qty: 90 3RF Rx Instructions: per pt she takes every now and then because the pill is large latanoprost 0.005 % drops 1 drp ophthalmic (eye) DAILY PRN (Reason: Unknown) omeprazole 20 mg capsule,delayed release(DR/EC) 20 mg PO DAILY PRN (Reason: Acid Reflux) Discharge Orders: Discharge Order (Routine); Ordered 09/21/22 Ordered By: Ceasar Foreman/Other Patient Handouts: Relieving Back Pain, AFib Dc Admission Data Admit Date/Time: 09/17/22 12:16 Attending Provider: Ceasar Hinkle Admit Provider: Ramon Church Primary Care Provider: Ramon Ortiz Other Providers: Ramon Church ; Mikey Kelly ; Justino Moore Other Interventions: Discharge Summary Assessment (RN) Last Done: 09/21/22 16:01 Coding Level of Care Code 68967 INP/OBS DISCH >30 MIN Diagnoses Atrial fibrillation with RVR I48.91 CHF exacerbation I50.9 Pleural effusion J90 Elevated LFTs R79.89 Thoracic facet syndrome M47.894 Elevated troponin R77.8 Hyponatremia E87.1 Dyslipidemia E78.5 GERD (gastroesophageal reflux disease) K21.9 HTN (hypertension) I10 Hypertension type: essential hypertension Constipation K59.00
== END 2022-09-21 17:43 | disposition home or self-care (01) | DRG 291 ==
LOC: ED 08:24 → 2S 12:16 → SUATTDRO 12:16 → 2S 12:51

== ENCOUNTER 2022-09-22 09:41 | Observation (INO) ==
--- NOTE | 2022-09-22 10:25 | Emergency Department Note ---
Impression & Plan Acute alteration in mental status ED Provider Note NAME: MARII RIDLEY AGE: 82 SEX: F : 1940 ARRIVES VIA: Walk-In INFORMANT: Patient, the patient's family ED PROVIDER(S): Daron Meng DO CHIEF COMPLAINT: Altered mental status HPI: The patient is an 82-year-old female who presented to the emergency department for an evaluation of altered mental status. The patient was recently discharged from our facility. She has a history of CHF. The patient has been compliant with her outpatient medications but her significant other was concerned because this morning when he awoke she was very short of breath appeared to be confused and at home her oxygen saturation was in the 80s. They brought her directly to the emergency department. The patient arrived with her and her daughter. There is no reported trauma. There is no reported fever or hemoptysis. The patient at this time does appear to be somewhat improved but still not at her baseline according to her significant other. ROS: See above HPI for pertinent positives & negatives. A total of 10 systems reviewed and were otherwise negative. PAST MEDICAL HISTORY: See Below PAST SURGICAL HISTORY: See Below FAMILY HISTORY: See Below SOCIAL HISTORY: See Below HOME MEDICATIONS: See Below ALLERGIES: See Below VITALS: See Below PHYSICAL EXAMINATION: GENERAL: The patient is awake and alert. The patient is not anxious appearing. EYES: The conjunctivae are clear. The pupils are dilated and reactive. EARS, NOSE, MOUTH AND THROAT: The nose is without any evidence of any deformity. NECK: The neck is nontender and supple. RESPIRATORY: Normal respiratory effort is noted there is no evidence of wheezing rhonchi or rales CARDIOVASCULAR: Regular rate and rhythm noted there no murmurs rubs or gallops normal S1 normal S2. GASTROINTESTINAL: The abdomen is soft. Abdomen is nontender. MUSCULOSKELETAL/EXTREMITIES: There is no evidence of gross deformity full range of motion is noted in the hips and shoulders. SKIN: There is no obvious evidence of any rash. There are no petechiae, pallor or cyanosis noted. NEUROLOGIC: Patient is awake and oriented to person and place. Strength was symmetric. There is no facial droop. Speech was clear. The patient recognizes her significant other. MEDICAL DECISION MAKING: The patient is an 82-year-old female who presented to the emergency department for an evaluation of altered mental status. The patient was recently discharged from our facility. She has a history of CHF. She was started on some new medications. She has a history of chronic back pain as well. The patient was started on medication for muscle spasm, baclofen. The patient was taking a half a tablet twice a day. She did get a dose last evening. The patient awoke this morning and appeared to be very confused according to her significant other. There was no reported trauma. I discussed the patient's laboratory and radiographic studies with the family. She was not hypoxic. Mental status continued to improve while she was in the emergency department. Ultimately she appeared to be much more awake and alert to my exam however the family still feels that the patient is not at her baseline and they were very concerned about her safety at home. They asked if I would discuss her condition with the on- call [facility] hospitalist. I will discuss her condition with them for further management and disposition. Triage Nursing notes reviewed. Prior medical records reviewed Vital Signs: reviewed and remarkable for tachycardia and hypertension. Differential diagnosis: Infection, hypoglycemia, electrolyte abnormalities, overdose, toxicologic, cardiac sources, intracerebral event, neurologic, trauma, as well as other pathologies. ER treatment provided: See below Diagnostics interpreted by me: ECG: EKG was obtained in the emergency department. My interpretation is atrial fibrillation at [address] depressions were noted. Poor R wave progression was noted. This was compared to a tracing from September 17, 2022. No changes were noted. Cardiac Monitoring: An order was placed for continuous cardiac monitoring. The monitor shows a rate of 109 bpm with sinus tachycardia. Laboratory studies: As stated above and show below. Imaging studies: See below. Radiographic imaging was reviewed by myself Consultation(s): Traction of the [facility] hospitalist group was notified about the patient. Past Med/Surg History Medical History Actinic keratosis AF (paroxysmal atrial fibrillation) Arteriosclerosis of carotid artery Atrial flutter, paroxysmal Benign familial tremor Breast cancer, left (2017) 02/17/17 - invasive carcinoma Chest wall pain Chronic constipation Dyslipidemia Dyssynergic constipation Elevated blood pressure reading without diagnosis of hypertension Epidermal cyst GERD (gastroesophageal reflux disease) History of SCC (squamous cell carcinoma) of skin History of ventricular tachycardia HTN (hypertension) Hyperlipidemia Insomnia Irritable bowel syndrome Lichen sclerosus et atrophicus Osteopenia Osteoporosis Pacemaker Pessary maintenance Size 6 pessary Post-menopausal bleeding Postmenopausal atrophic vaginitis Prolapse of vaginal conklin Rash and nonspecific skin eruption Spasm of thoracic back muscle 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 Thoracic back pain Thoracic facet syndrome Uterine prolapse Surgical History H/O cardiac radiofrequency ablation History of permanent cardiac pacemaker placement History of removal of ovarian cyst History of tonsillectomy and adenoidectomy Hx of cholecystectomy Status post ablation of ventricular arrhythmia Status post left breast lumpectomy 03/17/17 Family History Aunt Tremor Mother Cardiac disorder Father Cardiac disorder Family/Other Breast cancer Denies family history of Ovarian cancer Prostate cancer Myocardial infarction Colorectal cancer Social History Smoking Status: Never smoker Second Hand Exposure: No; Do You Dip or Chew Tobacco: No; Hx Alcohol Use: No Hx Substance Use: No Preferred Language: Latvian Communication Ability: Effective Visual Impairment: Limited Hearing Ability: Hard of Hearing 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 Beliefs That Will Affect Care: None marital status: Current Living Situation: Spouse current occupational status: retired How many Children do You have: 3 Feels Safe at Home: Yes Childhood Exposure to Second-Hand Smoke: Yes caffeine: Yes Dental Care, Regularly: Yes Physical Activity Frequency: Does not Exercise Seatbelt Use: always Sunscreen Use: Yes Assistive Devices: Cane and Walker Allergies Allergies Allergy/AdvReac Type Severity Reaction Status Date / Time Sulfa (Sulfonamide Allergy Mild rash Verified 09/22/22 12:45 Antibiotics) tramadol AdvReac Severe Hallucinati Verified 09/22/22 12:45 ng simvastatin AdvReac Mild HEADACHE Verified 09/22/22 12:45 lactose AdvReac Unknown Gastrointestinal Verified 09/22/22 12:45 Upset Home Meds Home Medications Medication Instructions Recorded Confirmed multivitamin (Multiple Vitamins 1 tab PO DAILY 10/01/18 09/22/22 tablet) polyethylene glycol 3350 17 17 g PO DAILY PRN Constipation 12/12/20 09/22/22 gram/dose oral powder (Miralax) lubiprostone 24 mcg capsule 24 mcg PO DAILY 08/21/22 09/22/22 (Amitiza) pravastatin 10 mg tablet 10 mg PO DAILY 08/21/22 09/22/22 latanoprost 0.005 % eye drops 1 drp ophthalmic (eye) BID 09/17/22 09/22/22 omeprazole 20 mg capsule,delayed 20 mg PO DAILY PRN Acid Reflux 09/17/22 09/22/22 release furosemide 40 mg tablet (Lasix) 0 mg PO Q OTHER DAY 09/22/22 09/22/22 Previous Rx's Medication Instructions Recorded apixaban 2.5 mg tablet 2.5 mg PO BID #180 tabs 01/17/22 ipratropium bromide 21 mcg (0.03 2 spray intranasal DAILY #30 mL 04/12/22 %) nasal spray metoprolol succinate 50 mg 100 mg PO BID #360 tabs 04/12/22 tablet,extended release 24 hr potassium chloride 20 mEq 20 meq PO DAILY #90 tabs 04/12/22 tablet,extended release primidone 50 mg tablet 50 mg PO TID #270 tabs 06/27/22 acetaminophen 300 mg-codeine 30 mg 1 tab PO BID PRN pain #60 tabs 09/04/22 tablet amiodarone 200 mg tablet See Rx Instructions .Route 09/21/22 .COMPLEX #60 tabs baclofen 10 mg tablet 5 mg PO BID #30 tabs 09/21/22 Results & Data (ED) Vital Signs Vital Signs - 24 hr 09/22/22 09:50 09/22/22 11:12 09/22/22 11:12 Temperature 37.0 C Temperature Source Oral Pulse Rate 107 H Pulse Rate from SpO2 Sensor Pulse Rhythm Regular Pulse Strength Normal Respiratory Rate 20 Blood Pressure 148/88 H Blood Pressure Mean 108 Blood Pressure Position Sitting Pulse Oximetry 99 95 95 Oxygen Delivery Method Room Air Room Air Room Air Oxygen Flow Rate 0 Sepsis Recent Fever Within 48 Hours No Sepsis New/Unexplained Change in Mental Status No Sepsis Action Taken by Nursing No Action Required 09/22/22 10:46 09/22/22 11:00 09/22/22 11:14 Temperature Temperature Source Pulse Rate 94 H 100 H 98 H Pulse Rate from SpO2 Sensor 97 H Pulse Rhythm Pulse Strength Respiratory Rate 15 15 Blood Pressure Blood Pressure Mean Blood Pressure Position Pulse Oximetry 98 Oxygen Delivery Method Oxygen Flow Rate Sepsis Recent Fever Within 48 Hours Sepsis New/Unexplained Change in Mental Status Sepsis Action Taken by Nursing 09/22/22 11:22 09/22/22 11:33 09/22/22 15:34 Temperature Temperature Source Pulse Rate 90 94 H 109 H Pulse Rate from SpO2 Sensor 95 H Pulse Rhythm Pulse Strength Respiratory Rate 14 22 Blood Pressure Blood Pressure Mean Blood Pressure Position Pulse Oximetry 99 Oxygen Delivery Method Oxygen Flow Rate Sepsis Recent Fever Within 48 Hours Sepsis New/Unexplained Change in Mental Status Sepsis Action Taken by Custodial Medications Current Medication List: was personally reviewed by me Laboratory Data Attestation: I reviewed the patient's lab results. 09/22/22 11:07 09/22/22 11:07 Lab Results 09/22/22 09/22/22 09/22/22 Range/Units 11:07 11:07 11:07 WBC 8.13 (4.8-10.8) K/ul RBC 4.38 (4.20-5.40) M/uL Hgb 13.5 (12.0-16.0) g/dl Hct 38.6 (37.0-47.0) % MCV 88.1 (80.0-100.0) fL MCH 30.8 (25.0-34.0) pg MCHC 35.0 (32.0-36.0) g/dL RDW Std Deviation 47.4 H (36.4-46.3) fL RDW Coeff of [place] 14.6 H (11.5-14.5) % Plt Count 238 (130-400) K/uL MPV 10.5 (9.4-12.4) fL Immature Gran % (Auto) 0.4 % Neut % (Auto) 88.4 % Lymph % (Auto) 5.9 % [place] % (Auto) 5.2 % Eos % (Auto) 0.1 % Baso % (Auto) 0.0 % Neut # (Auto) 7.19 H (1.40-6.50) K/uL Lymph # (Auto) 0.48 L (1.2-3.4) K/uL [place] # (Auto) 0.42 (0.11-0.59) K/uL Eos # (Auto) 0.01 (0-0.50) K/uL Baso # (Auto) 0.00 (0-0.2) K/uL Immature Gran # (Auto) 0.03 (0.01-0.20) K/uL PT 11.8 (9.0-12.0) Seconds INR 1.1 (0.9-1.1) APTT 25.0 (21.0-31.0) Seconds PTT Ratio 0.9 VBG pH (7.36-7.41) VBG pCO2 (38-50) mmHg VBG pO2 mmHg VBG HCO3 mmol/L VBG O2 Saturation % VBG Base Excess mEq/L Sodium 132 L (136-145) mmol/L Potassium 4.3 (3.5-5.1) mmol/L Chloride 94 L (98-107) mmol/L Carbon Dioxide 29 (21-32) mmol/L Anion Gap 9 (3-11) BUN 34 H (6-23) mg/dl Creatinine 0.81 (0.6-1.2) mg/dl Est Cr Clr Drug Dosing Not Reportable Est GFR ( Amer) 77.8 ml/min Est GFR (Non-Af Amer) 67.2 ml/min BUN/Creatinine Ratio 42.0 H (10-20) Glucose 111 H (70-99(Fasting)) mg/dl Calcium 9.3 (8.6-10.3) mg/dl Total Bilirubin 1.1 H (0.2-1.0) mg/dl AST 37 (13-39) U/L ALT 59 H (7-52) U/L Alkaline Phosphatase 56 (34-104) U/L Troponin I High Sens 10.3 (0-14) pg/ml Total Protein 6.5 (6.0-8.3) gm/dl Albumin 4.0 (3.4-5.0) gm/dl Globulin 2.5 (2.5-4.0) gm/dl Albumin/Globulin Ratio 1.6 (0.9-2) 09/22/22 Range/Units 11:33 WBC (4.8-10.8) K/ul RBC (4.20-5.40) M/uL Hgb (12.0-16.0) g/dl Hct (37.0-47.0) % MCV (80.0-100.0) fL MCH (25.0-34.0) pg MCHC (32.0-36.0) g/dL RDW Std Deviation (36.4-46.3) fL RDW Coeff of [place] (11.5-14.5) % Plt Count (130-400) K/uL MPV (9.4-12.4) fL Immature Gran % (Auto) % Neut % (Auto) % Lymph % (Auto) % [place] % (Auto) % Eos % (Auto) % Baso % (Auto) % Neut # (Auto) (1.40-6.50) K/uL Lymph # (Auto) (1.2-3.4) K/uL [place] # (Auto) (0.11-0.59) K/uL Eos # (Auto) (0-0.50) K/uL Baso # (Auto) (0-0.2) K/uL Immature Gran # (Auto) (0.01-0.20) K/uL PT (9.0-12.0) Seconds INR (0.9-1.1) APTT (21.0-31.0) Seconds PTT Ratio VBG pH 7.39 (7.36-7.41) VBG pCO2 51 H (38-50) mmHg VBG pO2 21 mmHg VBG HCO3 31 mmol/L VBG O2 Saturation < 60.0 % VBG Base Excess 4.7 mEq/L Sodium (136-145) mmol/L Potassium (3.5-5.1) mmol/L Chloride (98-107) mmol/L Carbon Dioxide (21-32) mmol/L Anion Gap (3-11) BUN (6-23) mg/dl Creatinine (0.6-1.2) mg/dl Est Cr Clr Drug Dosing Est GFR ( Amer) ml/min Est GFR (Non-Af Amer) ml/min BUN/Creatinine Ratio (10-20) Glucose (70-99(Fasting)) mg/dl Calcium (8.6-10.3) mg/dl Total Bilirubin (0.2-1.0) mg/dl AST (13-39) U/L ALT (7-52) U/L Alkaline Phosphatase (34-104) U/L Troponin I High Sens (0-14) pg/ml Total Protein (6.0-8.3) gm/dl Albumin (3.4-5.0) gm/dl Globulin (2.5-4.0) gm/dl Albumin/Globulin Ratio (0.9-2) Imaging Data Attestation: I personally reviewed and interpreted this imaging study as follows: My Impression: 1 view chest x-ray was obtained in the emergency department. My interpretation is cardiomegaly with small pleural effusion, final report below. Radiologist's Impression: Chest X-Ray 09/22/22 09:53 TWO VIEW CHEST CLINICAL HISTORY: Hypoxia.. FINDINGS: An AP, portable, upright chest radiograph is compared to study dated 09/21/[address] scan of the thoracic spine dated 09/17/2022. The examination is degraded by portable technique and patient rotation. A 2-lead cardiac pacemaker is unchanged in position. The heart is enlarged noting atherosclerotic calcification of the thoracic aorta. The pulmonary vasculature is noncongested. There is a layering left pleural effusion with left basilar consolidation. This is similar to yesterday. There is no pneumothorax. The sk eletal structures are osteopenic. There are chronic/healed left-sided rib fractures. IMPRESSION: 1. Cardiomegaly and cardiac pacemaker without radiographic evidence of congestive failure. 2. A layering left pleural effusion with left basilar consolidation is similar to yesterday. ACT 112: Negative or not required by law. Electronically signed by: Pedro Durán M.D. 09/22/2022 12:[address] 09/22/22 10:16 CT SCAN OF THE BRAIN WITHOUT IV CONTRAST CLINICAL HISTORY: Change in mental status. COMPARISON STUDY: CT of the brain dated 06/18/2010. TECHNIQUE: Unenhanced axial CT scan of the brain is performed from the vertex to the skull base. A dose lowering technique was utilized adhering to the principles of ALARA. CT DOSE: 547.75 mGy.cm FINDINGS: Brain parenchyma: There is age-related involutional change noting moderate subcortical and periventricular microangiopathic disease. There is no hemorrhage, mass effect, or evidence of acute territorial ischemia by CT criteria. Kaplan-white matter differentiation is preserved. No extra-axial fluid collection is seen. Ventricles, sulci, cisterns: Prominent secondary to involutional change. Intracranial vasculature: There is atherosclerotic calcification of the cavernous carotid arteries. Calvarium: Unremarkable. Sinuses and mastoids: There is moderate mucosal thickening with calcified debris present in the left maxillary antrum. Thickening and sclerosis the sinus wall indicates chronicity. The remaining visualized paranasal sinuses are clear. The mastoid air cells are well pneumatized. Orbits: The bony orbits are grossly intact. There are bilateral ocular lens implants. IMPRESSION: There is no hemorrhage, mass effect, or evidence of acute territorial ischemia by CT criteria. ACT 112: Negative or not required by law. Electronically signed by: Pedro Durán M.D. 09/22/2022 11:25 AM Discharge Plan Visit Data Chief Complaint: Respiratory Problems Stated Complaint: LOW OXYGEN, CONFUSED ED Provider: Daron Meng Discharge Problem: Acute alteration in mental status Patient Disposition: Being Evaluated by Hospitalist Forms Stand Alone Forms: My [facility] Prescriptions Prescriptions: No Action polyethylene glycol 3350 [Miralax] 17 gram/dose powder 17 g PO DAILY PRN (Reason: Constipation) apixaban 2.5 mg tablet 2.5 mg PO BID Qty: 180 3RF Rx Instructions: per pt she takes 2 or 3 when things are bad primidone 50 mg tablet 50 mg PO TID Qty: 270 3RF acetaminophen-codeine 300-30 mg tablet 1 tab PO BID PRN (Reason: pain) Qty: 60 0RF multivitamin [Multiple Vitamins] tablet 1 tab PO DAILY Rx Instructions: per pt she uses this "spotty" pravastatin 10 mg tablet 10 mg PO DAILY Amitiza 24 mcg capsule 24 mcg PO DAILY ipratropium bromide 21 mcg (0.03 %) spray,non-aerosol 2 spray INTNAS DAILY Qty: 30 5RF metoprolol succinate 50 mg tablet extended release 24 hr 100 mg PO BID Qty: 360 3RF potassium chloride 20 mEq tablet extended release 20 meq PO DAILY Qty: 90 3RF Rx Instructions: per pt she takes every now and then because the pill is large latanoprost 0.005 % drops 1 drp ophthalmic (eye) BID omeprazole 20 mg capsule,delayed release(DR/EC) 20 mg PO DAILY PRN (Reason: Acid Reflux) amiodarone 200 mg Tablet See Rx Instructions .ROUTE .COMPLEX Qty: 60 0RF Rx Instructions: take 2 tablets twice a day until next Friday morning, then only take one tablet once a day. - Pt hasn't started medication yet. baclofen 10 mg Tablet 5 mg PO BID Qty: 30 0RF furosemide [Lasix] 40 mg tablet 0 mg PO Q OTHER DAY Rx Instructions: Pt hasn't started medication yet Referrals Referrals: Ramon Ortiz MD [Primary Care Provider] -
[2022-09-22 11:25] LABS: Eosinophils # (auto) 0.01 K/uL (0-0.50); Eosinophils % (auto) 0.1 %; Hematocrit (blood only) 38.6 % (37.0-47.0); Hemoglobin 13.5 g/dl (12.0-16.0); Immature Granulocytes # (auto) 0.03 K/uL (0.01-0.20); Immature Granulocytes % (auto) 0.4 %; Lymphocytes # (auto) 0.48 K/uL (1.2-3.4); Lymphocytes % (auto) 5.9 %; Mean Corpuscular Hemoglobin 30.8 pg (25.0-34.0); Mean Corpuscular Volume 88.1 fL (80.0-100.0); Mean Platelet Volume 10.5 fL (9.4-12.4); Monocytes # (auto) 0.42 K/uL (0.11-0.59); Monocytes % (auto) 5.2 %; Neutrophils # (auto) 7.19 K/uL (1.40-6.50); Neutrophils % (auto) 88.4 %; Platelet Count 238 K/uL (130-400); RDW Coefficient of Variation 14.6 % (11.5-14.5); RDW Standard Deviation 47.4 fL (36.4-46.3); Red Blood Count 4.38 M/uL (4.20-5.40); White Blood Count 8.13 K/ul (4.8-10.8)
--- NOTE | 2022-09-22 11:27 | CT Scan Report ---
CT SCAN OF THE BRAIN WITHOUT IV CONTRAST CLINICAL HISTORY: Change in mental status. COMPARISON STUDY: CT of the brain dated 06/18/2010. TECHNIQUE: Unenhanced axial CT scan of the brain is performed from the vertex to the skull base. A do se lowering technique was utilized adhering to the principles of ALARA. CT DOSE: 547.75 mGy.cm FINDINGS: Brain parenchyma: There is age-related involutional change noting moderate subcortical and periventri cular microangiopathic disease. There is no hemorrhage, mass effect, or evidence of acute territorial ischemia by CT criteria. Kaplan-white matter differentiation is preserved. No extra-axial fluid collec tion is seen. Ventricles, sulci, cisterns: Prominent secondary to involutional change. Intracranial vasculature: There is atherosclerotic calcification of the cavernous carotid arteries. Calvarium: Unremarkable. Sinuses and mastoids: There is moderate mucosal thickening with calcified debris present in the left maxillary antrum. Thickening and sclerosis the sinus wall indicates chronicity. The remaining visuali zed paranasal sinuses are clear. The mastoid air cells are well pneumatized. Orbits: The bony orbits are grossly intact. There are bilateral ocular lens implants. IMPRESSION: There is no hemorrhage, mass effect, or evidence of acute territorial ischemia by CT angelitat danilo. ACT 112: Negative or not required by law. Electronically signed by: Pedro Durán M.D. 09/22/2022 11:25 AM
[2022-09-22 11:41] LABS: Alanine Aminotransferase 59 U/L (7-52); Albumin Globulin Ratio 1.6 (0.9-2); Alkaline Phosphatase 56 U/L (34-104); Anion Gap 9 (3-11); Aspartate Aminotransferase 37 U/L (13-39); Bilirubin,Total 1.1 mg/dl (0.2-1.0); Blood Urea Nitrogen 34 mg/dl (6-23); Calcium 9.3 mg/dl (8.6-10.3); Carbon Dioxide 29 mmol/L (21-32); Chloride 94 mmol/L (98-107); Est GFR (African American) 77.8 ml/min; Est GFR (Non-African American) 67.2 ml/min; Globulin 2.5 gm/dl (2.5-4.0); Glucose 111 mg/dl (70-99(Fasting)); Potassium 4.3 mmol/L (3.5-5.1); Sodium 132 mmol/L (136-145); Total Protein 6.5 gm/dl (6.0-8.3)
[2022-09-22 11:44] LABS: Base Excess VBG 4.7 mEq/L; HCO3 VBG 31 mmol/L; Oxygen Saturation VBG < 60.0 %; PCO2 VBG 51 mmHg (38-50); PO2 VBG 21 mmHg; pH VBG 7.39 (7.36-7.41)
[2022-09-22 11:47] LABS: Troponin I High Sensitivity 10.3 pg/ml (0-14)
[2022-09-22 11:51] LABS: INR 1.1 (0.9-1.1); Partial Thromboplastin Ratio 0.9; Prothrombin Time 11.8 Seconds (9.0-12.0)
--- NOTE | 2022-09-22 12:23 | XRay Report ---
TWO VIEW CHEST CLINICAL HISTORY: Hypoxia.. FINDINGS: An AP, portable, upright chest radiograph is compared to study dated 09/21/2022 and [address] ed with CT scan of the thoracic spine dated 09/17/2022. The examination is degraded by portable techni que and patient rotation. A 2-lead cardiac pacemaker is unchanged in position. The heart is enlarged noting atherosclerotic calcification of the thoracic aorta. The pulmonary vasculature is noncongeste d. There is a layering left pleural effusion with left basilar consolidation. This is similar to yest erday. There is no pneumothorax. The skeletal structures are osteopenic. There are chronic/healed lef t-sided rib fractures. IMPRESSION: 1. Cardiomegaly and cardiac pacemaker without radiographic evidence of congestive failure. 2. A layering left pleural effusion with left basilar consolidation is similar to yesterday. ACT 112: Negative or not required by law. Electronically signed by: Pedro Durán M.D. 09/22/2022 12:21 PM
--- NOTE | 2022-09-22 15:46 | History & Physical Report ---
Date of Service September 22, 2022 Assessment & Plan (1) Acute alteration in mental status: Plan: Already improving but not back to her baseline per family. ?due to baclofen and since this hasn't been helping her back spasm will discontinue TSH WNL Previously tolerating codeine without any issues (2) Pleural effusion, left: Plan: Hold Eliquis until assessed by pulmonology Consult pulmonology given associated weight loss with CT chest in the morning (3) Spasm of thoracic back muscle: Plan: Suspect due to curvature of her spine. Advised direct massage, utilizing tennis balls. Baclofen and lidocaine patches having not been effective Continue codeine/acetaminophen BID as needed (4) Oropharyngeal dysphagia: Plan: consult [facility] (5) Atrial fibrillation with rapid ventricular response: Plan: Hold Eliquis in case decision is for thoracentesis Increased rate suspect due to her not taking her medications this morning. Will restart on her usual amiodarone and metoprolol now (6) Chronic combined systolic (congestive) and diastolic (congestive) heart failure: Plan: Continue Lasix dosing she was discharged on 40mg q2d PO (7) Hyperlipidemia: Plan: Hold pravastatin given muscle aches Plan VTE Prophylaxis - Eliquis Diet - Low Na Disposition - observation to med/tele Admission and Anticipated Discharge Date Admission Date: September 22, 2022 History of Present Illness Chief Complaint: Acute confusion Primary Care Provider: Ramon Ortiz MD Debra Villafana is an 82 year old female who presents to the ER due to acute confusion episode when she woke up this morning. She was reportedly feeling well after leaving the hospital yesterday and going to sleep last night. Per her she was very disorientated and did not know where she was after waking up this morning. Asking odd questions. She has improved throughout the day but still not back to her baseline. No one sided weakness, change in speech, vision or hearing. Her is very concerned and feels he is unable to cope with her at home in her current state. She was recently admitted from September 17 - 2022 due to atrial fibrillation with rapid ventricular rate and was started on amiodarone. Lasix was increased due to congestive heart failure. They report her last admission was the first time they noted a left sided pleural effusion. Allergies Allergy/AdvReac Type Severity Reaction Status Date / Time Sulfa (Sulfonamide Allergy Mild rash Verified 09/22/22 12:45 Antibiotics) tramadol AdvReac Severe Hallucinati Verified 09/22/22 12:45 ng simvastatin AdvReac Mild HEADACHE Verified 09/22/22 12:45 lactose AdvReac Unknown Gastrointestinal Verified 09/22/22 12:45 Upset Home Medications Medication Instructions Recorded Confirmed Type multivitamin (Multiple Vitamins 1 tab PO DAILY 10/01/18 09/22/22 History tablet) polyethylene glycol 3350 17 17 g PO DAILY PRN Constipation 12/12/20 09/22/22 History gram/dose oral powder (Miralax) apixaban 2.5 mg tablet 2.5 mg PO BID #180 tabs 01/17/22 09/22/22 Rx ipratropium bromide 21 mcg (0.03 2 spray intranasal DAILY #30 mL 04/12/22 09/22/22 Rx %) nasal spray metoprolol succinate 50 mg 100 mg PO BID #360 tabs 04/12/22 09/22/22 Rx tablet,extended release 24 hr potassium chloride 20 mEq 20 meq PO DAILY #90 tabs 04/12/22 09/22/22 Rx tablet,extended release primidone 50 mg tablet 50 mg PO TID #270 tabs 06/27/22 09/22/22 Rx lubiprostone 24 mcg capsule 24 mcg PO DAILY 08/21/22 09/22/22 History (Amitiza) pravastatin 10 mg tablet 10 mg PO DAILY 08/21/22 09/22/22 History acetaminophen 300 mg-codeine 30 mg 1 tab PO BID PRN pain #60 tabs 09/04/22 09/22/22 Rx tablet latanoprost 0.005 % eye drops 1 drp ophthalmic (eye) BID 09/17/22 09/22/22 History omeprazole 20 mg capsule,delayed 20 mg PO DAILY PRN Acid Reflux 09/17/22 09/22/22 History release amiodarone 200 mg tablet See Rx Instructions .Route 09/21/22 09/22/22 Rx .COMPLEX #60 tabs baclofen 10 mg tablet 5 mg PO BID #30 tabs 09/21/22 09/22/22 Rx furosemide 40 mg tablet (Lasix) 0 mg PO Q OTHER DAY 09/22/22 09/22/22 History Past Med/Surg History Medical History Actinic keratosis AF (paroxysmal atrial fibrillation) Arteriosclerosis of carotid artery Atrial flutter, paroxysmal Benign familial tremor Breast cancer, left (2017) 02/17/17 - invasive carcinoma Chest wall pain Chronic constipation Dyslipidemia Dyssynergic constipation Elevated blood pressure reading without diagnosis of hypertension Epidermal cyst GERD (gastroesophageal reflux disease) History of SCC (squamous cell carcinoma) of skin History of ventricular tachycardia HTN (hypertension) Hyperlipidemia Insomnia Irritable bowel syndrome Lichen sclerosus et atrophicus Osteopenia Osteoporosis Pacemaker Pessary maintenance Size 6 pessary Post-menopausal bleeding Postmenopausal atrophic vaginitis Prolapse of vaginal conklin Rash and nonspecific skin eruption Spasm of thoracic back muscle 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 Thoracic back pain Thoracic facet syndrome Uterine prolapse Surgical History H/O cardiac radiofrequency ablation History of permanent cardiac pacemaker placement History of removal of ovarian cyst History of tonsillectomy and adenoidectomy Hx of cholecystectomy Status post ablation of ventricular arrhythmia Status post left breast lumpectomy 03/17/17 Family History Aunt Tremor Mother Cardiac disorder Father Cardiac disorder Family/Other Breast cancer Denies family history of Ovarian cancer Prostate cancer Myocardial infarction Colorectal cancer Social History Smoking Status: Never smoker Second Hand Exposure: No; Do You Dip or Chew Tobacco: No; Hx Alcohol Use: No Hx Substance Use: No Preferred Language: Malay Communication Ability: Effective Visual Impairment: Limited Hearing Ability: Hard of Hearing Slag Expander Required: No Beliefs That Will Affect Care: None marital status: Current Living Situation: Spouse Current Living Situation Comment: lives at home with current occupational status: retired How many Children do You have: 3 Feels Safe at Home: Yes Safety Concerns: Feels Safe At This Time Childhood Exposure to Second-Hand Smoke: Yes caffeine: Yes Dental Care, Regularly: Yes Physical Activity Frequency: Does not Exercise Seatbelt Use: always Sunscreen Use: Yes Assistive Devices: Walker Review of Systems Review of Systems: All systems reviewed & are unremarkable except as noted in HPI & below significant weight loss over the last year She notes food getting stuck in the back of her throat Physical Exam Constitutional: well developed; + not well nourished and no acute distress Eyes: PERRL, conjunctivae normal, anicteric sclerae ENMT: Mouth: oral mucous membranes not dry Respiratory: normal respiratory effort, lungs clear to auscultation Cardiovascular: Rate/Rhythm: + tachycardic and + irregularly irregular Heart Sounds: + murmur (LUSB systolic) Gastrointestinal (Abdomen): normal bowel sounds, soft, nontender, no hepatosplenomegaly Musculoskeletal: Left mid thoracic pain on palpation of tight paraspinal muscle Neurologic: moves all extremities and awake; not confused Psychiatric: A+Ox3, euthymic affect Results & Data Results & Data Vital Signs (Past 12 Hours) Vital Signs Temp Pulse Resp BP Pulse Ox O2 Del Method O2 Flow Rate 09/22/22 15:34 109 H 09/22/22 11:33 94 H 22 99 09/22/22 11:22 90 14 09/22/22 11:14 98 H 09/22/22 11:00 100 H 15 09/22/22 10:46 94 H 15 98 09/22/22 11:12 95 Room Air 09/22/22 11:12 95 Room Air 0 09/22/22 09:50 37.0 C 107 H 20 148/88 H 99 Room Air Laboratory Results Abnormal lab results 09/22/22 09/22/22 09/22/22 Range/Units 11:07 11:07 11:33 RDW Std Deviation 47.4 H (36.4-46.3) fL RDW Coeff of [place] 14.6 H (11.5-14.5) % Neut # (Auto) 7.19 H (1.40-6.50) K/uL Lymph # (Auto) 0.48 L (1.2-3.4) K/uL VBG pCO2 51 H (38-50) mmHg Sodium 132 L (136-145) mmol/L Chloride 94 L (98-107) mmol/L BUN 34 H (6-23) mg/dl BUN/Creatinine Ratio 42.0 H (10-20) Glucose 111 H (70-99(Fasting)) mg/dl Magnesium 1.6 L (1.7-2.4) mg/dl Total Bilirubin 1.1 H (0.2-1.0) mg/dl ALT 59 H (7-52) U/L Urine pH (4.5-7.5) Urine Protein (Negative) Urine Ketones (Negative) Urine Urobilinogen (Negative) Ur Leukocyte Esterase (Negative) Urine RBC (Auto) (0-4) /hpf U Epithel Cells (Auto) (0-5) /lpf 09/22/22 Range/Units 14:52 RDW Std Deviation (36.4-46.3) fL RDW Coeff of [place] (11.5-14.5) % Neut # (Auto) (1.40-6.50) K/uL Lymph # (Auto) (1.2-3.4) K/uL VBG pCO2 (38-50) mmHg Sodium (136-145) mmol/L Chloride (98-107) mmol/L BUN (6-23) mg/dl BUN/Creatinine Ratio (10-20) Glucose (70-99(Fasting)) mg/dl Magnesium (1.7-2.4) mg/dl Total Bilirubin (0.2-1.0) mg/dl ALT (7-52) U/L Urine pH 8.0 H (4.5-7.5) Urine Protein Trace H (Negative) Urine Ketones Trace H (Negative) Urine Urobilinogen Positive H (Negative) Ur Leukocyte Esterase Trace H (Negative) Urine RBC (Auto) 5-10 H (0-4) /hpf U Epithel Cells (Auto) >30 H (0-5) /lpf Diagnostic Findings TWO VIEW CHEST CLINICAL HISTORY: Hypoxia.. FINDINGS: An AP, portable, upright chest radiograph is compared to study dated 09/21/[address] scan of the thoracic spine dated 09/17/2022. The examination is degraded by portable technique and patient rotation. A 2-lead cardiac pacemaker is unchanged in position. The heart is enlarged noting atherosclerotic calcification of the thoracic aorta. The pulmonary vasculature is noncongested. There is a layering left pleural effusion with left basilar consolidation. This is similar to yesterday. There is no pneumothorax. The skeletal structures are osteopenic. There are chronic/healed left-sided rib f ractures. IMPRESSION: 1. Cardiomegaly and cardiac pacemaker without radiographic evidence of congestive failure. 2. A layering left pleural effusion with left basilar consolidation is similar to yesterday. Medications Administered ER Medications Given: None ECG Rate (beats per minute): 101 Rhythm: atrial fibrillation Findings: + nonspecific-ST abn; no acute ischemic change Comparison ECG Date: from (September 17, 2022) Change: the following changes noted (flattening of lateral T waves) Code Status & VTE Plan Code Status Full VTE Prophylaxis Plan VTE Prophylaxis will be ordered: Yes PG Care Time/CCT Total # of Minutes Spent Total Time Spent with Patient: Total time spent is greater than 50% in coordination of care (as documented) at patient's floor/unit and/or counseling patient: Coding Level of Care Code 10630 INT INP/OBS CARE 2/55MIN Diagnoses Acute alteration in mental status R41.82 Pleural effusion, left J90 Spasm of thoracic back muscle M62.830 Oropharyngeal dysphagia R13.12 Atrial fibrillation with rapid ventricular response I48.91 Chronic combined systolic (congestive) and diastolic (congestive) heart failure I50.42 Hyperlipidemia E78.5
[2022-09-22 15:55] LABS: Appearance Urine Clear (Clear); Bacteria Urine Automated Negative (Negative); Bilirubin Urine Negative (Negative); Blood Urine Negative (Negative); Color Urine Dark Yellow; Epithelial Cell Urine Auto >30 /lpf (0-5); Glucose Urine UA Negative (Negative); Ketones Urine Trace (Negative); Leukocyte Esterase Urine Trace (Negative); Nitrite Urine Negative (Negative); Urobilinogen Urine Positive (Negative)
[2022-09-22 16:02] LABS: Protein Urine Trace (Negative)
[2022-09-22] MEDS ORDERED: AMIODARONE 200 MG TAB PO ONE (16:40)
[2022-09-22] MEDS ORDERED: METOPROLOL SUCC 50MG EXT REL TAB PO STA (16:40)
[2022-09-22 17:01] LABS: Magnesium 1.6 mg/dl (1.7-2.4)
[2022-09-22] MEDS ORDERED: ACETAMINOPHEN W/CODEINE #3 1 TAB PO PRN (19:46)
[2022-09-22] MEDS ORDERED: PANTOprazole 40 MG TAB PO PRN (19:53)
[2022-09-22] MEDS ORDERED: Patient's HEIGHT &/or WEIGHT Needed STA (19:55)
[2022-09-22] MEDS ORDERED: APIXABAN 2.5 MG TAB PO SCH (21:00)
[2022-09-22] MEDS: LATANOPROST 0.005% OP SOLN 2.5 ML BTL OP SCH (21:19)
[2022-09-22] MEDS: PRIMIDONE 50 MG TAB PO SCH (21:19)
[2022-09-23 07:18] LABS: Basophils # (auto) 0.01 K/uL (0-0.2); Basophils % (auto) 0.1 %; Eosinophils # (auto) 0.01 K/uL (0-0.50); Eosinophils % (auto) 0.1 %; Hematocrit (blood only) 37.9 % (37.0-47.0); Hemoglobin 13.1 g/dl (12.0-16.0); Immature Granulocytes # (auto) 0.02 K/uL (0.01-0.20); Immature Granulocytes % (auto) 0.3 %; Lymphocytes # (auto) 0.65 K/uL (1.2-3.4); Lymphocytes % (auto) 8.5 %; Mean Corpuscular Hemoglobin 30.5 pg (25.0-34.0); Mean Corpuscular Hgb Conc 34.6 g/dL (32.0-36.0); Mean Corpuscular Volume 88.3 fL (80.0-100.0); Mean Platelet Volume 10.1 fL (9.4-12.4); Monocytes # (auto) 0.48 K/uL (0.11-0.59); Monocytes % (auto) 6.3 %; Neutrophils # (auto) 6.49 K/uL (1.40-6.50); Neutrophils % (auto) 84.7 %; Platelet Count 230 K/uL (130-400); RDW Coefficient of Variation 14.5 % (11.5-14.5); RDW Standard Deviation 46.3 fL (36.4-46.3); Red Blood Count 4.29 M/uL (4.20-5.40); White Blood Count 7.66 K/ul (4.8-10.8)
[2022-09-23 07:35] LABS: Albumin Globulin Ratio 1.5 (0.9-2); Albumin Level 3.5 gm/dl (3.4-5.0); BUN Creatinine Ratio 45.3 (10-20); Bilirubin,Total 1.3 mg/dl (0.2-1.0); Calcium 9.1 mg/dl (8.6-10.3); Creatinine Clr Calc Pharmacy 39.4 ml/min; Est GFR (African American) 95.6 ml/min; Est GFR (Non-African American) 82.5 ml/min; Globulin 2.3 gm/dl (2.5-4.0); Potassium 3.6 mmol/L (3.5-5.1); Total Protein 5.8 gm/dl (6.0-8.3)
[2022-09-23] MEDS ORDERED: OPTIRAY 320 100ml IV ONE (08:09)
[2022-09-23] MEDS: PRIMIDONE 50 MG TAB PO SCH (08:22)
[2022-09-23] MEDS: LATANOPROST 0.005% OP SOLN 2.5 ML BTL OP SCH (08:24)
--- NOTE | 2022-09-23 08:29 | CT Scan Report ---
CT OF THE CHEST WITH IV CONTRAST CLINICAL HISTORY: left sided pleural effusion ?lung nodules/mass COMPARISON STUDY: Chest radiograph September 22, 2022. Chest radiograph September 17, 2007. Thoracic spine MRI September 19, 2022. CT of the abdomen and pelvis September 17, 2022. TECHNIQUE: Following IV administration of 90 mL of Optiray, helical axial images of the chest were o btained. Sagittal and coronal reconstructions were viewed as well as maximal intensity projections o n an independent 3-D workstation. Automated exposure control was utilized for the study. A dose low ering technique was utilized adhering to the principles of ALARA. CT DOSE: 379.50 mGy.cm FINDINGS: Left subclavian pacemaker is in place. There is no thoracic aortic dissection. No pulmonar y emboli are identified. No pericardial effusion. There is marked cardiomegaly with significant dilat ation of the right and left atria. There is reflux of contrast into the IVC and hepatic veins which a re distended. There is no thoracic lymphadenopathy. No pleural nodularity is identified by CT. A smal l to moderate left pleural effusion is present. Subpleural opacity favors atelectasis. There is no co nsolidation to suggest pneumonia. There is no pneumothorax. There is a trace right pleural effusion. No acute fractures within the bony thorax are noted. There are no suspicious lesions within the bony thorax. Body wall edema is noted. This is greater on the left side IMPRESSION: 1. Small to moderate left pleural effusion. Associated subpleural opacity suggestive of atelectasis. No CT evidence for malignancy within the chest. 2. Marked cardiomegaly. Reflux of contrast into the IVC and hepatic veins which are distended. This f avors right heart dysfunction. 3. Trace right pleural effusion. ACT 112: Negative or not required by law. Electronically signed by: Michi Mcclendon M.D. 09/23/2022 8:27 AM
[2022-09-23] MEDS ORDERED: LUBIPROSTONE 8 MCG CAP PO SCH (09:00)
[2022-09-23] MEDS ORDERED: POLYETHYLENE (MIRALAX) 17 GM PACK PO SCH (09:00)
[2022-09-23] MEDS ORDERED: IPRATROPIUM BROMIDE NASAL SPRAY 0.06% 15ML NAE SCH (09:00)
[2022-09-23] MEDS ORDERED: AMIODARONE 200 MG TAB PO SCH (09:00)
[2022-09-23] MEDS ORDERED: FUROSEMIDE 40 MG TAB PO SCH (09:00)
[2022-09-23] MEDS ORDERED: METOPROLOL SUCC 50MG EXT REL TAB PO SCH (09:00)
--- NOTE | 2022-09-23 09:18 | Pulmonary Consultation ---
Date of Consultation September 23, 2022 Assessment & Plan (1) Pleural effusion, left: We discussed the etiology of the effusion including likely that this is CHF mediated. The effusion is small on pleural ultrasound. It appears to be free- flowing without evidence of loculations. It is unilateral on the left side. We discussed risks and benefits of a procedure such as a thoracentesis. She would like to hold off thoracentesis at this time as she is overall feeling well and denies any shortness of breath. Continue diuresis per primary team. Recommend repeating a chest x-ray in 4 weeks as an outpatient to follow-up on the effusion or sooner if she becomes more symptomatic. Recommend nutrition consultation given her low BMI. Recommend follow-up with the CHF clinic. Consider palliative care consultation while inpatient. No further recommendations from my perspective at this time. Thank you for all owing us to participate in the care of the patient. Please call with questions. (2) Body mass index (BMI) less than 19 in adult: (3) Cardiac cachexia: Nutrition/dietitian consult recommended. Palliative consult recommended as above. History of Present Illness Reason for Consultation: Pleural effusion Attending Physician: Ceasar Hinkle History of Present Illness 82-year-old female with a history of valvular heart disease, diastolic heart failure and systolic CHF who presented to the hospital due to confusion upon waking. Per the she was very disoriented and asking odd questions. A chest x-ray was obtained which revealed a small left pleural effusion. Dedicated CT chest revealed small to moderate left pleural effusion with compressive atelectasis. She was admitted to the hospitalist service. Her confusion was thought to be secondary to baclofen. Her Eliquis is currently on hold for the possibility of thoracentesis. She is saturating well on room air. Denies shortness of breath at rest. Mild dyspnea on exertion. No cough. No fevers. No chills. Daughter and at bedside. She denies any chest pain. Hemoglobin and platelet counts unremarkable. INR 1.1. CT chest personally reviewed. Marked cardiomegaly was noted with reflux of contrast to the IVC consistent with pulmonary hypertension. Small pleural effusion seen on the left with atelectasis. No significant thoracic lymphadenopathy or pleural nodules. Allergies Allergy/AdvReac Type Severity Reaction Status Date / Time Sulfa (Sulfonamide Allergy Mild rash Verified 09/22/22 12:45 Antibiotics) tramadol AdvReac Severe Hallucinati Verified 09/22/22 12:45 ng simvastatin AdvReac Mild HEADACHE Verified 09/22/22 12:45 lactose AdvReac Unknown Gastrointestinal Verified 09/22/22 12:45 Upset Home Medications Medication Instructions Recorded Confirmed Type multivitamin (Multiple Vitamins 1 tab PO DAILY 10/01/18 09/22/22 History tablet) polyethylene glycol 3350 17 17 g PO DAILY PRN Constipation 12/12/20 09/22/22 History gram/dose oral powder (Miralax) apixaban 2.5 mg tablet 2.5 mg PO BID #180 tabs 01/17/22 09/22/22 Rx ipratropium bromide 21 mcg (0.03 2 spray intranasal DAILY #30 mL 04/12/22 09/22/22 Rx %) nasal spray metoprolol succinate 50 mg 100 mg PO BID #360 tabs 04/12/22 09/22/22 Rx tablet,extended release 24 hr potassium chloride 20 mEq 20 meq PO DAILY #90 tabs 04/12/22 09/22/22 Rx tablet,extended release primidone 50 mg tablet 50 mg PO TID #270 tabs 06/27/22 09/22/22 Rx lubiprostone 24 mcg capsule 24 mcg PO DAILY 08/21/22 09/22/22 History (Amitiza) pravastatin 10 mg tablet 10 mg PO DAILY 08/21/22 09/22/22 History acetaminophen 300 mg-codeine 30 mg 1 tab PO BID PRN pain #60 tabs 09/04/22 09/22/22 Rx tablet latanoprost 0.005 % eye drops 1 drp ophthalmic (eye) BID 09/17/22 09/22/22 History omeprazole 20 mg capsule,delayed 20 mg PO DAILY PRN Acid Reflux 09/17/22 09/22/22 History release amiodarone 200 mg tablet See Rx Instructions .Route 09/21/22 09/22/22 Rx .COMPLEX #60 tabs baclofen 10 mg tablet 5 mg PO BID #30 tabs 09/21/22 09/22/22 Rx furosemide 40 mg tablet (Lasix) 0 mg PO Q OTHER DAY 09/22/22 09/22/22 History Patient History Medical History (Updated 09/23/22 @ 10:46 by Brett Albert MD) Actinic keratosis AF (paroxysmal atrial fibrillation) Arteriosclerosis of carotid artery Atrial flutter, paroxysmal Benign familial tremor Body mass index (BMI) less than 19 in adult Breast cancer, left (2017) 02/17/17 - invasive carcinoma Cardiac cachexia Chest wall pain Chronic constipation Dyslipidemia Dyssynergic constipation Elevated blood pressure reading without diagnosis of hypertension Epidermal cyst GERD (gastroesophageal reflux disease) History of SCC (squamous cell carcinoma) of skin History of ventricular tachycardia HTN (hypertension) Hyperlipidemia Insomnia Irritable bowel syndrome Lichen sclerosus et atrophicus Osteopenia Osteoporosis Pacemaker Pessary maintenance Size 6 pessary Post-menopausal bleeding Postmenopausal atrophic vaginitis Prolapse of vaginal conklin Rash and nonspecific skin eruption Spasm of thoracic back muscle 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 Thoracic back pain Thoracic facet syndrome Uterine prolapse Surgical History H/O cardiac radiofrequency ablation History of permanent cardiac pacemaker placement History of removal of ovarian cyst History of tonsillectomy and adenoidectomy Hx of cholecystectomy Status post ablation of ventricular arrhythmia Status post left breast lumpectomy 03/17/17 Family History Aunt Tremor Mother Cardiac disorder Father Cardiac disorder Family/Other Breast cancer Denies family history of Ovarian cancer Prostate cancer Myocardial infarction Colorectal cancer Social History Smoking Status: Never smoker Second Hand Exposure: No; Do You Dip or Chew Tobacco: No; Hx Alcohol Use: No Hx Substance Use: No Preferred Language: Malawian Communication Ability: Effective Visual Impairment: Limited Hearing Ability: Hard of Hearing Ict Customer Support Officer Required: No Beliefs That Will Affect Care: None marital status: Current Living Situation: Spouse Current Living Situation Comment: lives at home with current occupational status: retired How many Children do You have: 3 Feels Safe at Home: Yes Safety Concerns: Feels Safe At This Time Childhood Exposure to Second-Hand Smoke: Yes caffeine: Yes Dental Care, Regularly: Yes Physical Activity Frequency: Does not Exercise Seatbelt Use: always Sunscreen Use: Yes Assistive Devices: Walker Review of Systems Review of Systems: All systems reviewed & are unremarkable except as noted in HPI & below Physical Exam Physical Exam: Constitutional: Patient appears to be of their stated age. Patient is in no apparent distress. Patient is well-developed. Eyes: Pupils are equal round and reactive to light. Conjunctivae are normal. Anicteric sclera. Ears nose, mouth and throat: Mallampati class 2. Normal posterior oropharynx. Uvula is midline. Neck: Trachea is midline. Visual inspection is normal. Respiratory: Diminished at left lung base. No tachypnea. Cardiovascular: Regular rate and rhythm. No murmurs. No edema. Gastrointestinal: Normal bowel sounds, soft, nontender and nondistended. No hepatosplenomegaly noted. Musculoskeletal: No cyanosis. Patient is able to move all extremities. Skin: No rashes, warm dry and intact. Neurologic: No obvious focal neurological deficits seen. Psychiatric: Alert and oriented x3 with a euthymic affect. Results & Data Results & Data Vital Signs (Past 12 Hours) Vital Signs Temp Pulse Pulse Pulse Resp BP Pulse Ox 09/23/22 08:22 36.4 C L 86 17 136/74 95 09/23/22 07:04 94 H 09/23/22 03:37 36.7 C 98 H 20 156/87 H 99 09/22/22 23:43 37.0 C 82 20 150/74 H 96 O2 Del Method 09/23/22 08:22 Room Air 09/23/22 07:04 09/23/22 03:37 Room Air 09/22/22 23:43 Room Air PG Care Time/CCT Total # of Minutes Spent Total Time Spent with Patient: Total time spent is greater than 50% in coordination of care (as documented) at patient's floor/unit and/or counseling patient: Coding Level of Care Code 39661 INT INP/OBS CARE 3/75MIN Diagnoses Pleural effusion, left J90 Body mass index (BMI) less than 19 in adult Z68.1 Cardiac cachexia I51.9
--- NOTE | 2022-09-23 12:55 | Electrocardiogram Report ---
Test Reason : Blood Pressure : / mmHG Vent. Rate : 101 BPM Atrial Rate : 000 BPM P-R Int : 000 ms QRS Dur : 084 ms QT Int : 372 ms P-R-T Axes : 000 019 -12 degrees QTc Int : 482 ms Poor data quality, interpretation may be adversely affected Atrial fibrillation with rapid ventricular response Nonspecific ST and T wave abnormality Abnormal ECG When compared with ECG of 17-SEP-2022 09:20, Criteria for Anterior infarct are no longer Present Nonspecific T wave abnormality now evident in Lateral leads Confirmed by Daron Lara ([id number]) on 09/23/2022 12:55:18 PM Referred By: REFERRED SELF Confirmed By:Daron Lara
--- NOTE | 2022-09-23 13:45 | Discharge Summary ---
Date of Service September 23, 2022 Admission HPI Per Admitting Provider Debra Villafana is an 82 year old female who presents to the ER due to acute confusion episode when she woke up this morning. She was reportedly feeling well after leaving the hospital yesterday and going to sleep last night. Per her she was very disorientated and did not know where she was after waking up this morning. Asking odd questions. She has improved throughout the day but still not back to her baseline. No one sided weakness, change in speech, vision or hearing. Her is very concerned and feels he is unable to cope with her at home in her current state. She was recently admitted from September 17 - 2022 due to atrial fibrillation with rapid ventricular rate and was started on amiodarone. Lasix was increased due to congestive heart failure. They report her last admission was the first time they noted a left sided pleural effusion. Principal Diagnosis delirium likely secondary to medication Discharge Exam Patient lying in bed in no acute distress. AAOx3 Discharge Data Allergies Allergy/AdvReac Type Severity Reaction Status Date / Time Sulfa (Sulfonamide Allergy Mild rash Verified 09/22/22 12:45 Antibiotics) tramadol AdvReac Severe Hallucinati Verified 09/22/22 12:45 ng simvastatin AdvReac Mild HEADACHE Verified 09/22/22 12:45 lactose AdvReac Unknown Gastrointestinal Verified 09/22/22 12:45 Upset Consultations 09/22/22 15:48 ED Decision to Admit Stat 09/23/22 07:05 Consult Pulmonology Routine Ordered Studies 09/22/22 10:16 CT head/brain wo con Stat 09/23/22 07:00 CT chest diagnostic w con Routine Hospital Course (1) Acute alteration in mental status: Already improving but not back to her baseline per family. ?due to baclofen and since this hasn't been helping her back spasm will discontinue TSH WNL Previously tolerating codeine without any issues resolved once off baclofen. (2) Pleural effusion, left: Consult pulmonology given associated weight loss with CT chest in the morning pulmonary recommends rechecking chest x ray in 4 weeks. (3) Spasm of thoracic back muscle: Suspect due to curvature of her spine. Advised direct massage, utilizing tennis balls. Baclofen and lidocaine patches having not been effective Continue codeine/acetaminophen BID as needed (4) Oropharyngeal dysphagia: consult SLT (5) Atrial fibrillation with rapid ventricular response: Hold Eliquis in case decision is for thoracentesis Increased rate suspect due to her not taking her medications this morning. Will restart on her usual amiodarone and metoprolol now (6) Chronic combined systolic (congestive) and diastolic (congestive) heart failure: Continue Lasix dosing she was discharged on 40mg q2d PO (7) Hyperlipidemia: may consider holding pravastatin at discharge. will defer to PCP Total Time Total Time Spent Total Time Spent (In Minutes): 32 Discharge Plan Discharge Items Patient Disposition: Home - Self-Care Reason For Visit: ACUTE CONFUSION Discharge Diagnosis: acute confusion Activity: Resume your previous activity Non-emergency contact: Primary Care Provider Call non-emergency contact if: you have any medication questions Follow-up/Referrals: Ramon Ortiz MD [Primary Care Provider] - 09/26/22 11:00 am (Radha Watkins PA-C) Mikhail Carroll MD [Physician] - 09/24/22 2:15 pm Diet: Low Sodium (2gm) Addtl Attending Provider Instructions: Recommend repeating a chest x-ray in 4 weeks as an outpatient to follow-up. Will defer to PCP. Pending Studies at Discharge: No Stand-Alone Forms: [facility] [employer], Smoking Cessation Medications and DC Order Prescriptions: Continued polyethylene glycol 3350 [Miralax] 17 gram/dose powder 17 g PO DAILY PRN (Reason: Constipation) apixaban 2.5 mg tablet 2.5 mg PO BID Qty: 180 3RF Rx Instructions: per pt she takes 2 or 3 when things are bad primidone 50 mg tablet 50 mg PO TID Qty: 270 3RF acetaminophen-codeine 300-30 mg tablet 1 tab PO BID PRN (Reason: pain) Qty: 60 0RF multivitamin [Multiple Vitamins] tablet 1 tab PO DAILY Rx Instructions: per pt she uses this "spotty" pravastatin 10 mg tablet 10 mg PO DAILY Amitiza 24 mcg capsule 24 mcg PO DAILY ipratropium bromide 21 mcg (0.03 %) spray,non-aerosol 2 spray INTNAS DAILY Qty: 30 5RF metoprolol succinate 50 mg tablet extended release 24 hr 100 mg PO BID Qty: 360 3RF potassium chloride 20 mEq tablet extended release 20 meq PO DAILY Qty: 90 3RF Rx Instructions: per pt she takes every now and then because the pill is large latanoprost 0.005 % drops 1 drp ophthalmic (eye) BID omeprazole 20 mg capsule,delayed release(DR/EC) 20 mg PO DAILY PRN (Reason: Acid Reflux) amiodarone 200 mg Tablet See Rx Instructions .ROUTE .COMPLEX Qty: 60 0RF Rx Instructions: take 2 tablets twice a day until next Friday morning, then only take one tablet once a day. - Pt hasn't started medication yet. furosemide [Lasix] 40 mg tablet 0 mg PO Q OTHER DAY Rx Instructions: Pt hasn't started medication yet Discontinued baclofen 10 mg Tablet 5 mg PO BID Qty: 30 0RF Discharge Orders: Discharge Order (Routine); Ordered 09/23/22 Ordered By: Ceasar Hinkle Admission Data Admit Date/Time: 09/22/22 15:50 Attending Provider: Ceasar Hinkle Admit Provider: Abdon Rehman Primary Care Provider: Ramon Ortiz Other Providers: Abdon Rehman ; Brett Albert Other Interventions: Discharge Summary Assessment (RN) Last Done: 09/23/22 12:23 Coding Level of Care Code 98764 INP/OBS DISCH >30 MIN Diagnoses Acute alteration in mental status R41.82 Pleural effusion, left J90 Spasm of thoracic back muscle M62.830 Oropharyngeal dysphagia R13.12 Atrial fibrillation with rapid ventricular response I48.91 Chronic combined systolic (congestive) and diastolic (congestive) heart failure I50.42 Hyperlipidemia E78.5
[2022-09-29] MEDS ORDERED: AMIODARONE 200 MG TAB PO SCH ×2 (09:00)
== END 2022-09-23 13:02 | disposition home or self-care (01) ==
LOC: ED 09:41 → 2N 09:41 → SUATTDRO 15:50 → 2N 17:51

== ENCOUNTER 2024-04-14 15:39 | Inpatient (IN) ==
[2024-04-14 16:43] LABS: Basophils # (auto) 0.06 K/uL (0.00-0.20); Basophils % (auto) 0.8 %; Eosinophils # (auto) 0.09 K/uL (0.00-0.50); Eosinophils % (auto) 1.2 %; Hematocrit (blood only) 39.3 % (37.0-47.0); Hemoglobin 13.2 g/dl (12.0-16.0); Immature Granulocytes # (auto) 0.03 K/uL (0.01-0.20); Immature Granulocytes % (auto) 0.4 %; Lymphocytes # (auto) 1.44 K/uL (1.20-3.40); Lymphocytes % (auto) 19.1 %; Mean Corpuscular Hemoglobin 31.2 pg (25.0-34.0); Mean Corpuscular Hgb Conc 33.6 g/dL (32.0-36.0); Mean Corpuscular Volume 92.9 fL (80.0-100.0); Mean Platelet Volume 10.1 fL (9.4-12.4); Monocytes # (auto) 0.59 K/uL (0.11-0.59); Monocytes % (auto) 7.8 %; Neutrophils # (auto) 5.33 K/uL (1.40-6.50); Neutrophils % (auto) 70.7 %; Platelet Count 330 K/uL (130-400); RDW Coefficient of Variation 13.7 % (11.5-14.5); RDW Standard Deviation 46.7 fL (36.4-46.3); Red Blood Count 4.23 M/uL (4.20-5.40); White Blood Count 7.54 K/ul (4.8-10.8)
[2024-04-14 17:02] LABS: Alanine Aminotransferase 48 U/L (7-52); Albumin Globulin Ratio 1.2 (0.9-2); Albumin Level 3.8 gm/dl (3.4-5.0); Alkaline Phosphatase 75 U/L (34-104); Anion Gap 7 (3-11); Aspartate Aminotransferase 68 U/L (13-39); BUN Creatinine Ratio 46.3 (10-20); Bilirubin,Total 0.7 mg/dl (0.2-1.0); Blood Urea Nitrogen 31 mg/dl (6-23); Calcium 9.2 mg/dl (8.6-10.3); Carbon Dioxide 32 mmol/L (21-32); Chloride 100 mmol/L (98-107); Globulin 3.3 gm/dl (2.5-4.0); Glucose 102 mg/dl (70-99(Fasting)); Potassium 4.2 mmol/L (3.5-5.1); Sodium 139 mmol/L (136-145); Total Protein 7.1 gm/dl (6.0-8.3)
--- NOTE | 2024-04-14 17:20 | Emergency Department Note ---
Impression & Plan Intractable low back pain, Chronic back pain, Generalized weakness ED Provider Note NAME: MARII RIDLEY AGE: 83 SEX: F : 1940 ARRIVES VIA: Walk-In INFORMANT: Patient ED PROVIDER(S): Keon Bray MD CHIEF COMPLAINT: Back pain, weakness PLAN: Disposition: Admit MEDICAL DECISION MAKING: The patient is a pleasant 83-year-old woman with a past medical history of IBS, atrial fibrillation on amiodarone and Eliquis, chronic back pain, hypertension, hyperlipidemia, GERD who presents to the emergency department via walk-in code by family for worsening low back pain for the past week where they reports she has had difficulty walking even with her walker. They also report that she has been more fatigued than usual sleeping most of the day until noon or later. They deny fevers, cough, congestion, chest pain, shortness of breath. Patient denies any urinary retention or loss of bowel control. She has a history of a history of IBS and bowel movements range from diarrhea to constipation but denies any daily diarrhea and never more than a bowel movement. The patient has had poor appetite over the past several weeks. They reported the patient did not take her medications this morning due to sleeping throughout the day and then coming to this department. They report the patient's doctor started the patient on Nucynta for her back pain but this has not helped. They report that the patient has had extensive testing for her back pain in the past and feels that there has been "no answers". On my evaluation the patient is in no distress, afebrile blood pressure 220s/70s and vital signs otherwise stable. Appears clinically dry. She has mild discomfort of the right lower lumbar paraspinal muscle region without midline tenderness to palpation or step-offs. She has normal strength and bilateral upper and lower extremities. EKG demonstrates sinus rhythm with intermittent atrial paced beats without overt ST elevation. WBC, H/H and platelets within normal limits. Chemistry without metabolic acidosis. BUN 31 with BUNs/creatinine is 46 consistent with patient's clinical dry appearance. AST is 68, slightly increased from prior LFTs otherwise normal. CPK within normal limits. UA with 2+ ketones and otherwise no convincing evidence of infection. CT abdomen pelvis and CT lumbar spine were performed and demonstrated unchanged degenerative changes with moderate to advanced degenerative change of facet joints of L4-L5. No acute intra-abdominal process. Uterine fibroid is described. The patient was treated with gentle IV fluid hydration, IV APAP, dexamethasone, lidocaine patch and they reported mild improvement in her symptoms and were requesting stronger pain medication. 2 mg of IV morphine was ordered. Patient and family did agree with plan for admission for further management of her acute on chronic intractable back pain. Case was discussed with MAICO Beltran hospitalist, who will evaluate the patient for admission. Further management per admitting team. Triage Nursing notes reviewed and agree them. Prior/external medical records reviewed Vital Signs: reviewed Differential diagnosis: Musculoskeletal, disc herniation, fracture, metastatic disease, cord compression, discitis, sciatica, cauda equina, infection, aortic disease, renal colic, gastrointestinal, as well as other pathologies. ER treatment provided: See below. Diagnostics interpreted by me: ECG: Normal sinus rhythm with sinus arrhythmia and intermittent atrial paced beats, 64 bpm, nonspecific ST and T wave abnormality, no ST elevation or depression. Cardiac Monitoring: An order for continuous cardiac monitoring was placed and demonstrated Normal sinus rhythm with sinus arrhythmia and intermittent atrial paced beats, 64 bpm. Laboratory studies: See below Imaging studies: See below Consultation(s): Case was discussed with MAICO Beltran hospitalist, who will evaluate the patient for admission. HPI: The patient is a pleasant 83-year-old woman with a past medical history of IBS, atrial fibrillation on amiodarone and Eliquis, chronic back pain, hypertension, hyperlipidemia, GERD who presents to the emergency department via walk-in code by family for worsening low back pain for the past week where they reports she has had difficulty walking even with her walker. They also report that she has been more fatigued than usual sleeping most of the day until noon or later. They deny fevers, cough, congestion, chest pain, shortness of breath. Patient denies any urinary retention or loss of bowel control. She has a history of a history of IBS and bowel movements range from diarrhea to constipation but denies any daily diarrhea and never more than a bowel movement. The patient has had poor appetite over the past several weeks. They reported the patient did not take her medications this morning due to sleeping throughout the day and then coming to this department. They report the patient's doctor started the patient on Nucynta for her back pain but this has not helped. They report that the patient has had extensive testing for her back pain in the past and feels that there has been "no answers". ROS: See above HPI for pertinent positives & negatives. A total of 10 systems reviewed and were otherwise negative. VITALS:See Below PHYSICAL EXAMINATION: GENERAL: Awake, alert, in no distress HENT: Normocephalic, atraumatic. Oropharynx with dry mucous membranes and otherwise unremarkable. EYES: Normal conjunctiva. Sclera non-icteric. NECK: Supple. No nuchal rigidity. FROM. No JVD. RESPIRATORY: Clear to auscultation. CARDIAC: Regular rate, normal rhythm. Extremities warm and well perfused. Pulses equal. ABDOMEN: Soft, non-distended. No tenderness to palpation. No rebound or guarding. No masses. MUSCULOSKELETAL: Chest examination reveals no tenderness. The back is symmetrical on inspection without obvious abnormality. There is no CVA tenderness to palpation. No joint edema. LOWER EXTREMITIES: Calves are equal size bilaterally and non-tender. No edema. No discoloration. NEURO: No focal sensory or motor deficits noted. 5/5 strength and SILT x 4 extremities. DTRs wnl. SKIN: No rash or jaundice noted. Keon Bray MD Past Med/Surg History Problem List (Updated 04/15/24 @ 19:02 by Keon Bray MD) Generalized weakness (Acute) Chronic back pain (Acute) Intractable low back pain (Acute) Acute on chronic back pain Thoracic facet syndrome Diarrhea Pacemaker On amiodarone therapy Chronic thoracic back pain (Chronic) Pulmonary hypertension Chronic back pain (Acute) History of breast cancer Permanent atrial fibrillation Body mass index (BMI) less than 19 in adult Oropharyngeal dysphagia Valvular heart disease Thoracic facet syndrome (Chronic) Chronic combined systolic (congestive) and diastolic (congestive) heart failure Osteoporosis Cervical radiculopathy Arteriosclerosis of carotid artery Benign familial tremor Dyslipidemia History of SCC (squamous cell carcinoma) of skin History of ventricular tachycardia Insomnia Lichen sclerosus et atrophicus Prolapse of vaginal conklin Essential tremor (Chronic) GERD (gastroesophageal reflux disease) HTN (hypertension) Medical History 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) use of anticoagulants Pacemaker follows with Dr Carroll Oropharyngeal dysphagia History of breast cancer "Soft detected left breast mass Status post ultrasound-guided core needle biopsy 02/07/2017 revealing invasive carcinoma grade 1, patient is unsure of specific treatment, records state lumpectomy left Pulmonary hypertension Valvular heart disease Osteoporosis History of ventricular tachycardia 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 GERD (gastroesophageal reflux disease) Chronic combined systolic (congestive) and diastolic (congestive) heart failure follows with Dr Carroll Cervical radiculopathy Dyslipidemia Hypertension Benign familial tremor Arteriosclerosis of carotid artery Pessary maintenance Size 6 pessary AF (paroxysmal atrial fibrillation) Eliquis, follows with Dr Carroll Atrial flutter, paroxysmal Thoracic back pain Surgical History Status post left breast lumpectomy 03/17/17 Status post ablation of ventricular arrhythmia History of removal of ovarian cyst History of tonsillectomy and adenoidectomy Hx of cholecystectomy H/O cardiac radiofrequency ablation Family History Aunt Tremor Mother Cardiac disorder Father Cardiac disorder Family/Other Breast cancer Denies family history of Ovarian cancer Prostate cancer Myocardial infarction Colorectal cancer Social History Smoking Status: Never smoker Second Hand Exposure: No; Do You Dip or Chew Tobacco: No; Hx Alcohol Use: No Hx Substance Use: No Preferred Language: Stateless Communication Ability: Effective Visual Impairment: Limited Hearing Ability: Hard of Hearing Casing Finisher And Stuffer Required: No Beliefs That Will Affect Care: None marital status: Current Living Situation: Spouse Current Living Situation Comment: lives at home with current occupational status: retired How many Children do You have: 3 Other Information That Helps Us Care for You: No Feels Safe at Home: Yes Safety Concerns: Feels Safe At This Time Childhood Exposure to Second-Hand Smoke: Yes caffeine: Yes Dental Care, Regularly: Yes Physical Activity Frequency: Does not Exercise Seatbelt Use: always Sunscreen Use: Yes Assistive Devices: Walker Allergies Allergies Allergy/AdvReac Type Severity Reaction Status Date / Time Sulfa (Sulfonamide Allergy Mild rash Verified 03/17/24 10:05 Antibiotics) tramadol AdvReac Severe Hallucinati Verified 03/17/24 10:05 ng simvastatin AdvReac Mild HEADACHE Verified 03/17/24 10:05 baclofen AdvReac Unknown disorientat Verified 03/17/24 10:05 ion lactose AdvReac Unknown Gastrointestinal Verified 03/17/24 10:05 Upset Home Meds Home Medications Medication Instructions Recorded Confirmed multivitamin (Multiple Vitamins 1 tab PO DAILY 10/01/18 04/14/24 tablet) polyethylene glycol 3350 17 17 g PO DAILY PRN Constipation 12/12/20 04/14/24 gram/dose oral powder (Miralax) latanoprost 0.005 % eye drops 1 drp OPB QAM 09/17/22 04/14/24 timolol maleate 0.5 % eye drops 1 drp OPB QPM 01/07/23 04/14/24 furosemide 40 mg tablet (Lasix) 40 mg PO 2XWK 01/14/24 04/14/24 amiodarone 200 mg tablet 200 mg PO QAM 03/10/24 04/14/24 ipratropium bromide 21 mcg (0.03 1 spray intranasal QAM 04/14/24 04/14/24 %) nasal spray tapentadol 50 mg tablet (Nucynta) 50 mg PO BID PRN Headache 04/14/24 04/14/24 Previous Rx's Medication Instructions Recorded metoprolol succinate 50 mg 100 mg (2 x 50 mg) PO BID #360 tabs 04/23/23 tablet,extended release 24 hr primidone 50 mg tablet 50 mg PO TID #270 tabs 04/23/23 mirtazapine 15 mg tablet 7.5 mg (1/2 x 15 mg) PO HS #45 tabs 05/26/23 lubiprostone 24 mcg capsule 24 mcg PO QPM #90 caps 11/07/23 (Amitiza) omeprazole 20 mg capsule,delayed 20 mg PO DAILY PRN Acid Reflux #90 12/25/23 release caps pravastatin 10 mg tablet 10 mg PO QAM #90 tabs 03/15/24 digoxin 125 mcg (0.125 mg) tablet 125 mcg PO Q2D #45 tabs 03/23/24 apixaban 2.5 mg tablet 2.5 mg PO BID #180 tabs 03/26/24 potassium chloride 20 mEq oral 20 meq PO QAM #90 ea 03/26/24 packet Results & Data (ED) Vital Signs Vital Signs - 24 hr 04/14/24 20:29 Pulse Rate [Finger] 60 Respiratory Rate 18 Respiratory Effort / Characteristics Non-Labored Spontaneous Respiratory Depth Normal Respiratory Pattern Regular Blood Pressure [Left Arm] 174/71 H Blood Pressure Mean [Left Arm] 105 Pulse Oximetry 96 Oxygen Delivery Method Room Air Laboratory Data Attestation: I reviewed the patient's lab results. 04/14/24 16:28 04/14/24 16:28 Lab Results 04/14/24 Range/Units 16:28 WBC 7.54 (4.8-10.8) K/ul RBC 4.23 (4.20-5.40) M/uL Hgb 13.2 (12.0-16.0) g/dl Hct 39.3 (37.0-47.0) % MCV 92.9 (80.0-100.0) fL MCH 31.2 (25.0-34.0) pg MCHC 33.6 (32.0-36.0) g/dL RDW Std Deviation 46.7 H (36.4-46.3) fL RDW Coeff of [place] 13.7 (11.5-14.5) % Plt Count 330 (130-400) K/uL MPV 10.1 (9.4-12.4) fL Immature Gran % (Auto) 0.4 % Neut % (Auto) 70.7 % Lymph % (Auto) 19.1 % [place] % (Auto) 7.8 % Eos % (Auto) 1.2 % Baso % (Auto) 0.8 % Neut # (Auto) 5.33 (1.40-6.50) K/uL Lymph # (Auto) 1.44 (1.20-3.40) K/uL [place] # (Auto) 0.59 (0.11-0.59) K/uL Eos # (Auto) 0.09 (0.00-0.50) K/uL Baso # (Auto) 0.06 (0.00-0.20) K/uL Immature Gran # (Auto) 0.03 (0.01-0.20) K/uL Sodium 139 (136-145) mmol/L Potassium 4.2 (3.5-5.1) mmol/L Chloride 100 (98-107) mmol/L Carbon Dioxide 32 (21-32) mmol/L Anion Gap 7 (3-11) BUN 31 H (6-23) mg/dl Creatinine 0.67 (0.6-1.2) mg/dl Est Cr Clr Drug Dosing Not Reportable eGFR 86.13 BUN/Creatinine Ratio 46.3 H (10-20) Glucose 102 H (70-99(Fasting)) mg/dl Calcium 9.2 (8.6-10.3) mg/dl Phosphorus 3.8 (2.5-4.9) mg/dl Magnesium 1.9 (1.7-2.4) mg/dl Total Bilirubin 0.7 (0.2-1.0) mg/dl AST 68 H (13-39) U/L ALT 48 (7-52) U/L Alkaline Phosphatase 75 (34-104) U/L Total Creatine Kinase 54 (26-192) U/L Total Protein 7.1 (6.0-8.3) gm/dl Albumin 3.8 (3.4-5.0) gm/dl Globulin 3.3 (2.5-4.0) gm/dl Albumin/Globulin Ratio 1.2 (0.9-2) TSH 1.277 (0.300-4.500) uIu/ml Administered Medications Acetaminophen (Acetaminophen 500 Mg Tab) 1,000 mg PO TID [facility] Stop: 05/15/24 08:59 Last Admin: 04/15/24 15:17 Dose: Not Given Documented By: Admin: 04/15/24 08:41 Dose: 1,000 mg Documented By: ARJUN Amiodarone HCl (Amiodarone 200 Mg Tab) 200 mg PO QAM [facility] Stop: 05/15/24 08:59 Last Admin: 04/15/24 08:42 Dose: 200 mg Documented By: ARJUN Apixaban (Apixaban 2.5 Mg Tab) 2.5 mg PO BID [facility] Stop: 05/14/24 22:29 Last Admin: 04/15/24 08:42 Dose: 2.5 mg Documented By: Admin: 04/14/24 22:49 Dose: 2.5 mg Documented By: ALPHONSE Cyclobenzaprine HCl (Cyclobenzaprine Hcl 5 Mg Tab) 5 mg PO HS PRN PRN Reason: back pain Stop: 05/14/24 21:51 Last Admin: 04/15/24 01:47 Dose: 5 mg Documented By: ALPHONSE Digoxin (Digoxin 0.125 Mg Tab) 0.125 mg PO Q2D@1600 [facility] Stop: 05/14/24 23:14 Last Admin: 04/14/24 23:49 Dose: 0.125 mg Documented By: ALPHONSE Latanoprost (Latanoprost 0.005% Op Soln 2.5 Ml Btl) [facility] Stop: 05/15/24 08:59 Last Admin: 04/15/24 08:42 Dose: 1 drops Documented By: ARJUN Lidocaine (Lidocaine 5% 1 Patch) [facility] Stop: 05/15/24 08:59 Last Admin: 04/15/24 08:43 Dose: 1 patch Documented By: ARJUN Lubiprostone (Lubiprostone 8 Mcg Cap) 24 mcg PO QPM [facility] Stop: 05/14/24 22:14 Last Admin: 04/14/24 22:49 Dose: 24 mcg Documented By: ALPHONSE Metoprolol Succinate (Metoprolol Succ 50mg Ext Rel Tab) 100 mg PO BID [facility] Stop: 05/14/24 21:51 Last Admin: 04/15/24 08:42 Dose: 100 mg Documented By: Admin: 04/14/24 22:49 Dose: 100 mg Documented By: ALPHONSE Mirtazapine (Mirtazapine Tab 15 Mg Tab) 7.5 mg PO [facility] Stop: 05/14/24 22:14 Last Admin: 04/14/24 22:50 Dose: 7.5 mg Documented By: ALPHONSE Miscellletha (Remove Lidoderm Patch) 1 each N/A DAILY@2100 [facility] Stop: 05/14/24 20:59 Last Admin: 04/14/24 22:38 Dose: Not Given Documented By: ALPHONSE Phillips (Order Awaiting Action Ipratropium [place]) 1 each N/A QS [facility] Stop: 05/15/24 00:00 Last Admin: 04/15/24 15:02 Dose: Not Given Documented By: Admin: 04/15/24 07:27 Dose: Not Given Documented By: Admin: 04/14/24 23:49 Dose: Not Given Documented By: ALPHONSE Morphine Sulfate (Morphine Sulfate 4 Mg/Ml 1 Ml Carp\\Vial) 2 mg IV Q3H PRN PRN Reason: Pain (6,7,8,9,10) Stop: 04/28/24 21:51 Last Admin: 04/15/24 12:48 Dose: 2 mg Documented By: ARJUN Multivitamins (Multivitamin Tab) 1 tab PO DAILY [facility] Stop: 05/15/24 08:59 Last Admin: 04/15/24 08:42 Dose: 1 tab Documented By: ARJUN Potassium Chloride (Potassium Chloride Pwd 20 Meq Pack) [facility] Stop: 05/15/24 08:59 Last Admin: 04/15/24 08:42 Dose: 20 meq Documented By: ARJUN Pravastatin Sodium (Pravastatin Sod 10 Mg Tab) 10 mg PO QAM ALISE Stop: 05/15/24 08:59 Last Admin: 04/15/24 08:42 Dose: 10 mg Documented By: ARJUN Primidone (Primidone 50 Mg Tab) 50 mg PO TID [facility] Stop: 05/14/24 22:14 Last Admin: 04/15/24 15:12 Dose: 50 mg Documented By: Admin: 04/15/24 08:42 Dose: 50 mg Documented By: Admin: 04/14/24 22:50 Dose: 50 mg Documented By: ALPHONSE Timolol Maleate (Timolol Maleate 0.5% Op Soln 5 Ml Btl) 1 drops OPB QPM ALISE Stop: 05/14/24 22:14 Last Admin: 04/14/24 22:50 Dose: 1 drops Documented By: ALPHONSE Discontinued Medications Dexamethasone Sodium Phosphate (DexamethasonePf 10 Mg/Ml Vial) 10 mg IV NOW ONE Stop: 04/14/24 17:41 Last Admin: 04/14/24 18:10 Dose: 10 mg Documented By: JAYLENE Hydromorphone HCl (Hydromorphone Inj 0.5 Mg/0.5 Ml Syr) 0.25 mg IV NOW STA Stop: 04/14/24 20:44 Last Admin: 04/14/24 20:56 Dose: 0.25 mg Documented By: OLGA Sodium Chloride (Nss) 500 mls @ 999 mls/hr IV .Q31M ONE Stop: 04/14/24 18:10 Last Infusion: 04/14/24 19:11 Dose: Infused Documented By: Admin: 04/14/24 18:10 Dose: 999 mls/hr Documented By: JAYLENE Acetaminophen (Ofirmev) 1,000 mg in 100 mls @ 400 mls/hr IV NOW STA Stop: 04/14/24 17:54 Last Infusion: 04/14/24 19:12 Dose: Infused Documented By: Admin: 04/14/24 18:09 Dose: 400 mls/hr Documented By: JAYLENE Magnesium Sulfate/Dextrose (Magnesium Sulfate / D5w) 1 gm in 100 mls @ 50 mls/hr IV ONE STA Stop: 04/14/24 23:12 Last Infusion: 04/15/24 00:42 Dose: Infused Documented By: Admin: 04/14/24 22:45 Dose: 50 mls/hr Documented By: ALPHONSE Lidocaine (Lidocaine 5% 1 Patch) 1 patch TD NOW STA Stop: 04/14/24 17:41 Last Admin: 04/14/24 18:10 Dose: 1 patch Documented By: JAYLENE Morphine Sulfate (Morphine Sulfate 2 Mg/Ml Carp) 2 mg IV NOW STA Stop: 04/14/24 19:39 Last Admin: 04/14/24 19:42 Dose: 2 mg Documented By: SARAH Imaging Data Radiologist's Impression: Abdomen/Pelvis CT 04/14/24 17:39 Technique: Axial computed tomography images were obtained of the abdomen and pelvis after the administration of intravenous contrast. Comparison is made to the prior CT dated 09/17/2022. Findings: The liver is overall of normal size, attenuation, and contour with no sign of cirrhosis or significant fatty infiltration. No liver mass lesion is seen. The portal vein is patent. The gallbladder has been removed. No bile duct dilatation is noted. The spleen is of normal size. No focal splenic lesion is evident. The pancreas appears normal with no sign of acute or chronic pancreatitis and no mass lesion noted. The pancreatic duct is of normal caliber. The adrenal glands appear unremarkable. No definite renal or proximal ureteral calculi are seen on this contrast-enhanced study. There is no hydronephrosis or perinephric stranding. No renal mass lesion is identified. There are bilateral renal cysts, measuring up to 1.2 cm. The aorta is of normal caliber. No abdominal adenopathy is seen. The stomach appears normal. There is no sign of small bowel obstruction. There is diverticulosis without evidence of diverticulitis. No free intraperitoneal fluid or air is identified. No distal ureteral or bladder calculi are seen. No bladder mass lesion is evident. The iliac arteries are of normal caliber. No pelvic adenopathy is noted. There is a 3.2 cm enhancing uterine leiomyoma. There are small bilateral inguinal hernias containing fat There are small bilateral pleural effusions. There is bilateral lower lobe atelectasis. The heart is enlarged. Pacemaker leads are present Mild lumbar scoliosis and degenerative disc disease is seen. There is grade 2 anterolisthesis at L5-S1 Impression: 1. Small bilateral pleural effusions 2. Small bilateral renal cysts 3. Diverticulosis without evidence of diverticulitis 4. Uterine leiomyoma Electronically signed by Eduard Mcneill 04-14-2024 6:[address] 04/14/24 17:39 EXAMINATION: CT lumbar spine with contrast CLINICAL HISTORY: Acute on chronic lower back pain PRIORS: CT lumbar spine 09/17/2022 TECHNIQUE: Contiguous axial images were obtained through the thoracic spine with the use of intravenous contrast FINDINGS: Moderate osseous demineralization noted. Vertebral body heights are maintained with no high-grade compression fracture. Approximately 8.5 mm of anterolisthesis of L5 on S1 is present which compares to approximately 10 mm on the prior examination. Advanced facet hypertrophic changes present at this level, unchanged. No pars defects are noted. Moderate to advanced degenerative change of the facet joints at L4-L5. Mild facet hypertrophic changes at the remainder of the levels. No enhancing mass or fluid collection. No paravertebral hematoma or inflammatory change. Muscle bulk unchanged. Visualized enhancing kidneys and liver are morphologically unremarkable. Gallbladder surgically absent. Moderate to advanced atherosclerotic disease of the abdominal aorta noted. IMPRESSION: 1. No CT evidence of an acute osseous abnormality. 2. Degenerative change with anterolisthesis of L5-S1, unchanged. Electronically signed by Hayde Fiore 04-14-2024 6:30 PM Discharge Plan Visit Data Chief Complaint: Back Injury/Pain Stated Complaint: BACK PAIN ED Provider: Keon Bray Discharge Problem: Intractable low back pain, Chronic back pain, Generalized weakness Patient Disposition: Admitted As Inpatient Discharge Instructions Interventions: ED Discharge Assessment Last Done: 04/14/24 21:25 Discharge Problem: Chronic back pain Qualifiers: Back pain location: low back pain Back pain laterality: right Sciatica presence: unspecified whether sciatica present Qualified Code(s): M54.50 - Low back pain, unspecified
[2024-04-14] MEDS: ACETAMINOPHEN 1,000 MG/100 ML VIAL IV STA (18:09)
[2024-04-14] MEDS: LIDOCAINE 5% 1 PATCH TD STA (18:10)
[2024-04-14] MEDS: SODIUM CHLORIDE 0.9% 500 ML IV ONE (18:10)
[2024-04-14] MEDS: dexAMETHasone**PF** 10 MG/ML VIAL IV ONE (18:10)
--- NOTE | 2024-04-14 18:21 | CT Scan Report ---
Technique: Axial computed tomography images were obtained of the abdomen and pelvis after the administration of intravenous contrast. Comparison is made to the prior CT dated 09/17/2022. Findings: The liver is overall of normal size, attenuation, and contour with no sign of cirrhosis or significant fatty infiltration. No liver mass lesion is seen. The portal vein is patent. The gallbladder has been removed. No bile duct dilatation is noted. The spleen is of normal size. No focal splenic lesion is evident. The pancreas appears normal with no sign of acute or chronic pancreatitis and no mass lesion noted. The pancreatic duct is of normal caliber. The adrenal glands appear unremarkable. No definite renal or proximal ureteral calculi are seen on this contrast-enhanced study. There is no hydronephrosis or perinephric stranding. No renal mass lesion is identified. There are bilateral renal cysts, measuring up to 1.2 cm. The aorta is of normal caliber. No abdominal adenopathy is seen. The stomach appears normal. There is no sign of small bowel obstruction. There is diverticulosis without evidence of diverticulitis. No free intraperitoneal fluid or air is identified. No distal ureteral or bladder calculi are seen. No bladder mass lesion is evident. The iliac arteries are of normal caliber. No pelvic adenopathy is noted. There is a 3.2 cm enhancing uterine leiomyoma. There are small bilateral inguinal hernias containing fat There are small bilateral pleural effusions. There is bilateral lower lobe atelectasis. The heart is enlarged. Pacemaker leads are present Mild lumbar scoliosis and degenerative disc disease is seen. There is grade 2 anterolisthesis at L5-S1 Impression: 1. Small bilateral pleural effusions 2. Small bilateral renal cysts 3. Diverticulosis without evidence of diverticulitis 4. Uterine leiomyoma Electronically signed by Eduard Mcneill 04-14-2024 6:21 PM
--- NOTE | 2024-04-14 18:31 | CT Scan Report ---
EXAMINATION: CT lumbar spine with contrast CLINICAL HISTORY: Acute on chronic lower back pain PRIORS: CT lumbar spine 09/17/2022 TECHNIQUE: Contiguous axial images were obtained through the thoracic spine with the use of intravenous contrast FINDINGS: Moderate osseous demineralization noted. Vertebral body heights are maintained with no high-grade compression fracture. Approximately 8.5 mm of anterolisthesis of L5 on S1 is present which compares to approximately 10 mm on the prior examination. Advanced facet hypertrophic changes present at this level, unchanged. No pars defects are noted. Moderate to advanced degenerative change of the facet joints at L4-L5. Mild facet hypertrophic changes at the remainder of the levels. No enhancing mass or fluid collection. No paravertebral hematoma or inflammatory change. Muscle bulk unchanged. Visualized enhancing kidneys and liver are morphologically unremarkable. Gallbladder surgically absent. Moderate to advanced atherosclerotic disease of the abdominal aorta noted. IMPRESSION: 1. No CT evidence of an acute osseous abnormality. 2. Degenerative change with anterolisthesis of L5-S1, unchanged. Electronically signed by Hayde Fiore 04-14-2024 6:30 PM
[2024-04-14 18:52] LABS: Magnesium 1.9 mg/dl (1.7-2.4)
[2024-04-14 18:58] LABS: Creatine Kinase 54 U/L (26-192); Phosphorus 3.8 mg/dl (2.5-4.9)
[2024-04-14 19:32] LABS: Thyroid Stimulating Hormone 1.277 uIu/ml (0.300-4.500)
[2024-04-14] MEDS: MoRPHine SULFATE 2 MG/ML CARP IV STA (19:42)
--- NOTE | 2024-04-14 19:58 | History & Physical Report ---
Date of Service April 14, 2024 Assessment & Plan (1) Acute on chronic back pain: Plan 83-year-old female PMHx HTN, permanent A-fib on Eliquis, pulmonary HTN, combined heart failure, OP, dyslipidemia, essential tremor, and GERD who presents to ED for worsening back pain x 1 week. States that she has back pain at baseline that is normally well-managed, however the past week the pain has been worsening and she has been feeling overall weak because of the sudden worsening of pain. L umbar spine CT without acute changes but does reveal degenerative changes with anterolisthesis of L5-S1 which has been present since 2019. Other findings of note, AST on admission was 68, but patient has had elevated AST in the past. She was denying any abdominal pain and CTAP with no acute findings. On admission, BUN/creatinine ratio was 46.3 but patient admits to poor oral intake over the past week secondary to the pain. #Acute on chronic intractable back pain Back pain starting "weeks ago", but has worsened over the past few days. 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 No recent trauma, w/o numbness/tingling, saddle anesthesia, or incontinence of bowel/bladder. W/o midline tenderness and negative leg raise. No findings suggestive of infection, no evidence of fracture. - Lumbar spine CT w/ no acute osseous abnormalities, degenerative changes w/ anterolisthesis of L5-S1 which is unchanged since 2019 - Fall precautions, heating pad, lidocaine patch, pain management as ordered- Pt previously utilized Morphine and states that this was beneficial and was w/o interactions so morphine reordered - Flexeril prn at night; Dexamethasone x 1 given in ED, no further steroids provided #A-fib, permanent, on anticoagulation Previous history of permanent A-fib, on apixaban. Rate controlled at time of admission, regular rhythm on exam. 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 Please excuse any grammatical errors that may be secondary to use of this software. Admission and Anticipated Discharge Date Admission Date: 04/14/2024 History of Present Illness Chief Complaint: Back pain Primary Care Provider: Mansi Feliciano DO 83-year-old female PMHx HTN, permanent A-fib on Eliquis, pulmonary HTN, combined heart failure, OP, dyslipidemia, essential tremor, and GERD who presents to ED for worsening back pain x 1 week. States that she has back pain at baseline that is normally well-managed, however the past week the pain has been worsening and she has been feeling overall weak because of the sudden worsening of pain. Patient states that the pain comes and goes, and is currently 7 out of 10 on the pain scale but at its maximum is a 10 out of 10 on the pain scale. It is located around level of the waist, and localized mainly to the lower back but feels as though it does spread throughout her entire back at times. States that nothing has improved this pain except for rest, and that movement aggravates the pain. Denying saddle anesthesia, incontinence of bowel or bladder, or leg weakness. Patient states that she is able to ambulate but this does cause her pain as well. Does not have shooting sensation down her legs. Denies recent trauma or injury to the back. No recent falls. Pt w/o red flag symptoms during questioning at time of admission. Otherwise denying chest pain, shortness of breath, palpitations, abdominal pain, N/V/D/C, new numbness/tingling, LUTS, or fever/chills. Patient did not receive a.m. medications, however we will provide her with her p.m. medications. Please see Dr. Fleming's attestation for adjustments/additions to treatment plan. Allergies Allergy/AdvReac Type Severity Reaction Status Date / Time Sulfa (Sulfonamide Allergy Mild rash Verified 03/17/24 10:05 Antibiotics) tramadol AdvReac Severe Hallucinati Verified 03/17/24 10:05 ng simvastatin AdvReac Mild HEADACHE Verified 03/17/24 10:05 baclofen AdvReac Unknown disorientat Verified 03/17/24 10:05 ion lactose AdvReac Unknown Gastrointestinal Verified 03/17/24 10:05 Upset Home Medications Medication Instructions Recorded Confirmed Type multivitamin (Multiple Vitamins 1 tab PO DAILY 10/01/18 04/14/24 History tablet) polyethylene glycol 3350 17 17 g PO DAILY PRN Constipation 12/12/20 04/14/24 History gram/dose oral powder (Miralax) latanoprost 0.005 % eye drops 1 drp OPB QAM 09/17/22 04/14/24 History timolol maleate 0.5 % eye drops 1 drp OPB QPM 01/07/23 04/14/24 History metoprolol succinate 50 mg 100 mg (2 x 50 mg) PO BID #360 tabs 04/23/23 04/14/24 Rx tablet,extended release 24 hr primidone 50 mg tablet 50 mg PO TID #270 tabs 04/23/23 04/14/24 Rx mirtazapine 15 mg tablet 7.5 mg (1/2 x 15 mg) PO HS #45 tabs 05/26/23 04/14/24 Rx lubiprostone 24 mcg capsule 24 mcg PO QPM #90 caps 11/07/23 04/14/24 Rx (Amitiza) omeprazole 20 mg capsule,delayed 20 mg PO DAILY PRN Acid Reflux #90 12/25/23 04/14/24 Rx release caps furosemide 40 mg tablet (Lasix) 40 mg PO 2XWK 01/14/24 04/14/24 History amiodarone 200 mg tablet 200 mg PO QAM 03/10/24 04/14/24 History pravastatin 10 mg tablet 10 mg PO QAM #90 tabs 03/15/24 04/14/24 Rx digoxin 125 mcg (0.125 mg) tablet 125 mcg PO Q2D #45 tabs 03/23/24 04/14/24 Rx apixaban 2.5 mg tablet 2.5 mg PO BID #180 tabs 03/26/24 04/14/24 Rx potassium chloride 20 mEq oral 20 meq PO QAM #90 ea 03/26/24 04/14/24 Rx packet ipratropium bromide 21 mcg (0.03 1 spray intranasal QAM 04/14/24 04/14/24 History %) nasal spray tapentadol 50 mg tablet (Nucynta) 50 mg PO BID PRN Headache 04/14/24 04/14/24 History Past Med/Surg History Problem List Acute on chronic back pain Thoracic facet syndrome Diarrhea Pacemaker On amiodarone therapy Chronic thoracic back pain (Chronic) Pulmonary hypertension Chronic back pain (Acute) History of breast cancer Permanent atrial fibrillation Body mass index (BMI) less than 19 in adult Oropharyngeal dysphagia Valvular heart disease Thoracic facet syndrome (Chronic) Chronic combined systolic (congestive) and diastolic (congestive) heart failure Osteoporosis Cervical radiculopathy Arteriosclerosis of carotid artery Benign familial tremor Dyslipidemia History of SCC (squamous cell carcinoma) of skin History of ventricular tachycardia Insomnia Lichen sclerosus et atrophicus Prolapse of vaginal conklin Essential tremor (Chronic) GERD (gastroesophageal reflux disease) HTN (hypertension) Medical History senior care (current) use of anticoagulants Pacemaker follows with Dr Carroll Oropharyngeal dysphagia History of breast cancer "Soft detected left breast mass Status post ultrasound-guided core needle biopsy 02/07/2017 revealing invasive carcinoma grade 1, patient is unsure of specific treatment, records state lumpectomy left Pulmonary hypertension Valvular heart disease Osteoporosis History of ventricular tachycardia 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 GERD (gastroesophageal reflux disease) Chronic combined systolic (congestive) and diastolic (congestive) heart failure follows with Dr Carroll Cervical radiculopathy Dyslipidemia Hypertension Benign familial tremor Arteriosclerosis of carotid artery Pessary maintenance Size 6 pessary AF (paroxysmal atrial fibrillation) Eliquis, follows with Dr Carroll Atrial flutter, paroxysmal Thoracic back pain Surgical History Status post left breast lumpectomy 03/17/17 Status post ablation of ventricular arrhythmia History of removal of ovarian cyst History of tonsillectomy and adenoidectomy Hx of cholecystectomy H/O cardiac radiofrequency ablation Family History Aunt Tremor Mother Cardiac disorder Father Cardiac disorder Family/Other Breast cancer Denies family history of Ovarian cancer Prostate cancer Myocardial infarction Colorectal cancer Social History Smoking Status: Never smoker Second Hand Exposure: No; Do You Dip or Chew Tobacco: No; Hx Alcohol Use: No Hx Substance Use: No Preferred Language: Stateless Communication Ability: Effective Visual Impairment: Limited Hearing Ability: Hard of Hearing 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 Required: No Beliefs That Will Affect Care: None marital status: Current Living Situation: Spouse Current Living Situation Comment: lives at home with current occupational status: retired How many Children do You have: 3 Other Information That Helps Us Care for You: No Feels Safe at Home: Yes Safety Concerns: Feels Safe At This Time Childhood Exposure to Second-Hand Smoke: Yes caffeine: Yes Dental Care, Regularly: Yes Physical Activity Frequency: Does not Exercise Seatbelt Use: always Sunscreen Use: Yes Assistive Devices: Walker Review of Systems Review of Systems: All systems reviewed & are unremarkable except as noted in Subjective Physical Exam Physical Exam: General: No acute distress Skin: Warm and dry, without rashes or lesions Head: Normocephalic, atraumatic Eyes: PERRL, conjunctivae clear, sclera non-icteric ENT: External ear and ear canal without swelling; nose atraumatic; good dentition, tongue normal appearance, oropharynx appears dry Neck: Supple, no LAD Cardio: RRR, no M/G/R, S1 and S2 normal Resp: No respiratory distress, Lungs CTA in all lobes bilaterally, no wheezes, rales, or rhonchi Abdomen: Soft, symmetric, nontender; no distention; No masses or hepatosplenomegaly; Bowel sounds normoactive MSK: No deformities, full ROM throughout; Negative straight leg raise bilaterally; No tenderness to palpation at midline, mild tenderness to palpation lumbar paraspinal muscles; pulses palpable and equal; no edema. Neuro: Awake, alert; Muscle strength 4/5 bilaterally in UE/LE; Sensation intact bilaterally; CN grossly intact Psych: Appropriate mood and affect; good judgement and insight. 2 family members present in room at time of visit. Results & Data Results & Data Vital Signs (Past 12 Hours) Vital Signs Temp Pulse Resp BP Pulse Ox O2 Del Method 04/14/24 15:44 36.5 C 63 20 221/77 H 99 Room Air Laboratory Results 04/14/24 16:28 WBC 7.54 RBC 4.23 Hgb 13.2 Hct 39.3 MCV 92.9 MCH 31.2 MCHC 33.6 RDW Std Deviation 46.7 H RDW Coeff of [place] 13.7 Plt Count 330 MPV 10.1 Immature Gran % (Auto) 0.4 Neut % (Auto) 70.7 Lymph % (Auto) 19.1 Ross % (Auto) 7.8 Eos % (Auto) 1.2 Baso % (Auto) 0.8 Neut # (Auto) 5.33 Lymph # (Auto) 1.44 Ross # (Auto) 0.59 Eos # (Auto) 0.09 Baso # (Auto) 0.06 Immature Gran # (Auto) 0.03 Sodium 139 Potassium 4.2 Chloride 100 Carbon Dioxide 32 Anion Gap 7 BUN 31 H Creatinine 0.67 Est Cr Clr Drug Dosing Not Reportable eGFR 86.13 BUN/Creatinine Ratio 46.3 H Glucose 102 H Calcium 9.2 Phosphorus 3.8 Magnesium 1.9 Total Bilirubin 0.7 AST 68 H ALT 48 Alkaline Phosphatase 75 Total Creatine Kinase 54 Total Protein 7.1 Albumin 3.8 Globulin 3.3 Albumin/Globulin Ratio 1.2 TSH 1.277 Diagnostic Findings Abdomen/Pelvis CT 04/14/24 17:39 Technique: Axial computed tomography images were obtained of the abdomen and pelvis after the administration of intravenous contrast. Comparison is made to the prior CT dated 09/17/2022. Findings: The liver is overall of normal size, attenuation, and contour with no sign of cirrhosis or significant fatty infiltration. No liver mass lesion is seen. The portal vein is patent. The gallbladder has been removed. No bile duct dilatation is noted. The spleen is of normal size. No focal splenic lesion is evident. The pancreas appears normal with no sign of acute or chronic pancreatitis and no mass lesion noted. The pancreatic duct is of normal caliber. The adrenal glands appear unremarkable. No definite renal or proximal ureteral calculi are seen on this contrast-enhanced study. There is no hydronephrosis or perinephric stranding. No renal mass lesion is identified. There are bilateral renal cysts, measuring up to 1.2 cm. The aorta is of normal caliber. No abdominal adenopathy is seen. The stomach appears normal. There is no sign of small bowel obstruction. There is diverticulosis without evidence of diverticulitis. No free intraperitoneal fluid or air is identified. No distal ureteral or bladder calculi are seen. No bladder mass lesion is evident. The iliac arteries are of normal caliber. No pelvic adenopathy is noted. There is a 3.2 cm enhancing uterine leiomyoma. There are small bilateral inguinal hernias containing fat There are small bilateral pleural effusions. There is bilateral lower lobe atelectasis. The heart is enlarged. Pacemaker leads are present Mild lumbar scoliosis and degenerative disc disease is seen. There is grade 2 anterolisthesis at L5-S1 Impression: 1. Small bilateral pleural effusions 2. Small bilateral renal cysts 3. Diverticulosis without evidence of diverticulitis 4. Uterine leiomyoma Electronically signed by Eduard Mcneill 04-14-2024 6:[address] 04/14/24 17:39 EXAMINATION: CT lumbar spine with contrast CLINICAL HISTORY: Acute on chronic lower back pain PRIORS: CT lumbar spine 09/17/2022 TECHNIQUE: Contiguous axial images were obtained through the thoracic spine with the use of intravenous contrast FINDINGS: Moderate osseous demineralization noted. Vertebral body heights are maintained with no high-grade compression fracture. Approximately 8.5 mm of anterolisthesis of L5 on S1 is present which compares to approximately 10 mm on the prior examination. Advanced facet hypertrophic changes present at this level, unchanged. No pars defects are noted. Moderate to advanced degenerative change of the facet joints at L4-L5. Mild facet hypertrophic changes at the remainder of the levels. No enhancing mass or fluid collection. No paravertebral hematoma or inflammatory change. Muscle bulk unchanged. Visualized enhancing kidneys and liver are morphologically unremarkable. Gallbladder surgically absent. Moderate to advanced atherosclerotic disease of the abdominal aorta noted. IMPRESSION: 1. No CT evidence of an acute osseous abnormality. 2. Degenerative change with anterolisthesis of L5-S1, unchanged. Electronically signed by Hayde Fiore 04-14-2024 6:30 PM Medications Administered NSS 500mL IV Morphine sulfate 2g IV Lidocaine patch 1 TD Dexamethasone 10mg IV Acetaminophen 1g IV ECG Additional Comments: NSR, sinus arrhythmia Rate 64, CT 166, QRS 84, QT/QTc 384/396, PRT 113/51/246 Code Status & VTE Plan Code Status Full Supervising Physician Co-Signing Physician Notes Patient seen and examined, chart reviewed, case discussed with JOSE Marc and I agree with the assessment and plan as above. Patient with longstanding history of back pain for years - she has seen pain management both locally and in [place]. She reports worsening over the last several days. No trauma or falls, no neurologic complaints, bowel or bladder involvement. No fever or chills. Uncertain what has lead to acute worsening of back pain. On exam she is afebrile, HD stable Resting comfortably in bed Skin without rash HEENT - MMM, Neck supple Heart - +S1/S2, regular, no m/r/g Lungs - CTA Abd - soft, NT/ND Ext - warm, well perfused Labs and images reviewed Assessment/Plan Acute on chronic pack pain. No neurologic symptoms. Mg given -Admit to medical -Tylenol 1gm po TID scheduled -Lidoderm patch, Heat, Flexeril -Morphine PRN -PT/OT evaluation appreciated -Remainder as above PG Care Time/CCT Total # of Minutes Spent Total Time Spent with Patient: Total time spent is greater than 50% in coordination of care (as documented) at patient's floor/unit and/or counseling patient: Coding Level of Care Code 73125 INT INP/OBS CARE 3/75MIN Diagnoses Acute on chronic back pain M54.9; G89.29
[2024-04-14] MEDS: HYDROmorphone INJ 0.5 MG/0.5 ML SYR IV STA (20:56)
[2024-04-14] MEDS ORDERED: MoRPHine SULFATE 4 MG/ML 1 ML CARP\\VIAL IV PRN (21:52)
[2024-04-14] MEDS ORDERED: MoRPHine SULFATE 2 MG/ML CARP IV PRN (21:52)
[2024-04-14] MEDS ORDERED: ALUMINUM/MAGNESIUM SUSP 30 ML UDC PO PRN (21:52)
[2024-04-14] MEDS ORDERED: MoRPHine SULFATE IR 15 MG TAB (IMMEDIATE RELEASE) PO PRN (21:52)
[2024-04-14] MEDS ORDERED: TAPENTADOL HCL 50 MG TAB PO PRN (21:52)
[2024-04-14] MEDS ORDERED: POLYETHYLENE (MIRALAX) 17 GM PACK PO PRN (21:52)
[2024-04-14] MEDS ORDERED: ONDANSETRON INJ 2 MG/ML 2 ML VIAL IV PRN (21:52)
[2024-04-14] MEDS ORDERED: Patient's HEIGHT &/or WEIGHT Needed SCH (22:30)
[2024-04-14] MEDS: MAGNESIUM SULFATE / D5W 1 GM/100 ML BAG IV STA (22:45)
[2024-04-14] MEDS: METOPROLOL SUCC 50MG EXT REL TAB PO SCH (22:49)
[2024-04-14] MEDS: LUBIPROSTONE 8 MCG CAP PO SCH (22:49)
[2024-04-14] MEDS: APIXABAN 2.5 MG TAB PO SCH (22:49)
[2024-04-14] MEDS: TIMOLOL MALEATE 0.5% OP SOLN 5 ML BTL OPB SCH (22:50)
[2024-04-14] MEDS: PRIMIDONE 50 MG TAB PO SCH (22:50)
[2024-04-14] MEDS: MIRTAZAPINE TAB 15 MG TAB PO SCH (22:50)
[2024-04-14] MEDS: DIGOXIN 0.125 MG TAB PO SCH (23:49)
[2024-04-15] MEDS: CYCLOBENZAPRINE HCL 5 MG TAB PO PRN (01:47)
--- NOTE | 2024-04-15 07:55 | Electrocardiogram Report ---
Test Reason : Blood Pressure : */* mmHG Vent. Rate : 64 BPM Atrial Rate : 64 BPM P-R Int : 166 ms QRS Dur : 84 ms QT Int : 384 ms P-R-T Axes : 113 51 246 degrees QTcB Int : 396 ms Poor data quality, interpretation may be adversely affected Normal sinus rhythm with sinus arrhythmia and atrial paced beats Abnormal ECG When compared with ECG of 25-Jan-2023 19:22, Sinus rhythm has replaced AV sequential or dual chamber electronic pacemaker Confirmed by Angel Santos ([id number]) on 04/15/2024 7:54:45 AM Referred By: Confirmed By: Angel Santos
[2024-04-15] MEDS: ACETAMINOPHEN 500 MG TAB PO SCH (08:41)
[2024-04-15] MEDS: LATANOPROST 0.005% OP SOLN 2.5 ML BTL OPB SCH (08:42)
[2024-04-15] MEDS: MULTIVITAMIN TAB PO SCH (08:42)
[2024-04-15] MEDS: PRAVASTATIN SOD 10 MG TAB PO SCH (08:42)
[2024-04-15] MEDS: POTASSIUM CHLORIDE PWD 20 MEQ PACK PO SCH (08:42)
[2024-04-15] MEDS: AMIODARONE 200 MG TAB PO SCH (08:42)
[2024-04-15] MEDS: LIDOCAINE 5% 1 PATCH TD SCH (08:43)
[2024-04-15 08:55] LABS: Appearance Urine Clear (Clear); Bacteria Urine Automated None Seen (None Seen); Bilirubin Urine Negative (Negative); Blood Urine Negative (Negative); Cast Urine Automated 0-2 /lpf (0-2); Color Urine Yellow; Glucose Urine UA Negative (Negative); Ketones Urine 2+ (Negative); Leukocyte Esterase Urine Trace (Negative); Nitrite Urine Negative (Negative); Protein Urine Trace (Negative); Specific Gravity Urine > 1.045 (1.000-1.030); Urobilinogen Urine Negative (Negative); WBC Urine Automated 0-5 /hpf (0-5)
[2024-04-15] MEDS ORDERED: ACETAMINOPHEN 500 MG TAB PO SCH (09:00)
[2024-04-15] MEDS: MoRPHine SULFATE 4 MG/ML 1 ML CARP\\VIAL IV PRN (12:48)
--- NOTE | 2024-04-15 17:04 | Hospitalist Progress Note ---
Date of Service April 15, 2024 Assessment & Plan (1) Acute on chronic back pain: Plan 83-year-old female PMHx HTN, permanent A-fib on Eliquis, pulmonary HTN, combined heart failure, OP, dyslipidemia, essential tremor, and GERD who presents to ED for worsening back pain x 1 week. States that she has back pain at baseline that is normally well-managed, however the past week the pain has been worsening and she has been feeling overall weak because of the sudden worsening of pain. L umbar spine CT without acute changes but does reveal degenerative changes with anterolisthesis of L5-S1 which has been present since 2019. Other findings of note, AST on admission was 68, but patient has had elevated AST in the past. She was denying any abdominal pain and CTAP with no acute findings. On admission, BUN/creatinine ratio was 46.3 but patient admits to poor oral intake over the past week secondary to the pain. #Acute on chronic intractable back pain Back pain starting "weeks ago", but has worsened over the past few days. 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 No recent trauma, w/o numbness/tingling, saddle anesthesia, or incontinence of bowel/bladder. W/o midline tenderness and negative leg raise. No findings suggestive of infection, no evidence of fracture. - Lumbar spine CT w/ no acute osseous abnormalities, degenerative changes w/ anterolisthesis of L5-S1 which is unchanged since 2019 - Fall precautions, heating pad, lidocaine patch, pain management as ordered- Pt previously utilized Morphine and states that this was beneficial and was w/o interactions so morphine reordered - Flexeril prn at night; Dexamethasone x 1 given in ED, no further steroids provided - PT recommending patient safe to return home w/ spouse on d/c. - discussed with CM and they are to discuss w/ family home health PT/OT for patient. - consulted pain management, appreciate recommendations. #A-fib, permanent, on anticoagulation Previous history of permanent A-fib, on apixaban. Rate controlled at time of admission, regular rhythm on exam. 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 Admission and Anticipated Discharge Date Admission Date: April 14, 2024 Subjective Patient seen and examined this morning. Patient resting comfortably in bed at time of encounter. Patient rated her mid back pain at 7/10 on pain scale. Reports worse with lying down. Physical Exam Constitutional: WD/WN, vitals as above Eyes: PERRL, conjunctivae normal, anicteric sclerae Respiratory: normal respiratory effort, lungs clear to auscultation Cardiovascular: RRR, no murmur, no edema Results & Data Results & Data Vital Signs (Past 12 Hours) Vital Signs Temp Pulse Resp BP Pulse Ox O2 Del Method 04/15/24 15:40 36.5 C 60 18 169/76 H 97 Room Air 04/15/24 09:16 Room Air 04/15/24 07:08 36.5 C 60 16 166/74 H 98 Room Air PG Care Time/CCT Total # of Minutes Spent Total Time Spent with Patient: Total time spent is greater than 50% in coordination of care (as documented) at patient's floor/unit and/or counseling patient: Coding Level of Care Code 47497 SUB INP/OBS CARE 2/35MIN Diagnoses Acute on chronic back pain M54.9; G89.29
[2024-04-15] MEDS: MoRPHine SULFATE 2 MG/ML CARP IV PRN (21:10)
[2024-04-16] MEDS: MELATONIN 3 MG TAB PO PRN (01:15)
[2024-04-16] MEDS: FUROSEMIDE 40 MG TAB PO SCH (07:50)
[2024-04-16] MEDS: PANTOprazole 40 MG TAB PO PRN (07:52)
--- NOTE | 2024-04-16 14:36 | Pain Management Consultation ---
Date of Consultation April 16, 2024 Assessment & Plan (1) Thoracic facet syndrome: (2) Acute on chronic back pain: (3) Chronic thoracic back pain: Back pain laterality: unspecified Qualified Code(s): M54.6 - Pain in thoracic spine; G89.29 - Other chronic pain (4) Generalized weakness: Plan 1. Patient's pain appears to be most consistent with her well-established thoracic facet syndrome. Most recent updated imaging failed to reveal any obvious change to her prior imaging findings. She did have an intra-articular facet joint injection in January which did provide significant relief of her typical pain potentially providing 2-3 months of relief. Will recommend she undergo repeat left-sided T9-10 and T10-11 intra-articular facet joint injection. She is a poor candidate to pursue ablation due to her history of being atrially paced. We will tentatively plan for Friday for this procedure in the office setting as long as cardiology is on board with her ability to safely hold her apixaban therapy with last dose for 04/17/2024. Hospitalist service will be updated. 2. Will recommend she trial Nucynta 100 mg every 6 hours for as needed breakthrough pain. Would recommend she hold on further use of IV morphine and attempt to determine efficacy and tolerability of Nucynta therapy. She may reserve IV morphine for pain not well-controlled with Nucynta 3. Continue with bowel regimen and attempt to avoid opioid-induced constipation 4. Would recommend participation in OT/PT for gait training and strengthening 5. Further recommendations pending response to above. History of Present Illness Reason for Consultation: Intractable left-sided thoracic back pain Requesting Physician: LISA Jackson Attending Physician: Ceasar Hinkle History of Present Illness Mrs. Villafana is an 83-year-old white female who was admitted due to intractable left-sided thoracic back pain. Her pain complaints are acute on chronic as she has had chronic difficulty with pain which is localized to the left lower thoracic region similar in location and characteristic as prior. Patient most recently underwent a left-sided T9-10 and T10-11 intra-articular facet joint injection on 01/12/2024. She was planned for ablation but is unfortunately 100% atrially paced and therefore ablation is deemed to be unsafe. She reported minimal pain at the time of the facet injection although did report 90% improvement in her pain at time of her follow-up visit on 02/24/2024. Patient indicated that her pain was improved for approximately 2 months after the intra- articular facet joint procedure with some gradual recurrence. Her pain has been increased a little bit more over the past few weeks which led to this hospital admission. She had been utilizing some Nucynta at home 50 mg which she reports was diminishing her pain by 50%. She is tolerating medication without notable side effects. She has been relying on IV morphine upon this admission which does provide significant relief of her symptoms but does contribute to sedation. The patient has previously failed Lidoderm patch and anticonvulsant therapies. She is also previously failed Tylenol with codeine and hydrocodone. These medications either contribute the side effect profile or poor efficacy. Her pain is localized to 100% axial to the left lower thoracic region without radiation. She has no pain traveling to the lateral or anterior chest wall. She has no lumbar pain or lumbar radicular pattern to her pain. She denies any increased pain with deep breathing, coughing or sneezing. Plan of care discussed with Dr. Kelly. Pain Assessment Full Body Front + Back: 2 1. Left lower thoracic axial pain Pain scale - at its best (0-10): 3 Pain scale - at its worst (0-10): 8 Allergies Allergy/AdvReac Type Severity Reaction Status Date / Time Sulfa (Sulfonamide Allergy Mild rash Verified 03/17/24 10:05 Antibiotics) tramadol AdvReac Severe Hallucinati Verified 03/17/24 10:05 ng simvastatin AdvReac Mild HEADACHE Verified 03/17/24 10:05 baclofen AdvReac Unknown disorientat Verified 03/17/24 10:05 ion lactose AdvReac Unknown Gastrointestinal Verified 03/17/24 10:05 Upset Home Medications Medication Instructions Recorded Confirmed Type multivitamin (Multiple Vitamins 1 tab PO DAILY 10/01/18 04/19/24 History tablet) polyethylene glycol 3350 17 17 g PO DAILY PRN Constipation 12/12/20 04/19/24 History gram/dose oral powder (Miralax) latanoprost 0.005 % eye drops 1 drp OPB QAM 09/17/22 04/19/24 History timolol maleate 0.5 % eye drops 1 drp OPB QPM 01/07/23 04/19/24 History metoprolol succinate 50 mg 100 mg (2 x 50 mg) PO BID #360 tabs 04/23/23 04/19/24 Rx tablet,extended release 24 hr primidone 50 mg tablet 50 mg PO TID #270 tabs 04/23/23 04/19/24 Rx mirtazapine 15 mg tablet 7.5 mg (1/2 x 15 mg) PO HS #45 tabs 05/26/23 04/19/24 Rx lubiprostone 24 mcg capsule 24 mcg PO QPM #90 caps 11/07/23 04/19/24 Rx (Amitiza) omeprazole 20 mg capsule,delayed 20 mg PO DAILY PRN Acid Reflux #90 12/25/23 04/19/24 Rx release caps furosemide 40 mg tablet (Lasix) 40 mg PO 2XWK 01/14/24 04/19/24 History amiodarone 200 mg tablet 200 mg PO QAM 03/10/24 04/19/24 History pravastatin 10 mg tablet 10 mg PO QAM #90 tabs 03/15/24 04/19/24 Rx digoxin 125 mcg (0.125 mg) tablet 125 mcg PO Q2D #45 tabs 03/23/24 04/19/24 Rx apixaban 2.5 mg tablet 2.5 mg PO BID #180 tabs 03/26/24 04/19/24 Rx potassium chloride 20 mEq oral 20 meq PO QAM #90 ea 03/26/24 04/19/24 Rx packet ipratropium bromide 21 mcg (0.03 1 spray intranasal QAM 04/14/24 04/19/24 History %) nasal spray tapentadol 50 mg tablet (Nucynta) 100 mg (2 x 50 mg) PO Q6H PRN pain 04/17/24 04/19/24 Rx #30 tabs Pain History Pain Intensity Pain scale - at its best (0-10): 3 Pain scale - at its worst (0-10): 8 Patient History 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) use of anticoagulants Pacemaker follows with Dr Carroll Oropharyngeal dysphagia History of breast cancer "Soft detected left breast mass Status post ultrasound-guided core needle biopsy 02/07/2017 revealing invasive carcinoma grade 1, patient is unsure of specific treatment, records state lumpectomy left Pulmonary hypertension Valvular heart disease Osteoporosis History of ventricular tachycardia 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 GERD (gastroesophageal reflux disease) Chronic combined systolic (congestive) and diastolic (congestive) heart failure follows with Dr Carroll Cervical radiculopathy Dyslipidemia Hypertension Benign familial tremor Arteriosclerosis of carotid artery Pessary maintenance Size 6 pessary AF (paroxysmal atrial fibrillation) Eliquis, follows with Dr Carroll Atrial flutter, paroxysmal Thoracic back pain Surgical History Status post left breast lumpectomy 03/17/17 Status post ablation of ventricular arrhythmia History of removal of ovarian cyst History of tonsillectomy and adenoidectomy Hx of cholecystectomy H/O cardiac radiofrequency ablation Family History Aunt Tremor Mother Cardiac disorder Father Cardiac disorder Family/Other Breast cancer Denies family history of Ovarian cancer Prostate cancer Myocardial infarction Colorectal cancer Social History Smoking Status: Never smoker Second Hand Exposure: No; Do You Dip or Chew Tobacco: No; Hx Alcohol Use: No Hx Substance Use: No Preferred Language: Setswana Communication Ability: Effective Visual Impairment: Limited Hearing Ability: Hard of Hearing Rn Critical Care Required: No Beliefs That Will Affect Care: None marital status: Current Living Situation: Spouse Current Living Situation Comment: lives at home with current occupational status: retired How many Children do You have: 3 Feels Safe at Home: Yes Childhood Exposure to Second-Hand Smoke: Yes caffeine: Yes Dental Care, Regularly: Yes Physical Activity Frequency: Does not Exercise Seatbelt Use: always Sunscreen Use: Yes Assistive Devices: Walker Physical Exam 2 Physical Exam: General: Speech and thought process appropriate. Mood and affect appropriate. Cognition intact. Patient somewhat sedate. Patient lying quietly in the exam room accompanied by her and daughter. Head: Normocephalic and atraumatic. ENT: No evidence of nasal or oral mucosal lesions. Mucous membranes are moist. Eyes: Pupils equal round reactive to light. Chest: Nontender to palpation of the costosternal junction. Nontender with AP/lateral compression of the chest wall. Thoracic spine: Nontender over the midline. Nontender to palpation or percussion. Patient is tender over the left thoracic facet joint location at approximate level of T8-T10 versus T9-T11. Nontender over the thoracic paravertebral musculature. Abdomen: Soft and nondistended. No organomegaly. Bowel sounds active. Neurologic: Cranial nerves grossly intact. Ambulatory function normal. Results (Pain Clinic) Diagnostic Review CT Findings: [place], [place] [phone] CT Scan Report Patient: MARII VILLAFANA Admit Date: 04/14/24 MR#: [id number] Address1: [address] [place] [address] Acct ID:[id number] Address2: Date: 1940 [facility] Zip: [place] [address] Age: 83 Location: ED Sex: F Room/Bed: Att Phy: Diagnosis: BACK PAIN Kelley Phy: Mansi Feliciano DO Service Date: 04/14/24 [facility] Phy: Interpreting Phy: Hayde Fiore MDAdmit Phy: Ordering Phy: Keon Bray M.D. cc: ~ EXAMINATION: CT lumbar spine with contrast CLINICAL HISTORY: Acute on chronic lower back pain PRIORS: CT lumbar spine 09/17/2022 TECHNIQUE: Contiguous axial images were obtained through the thoracic spine with the use of intravenous contrast FINDINGS: Moderate osseous demineralization noted. Vertebral body heights are maintained with no high-grade compression fracture. Approximately 8.5 mm of anterolisthesis of L5 on S1 is present which compares to approximately 10 mm on the prior examination. Advanced facet hypertrophic changes present at this level, unchanged. No pars defects are noted. Moderate to advanced degenerative change of the facet joints at L4-L5. Mild facet hypertrophic changes at the remainder of the levels. No enhancing mass or fluid collection. No paravertebral hematoma or inflammatory change. Muscle bulk unchanged. Visualized enhancing kidneys and liver are morphologically unremarkable. Gallbladder surgically absent. Moderate to advanced atherosclerotic disease of the abdominal aorta noted. IMPRESSION: 1. No CT evidence of an acute osseous abnormality. 2. Degenerative change with anterolisthesis of L5-S1, unchanged. Electronically signed by Hayde Fiore 04-14-2024 6:30 PM Dictated: 04/14/24 1801 Transcribed: [place], [place] [phone] CT Scan Report Patient: MAIRI VILLAFANA Admit Date: 04/14/24 MR#: [id number] Address1: [address] [place] [address] Acct ID:[id number] Address2: Date: 1940 [facility] Zip: [place] [address] Age: 83 Location: ED Sex: F Room/Bed: Att Phy: Diagnosis: BACK PAIN Kelley Phy: Mansi Feliciano SDO Cinthya Service Date: 04/14/24 [facility] Phy: Interpreting Phy: Eduard Mcneill MDAdmit Phy: Ordering Phy: Keon Bray M.D. cc: ~ Technique: Axial computed tomography images were obtained of the abdomen and pelvis after the administration of intravenous contrast. Comparison is made to the prior CT dated 09/17/2022. Findings: The liver is overall of normal size, attenuation, and contour with no sign of cirrhosis or significant fatty infiltration. No liver mass lesion is seen. The portal vein is patent. The gallbladder has been removed. No bile duct dilatation is noted. The spleen is of normal size. No focal splenic lesion is evident. The pancreas appears normal with no sign of acute or chronic pancreatitis and no mass lesion noted. The pancreatic duct is of normal caliber. The adrenal glands appear unremarkable. No definite renal or proximal ureteral calculi are seen on this contrast-enhanced study. There is no hydronephrosis or perinephric stranding. No renal mass lesion is identified. There are bilateral renal cysts, measuring up to 1.2 cm. The aorta is of normal caliber. No abdominal adenopathy is seen. The stomach appears normal. There is no sign of small bowel obstruction. There is diverticulosis without evidence of diverticulitis. No free intraperitoneal fluid or air is identified. No distal ureteral or bladder calculi are seen. No bladder mass lesion is evident. The iliac arteries are of normal caliber. No pelvic adenopathy is noted. There is a 3.2 cm enhancing uterine leiomyoma. There are small bilateral inguinal hernias containing fat There are small bilateral pleural effusions. There is bilateral lower lobe atelectasis. The heart is enlarged. Pacemaker leads are present Mild lumbar scoliosis and degenerative disc disease is seen. There is grade 2 anterolisthesis at L5-S1 Impression: 1. Small bilateral pleural effusions 2. Small bilateral renal cysts 3. Diverticulosis without evidence of diverticulitis 4. Uterine leiomyoma Electronically signed by Eduard Mcneill 04-14-2024 6:21 PM Dictated: 04/14/24 [id number] Transcribed: Previous Records Review Previous Records: personally reviewed by
[2024-04-16 15:38] VITALS: PULSE 60
--- NOTE | 2024-04-16 16:49 | Hospitalist Progress Note ---
Date of Service April 16, 2024 Assessment & Plan (1) Acute on chronic back pain: Plan 83-year-old female PMHx HTN, permanent A-fib on Eliquis, pulmonary HTN, combined heart failure, OP, dyslipidemia, essential tremor, and GERD who presents to ED for worsening back pain x 1 week. States that she has back pain at baseline that is normally well-managed, however the past week the pain has been worsening and she has been feeling overall weak because of the sudden worsening of pain. Lumbar spine CT without acute changes but does reveal degenerative changes with anterolisthesis of L5-S1 which has been present since 2019. Other findings of note, AST on admission was 68, but patient has had elevated AST in the past. She was denying any abdominal pain and CTAP with no acute findings. On admission, BUN/creatinine ratio was 46.3 but patient admits to poor oral intake over the past week secondary to the pain. #Acute on chronic intractable back pain Back pain starting "weeks ago", but has worsened over the past few days. Patient does follow with pain management as outpatient, but recent worsening started ~ 1 week [employer]. No recent trauma, w/o numbness/tingling, saddle anesthesia, or incontinence of bowel/bladder. W/o midline tenderness and negative leg raise. No findings suggestive of infection, no evidence of fracture. - Lumbar spine CT w/ no acute osseous abnormalities, degenerative changes w/ anterolisthesis of L5-S1 which is unchanged since 2019 - Fall precautions, heating pad, lidocaine patch, pain management as ordered- Pt previously utilized Morphine and states that this was beneficial and was w/o interactions so morphine reordered - Flexeril prn at night; Dexamethasone x 1 given in ED, no further steroids provided - PT recommending patient safe to return home w/ spouse on d/c. - discussed with CM and they are to discuss w/ family home health PT/OT for patient. - consulted pain management, discussed with provider 04/16 - increase Nucynta to 100mg q6h prn for pain. Use morphine only for severe pain not controlled w/ Nucynta. - rec monitoring pain for 24 hours on new dose of Nucyenta prior to d/c. - Procedure planned on 04/21 w/ pain management. last dose of Eliquis 04/17 - cardiology was okay with Eliquis hold. #A-fib, permanent, on anticoagulation Previous history of permanent A-fib, on apixaban. Rate controlled at time of admission, regular rhythm on exam. 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 Patient reports to be in 10 pain in her back at time of my encounter. Aside from back pain she denied any further complaints today. Physical Exam Constitutional: WD/WN, vitals as above Eyes: PERRL, conjunctivae normal, anicteric sclerae Respiratory: breathing unlabored Cardiovascular: well perfused Results & Data Results & Data Vital Signs (Past 12 Hours) Vital Signs Temp Pulse Pulse Pulse Resp BP Pulse Ox 04/16/24 15:36 60 04/16/24 15:00 36.8 C 68 20 100 04/16/24 11:48 36.5 C 60 16 162/68 H 99 04/16/24 08:06 36.5 C 60 16 158/74 H 98 04/16/24 07:28 36.7 C 60 20 175/72 H 99 O2 Del Method 04/16/24 15:36 04/16/24 15:00 Room Air 04/16/24 11:48 Room Air 04/16/24 08:06 Room Air 04/16/24 07:28 Room Air PG Care Time/CCT Total # of Minutes Spent Total Time Spent with Patient: Total time spent is greater than 50% in coordination of care (as documented) at patient's floor/unit and/or counseling patient: Coding Level of Care Code 75665 SUB INP/OBS CARE 350MIN Diagnoses Acute on chronic back pain M54.9; G89.29
[2024-04-16] MEDS: TAPENTADOL HCL 50 MG TAB PO PRN (18:32)
[2024-04-16 19:16] VITALS: RESP 14
[2024-04-17 07:59] VITALS: BP 144/72; TEMP 97.7; O2SAT 97
--- NOTE | 2024-04-17 11:54 | Discharge Summary ---
Discharge Summary Date of Service April 17, 2024 Principal Dx & Hospital Course #1 = Principal Diagnosis (1) Acute on chronic back pain: Plan 83-year-old female PMHx HTN, permanent A-fib on Eliquis, pulmonary HTN, combined heart failure, OP, dyslipidemia, essential tremor, and GERD who presents to ED for worsening back pain x 1 week. States that she has back pain at baseline that is normally well-managed, however the past week the pain has been worsening and she has been feeling overall weak because of the sudden worsening of pain. Lumbar spine CT without acute changes but does reveal degenerative changes with anterolisthesis of L5-S1 which has been present since 2019. Other findings of note, AST on admission was 68, but patient has had elevated AST in the past. She was denying any abdominal pain and CTAP with no acute findings. On admission, BUN/creatinine ratio was 46.3 but patient admits to poor oral intake over the past week secondary to the pain. #Acute on chronic intractable back pain Back pain starting "weeks ago", but has worsened over the past few days. Patient does follow with pain management as outpatient, but recent worsening started ~ 1 week [employer] [employer]. No recent trauma, w/o numbness/tingling, saddle anesthesia, or incontinence of bowel/bladder. W/o midline tenderness and negative leg raise. No findings suggestive of infection, no evidence of fracture. - Lumbar spine CT w/ no acute osseous abnormalities, degenerative changes w/ anterolisthesis of L5-S1 which is unchanged since 2019 - Dexamethasone x 1 given in ED, no further steroids provided - PT recommending patient safe to return home w/ spouse on d/c. - consulted pain management, discussed with provider 04/16 - increase Nucynta to 100mg q6h prn for pain. Use morphine only for severe pain not controlled w/ Nucynta. - Procedure planned on 04/21 w/ pain management. last dose of Eliquis 04/17 - cardiology was okay with Eliquis hold. -patient required 2 doses of Nucynta after her consultation with pain management. She was discharged home recommending to take Tylenol around the clock and Nucynta for breakthrough pain. Updated Nucynta script sent to patient's pharmacy. #A-fib, permanent, on anticoagulation Previous history of permanent A-fib, on apixaban. Rate controlled at time of admission, regular rhythm on exam. 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 Admission HPI Per Admitting Provider 83-year-old female PMHx HTN, permanent A-fib on Eliquis, pulmonary HTN, combined heart failure, OP, dyslipidemia, essential tremor, and GERD who presents to ED for worsening back pain x 1 week. States that she has back pain at baseline that is normally well-managed, however the past week the pain has been worsening and she has been feeling overall weak because of the sudden worsening of pain. Patient states that the pain comes and goes, and is currently 7 out of 10 on the pain scale but at its maximum is a 10 out of 10 on the pain scale. It is located around level of the waist, and localized mainly to the lower back but feels as though it does spread throughout her entire back at times. States that nothing has improved this pain except for rest, and that movement aggravates the pain. Denying saddle anesthesia, incontinence of bowel or bladder, or leg weakness. Patient states that she is able to ambulate but this does cause her pain as well. Does not have shooting sensation down her legs. Denies recent trauma or injury to the back. No recent falls. Pt w/o red flag symptoms during questioning at time of admission. Otherwise denying chest pain, shortness of breath, palpitations, abdominal pain, N/V/D/C, new numbness/tingling, LUTS, or fever/chills. Patient did not receive a.m. medications, however we will provide her with her p.m. medications. Please see Dr. Fleming's attestation for adjustments/additions to treatment plan. Discharge Exam Constitutional WD/WN, vitals as above Eyes PERRL, conjunctivae normal, anicteric sclerae Respiratory breathing unlabored Cardiovascular well perfused Discharge Plan Discharge Items Patient Disposition: Home - Home Health Services Reason For Visit: ACUTE ON CHRONIC BACK PAIN Discharge Diagnosis: Acute on chronic back pain Activity: Resume your previous activity Non-emergency contact: Primary Care Provider Call non-emergency contact if: you have any medication questions, your symptoms worsen and your pain is not controlled Follow-up/Referrals: Mansi Feliciano DO [Primary Care Provider] - Diet: Regular Addtl Attending Provider Instructions: Mrs. Villafana, You were recently hospitalized for back pain. Your imaging was unchanged from prior studies. You were evaluated by pain management who made changes to your medications. 1. Please take either 1000mg of Tylenol every 8 hours or 650mg every 6 hours scheduled. 2. Please use Nucynta 100mg every 6 hours for breakthrough pain. 3. Your last dose of Eliquis will be this evening 04/17/2024 in anticipation of your procedure with pain management on 04/21 4. Please follow up with pain management as scheduled. 5. Please follow up with your PCP within 1-2 weeks of discharge. If you develop any uncontrollable pain, chest pain, or shortness of breath please report back to the ED for further care. Sincerely, Alana Elizondo PA-C Pending Studies at Discharge: No Stand-Alone Forms: [employer] Smoking Cessation Medications and DC Order Prescriptions: New Nucynta 50 mg Tablet 100 mg PO Q6H PRN (Reason: pain) Qty: 30 0RF Continued polyethylene glycol 3350 [Miralax] 17 gram/dose powder 17 g PO DAILY PRN (Reason: Constipation) metoprolol succinate 50 mg tablet extended release 24 hr 100 mg PO BID Qty: 360 3RF primidone 50 mg tablet 50 mg PO TID Qty: 270 3RF mirtazapine 15 mg tablet 7.5 mg PO HS Qty: 45 3RF lubiprostone [Amitiza] 24 mcg capsule 24 mcg PO QPM Qty: 90 1RF omeprazole 20 mg capsule,delayed release(DR/EC) 20 mg PO DAILY PRN (Reason: Acid Reflux) Qty: 90 1RF pravastatin 10 mg tablet 10 mg PO QAM Qty: 90 3RF digoxin 125 mcg (0.125 mg) tablet 125 mcg PO Q2D Qty: 45 3RF potassium chloride 20 mEq packet 20 meq PO QAM Qty: 90 3RF multivitamin [Multiple Vitamins] tablet 1 tab PO DAILY furosemide [Lasix] 40 mg tablet 40 mg PO [id number] Patient Comments: twice weekly Rx Instructions: friday and fridays latanoprost 0.005 % drops 1 drp OPB QAM timolol maleate 0.5 % drops 1 drp OPB QPM amiodarone 200 mg tablet 200 mg PO QAM ipratropium bromide 21 mcg (0.03 %) spray,non-aerosol 1 spray INTNAS QAM Rx Instructions: 1 DROP IN EACH EYE Held apixaban 2.5 mg tablet 2.5 mg PO BID Qty: 180 3RF Hold Instructions: Resume on 04/24/24. Please follow recommendations of resuming Eliquis at the discretion of pain management. Your last dose is this evening 04/17 prior to holding for your procedure on 04/21. Discontinued Nucynta 50 mg tablet 50 mg PO BID PRN (Reason: Headache) Discharge Orders: Discharge Order (Routine); Ordered 04/17/24 Ordered By: Alana Elizondo Admission Data Admit Date/Time: 04/16/24 14:32 Attending Provider: Ceasar Hinkle Admit Provider: Magdalena Fleming Primary Care Provider: Mansi Feliciano Other Providers: Magdalena Fleming; [facility]; Vinayak Strickland; Tiffany Simmons; Mikey Kelly; Pedro Choudhary; Ingrid Caldwell Other Interventions: Discharge Summary Assessment (RN) Last Done: 04/17/24 12:07 Hospital Stay Data Consultations 04/14/24 19:38 ED Decision to Admit Stat 04/15/24 12:35 Consult Pain Management Routine Diagnostic Imagining Performed 04/14/24 17:39 CT abd pelvis IV con only Stat CT lumbar spine w con Stat Pending Results Patient Have Any Pending Studies at Discharge: No Discharge Instructions Given to Patient (Per Discharging Provider) Mrs. Villafana, You were recently hospitalized for back pain. Your imaging was unchanged from prior studies. You were evaluated by pain management who made changes to your medications. 1. Please take either 1000mg of Tylenol every 8 hours or 650mg every 6 hours scheduled. 2. Please use Nucynta 100mg every 6 hours for breakthrough pain. 3. Your last dose of Eliquis will be this evening 04/17/2024 in anticipation of your procedure with pain management on 04/21 4. Please follow up with pain management as scheduled. 5. Please follow up with your PCP within 1-2 weeks of discharge. If you develop any uncontrollable pain, chest pain, or shortness of breath please report back to the ED for further care. Sincerely, Alana Elizondo PA-C Total Time Total Time Spent Total Time Spent (In Minutes): 40 Total Time Includes: Examination of the Patient, Discharge Planning and Medication Reconciliation Coding Level of Care Code 51484 INP/OBS DISCH >30 MIN Diagnoses Acute on chronic back pain M54.9; G89.29
== END 2024-04-17 13:25 | disposition home health service (06) | DRG 552 ==
LOC: 3W 15:39 → ED 15:39 → SUATTDRO 20:31 → 3W 21:25
DX: Z79.01 Long term (current) use of anticoagulants; G25.0 Essential tremor; I50.42 Chronic combined systolic (congestive) and diastolic (congestive) heart failure; Z88.5 Allergy status to narcotic agent; G89.29 Other chronic pain; F39 Unspecified mood [affective] disorder; K58.9 Irritable bowel syndrome, unspecified; Z79.899 Other long term (current) drug therapy; M54.9 Dorsalgia, unspecified; K21.9 Gastro-esophageal reflux disease without esophagitis; E78.5 Hyperlipidemia, unspecified; I11.0 Hypertensive heart disease with heart failure; Z88.2 Allergy status to sulfonamides; I48.21 Permanent atrial fibrillation; Z95.0 Presence of cardiac pacemaker; Z88.8 Allergy status to other drugs, medicaments and biological substances